=== PATIENT | male | born 1960 | race Caucasian/White ===

== ENCOUNTER 2022-09-19 13:50 | Outpatient (RCR) | payer OTHER, SELFPAY | END 2022-10-26 10:22 | disposition home or self-care (01) | LOC: PT 13:50 | PROVIDERS: PCP Family Medicine; Visit Provider Family Medicine | DX: M25.561 Pain in right knee (principal) | CPT/HCPCS: 97110; 97161 ==

== ENCOUNTER 2023-08-22 07:49 | Observation (INO) | payer OTHER, SELFPAY ==
[2023-08-22] VITALS (29 sets, daily range): BP systolic 84–158; BP diastolic 56–92; PULSE 68–95; TEMP 36.8–37.4; O2SAT 92–100; BMI 34.0; BMI 33.5
--- NOTE | 2023-08-22 08:23 | ED_ITS ---
HPI HPI - General Adult General Chief complaint: Nausea/Vomiting/Diarrhea Stated complaint: SHAKING, NAUSEA Time Seen by Provider: 08/22/23 08:14 Source: patient Mode of arrival: walk-in Limitations: no limitations History of Present Illness HPI narrative: This patient is here complaining of multitude of symptoms. He said he woke up this morning and did not feel very good. He took a shower and then he had shaking chills aches and pains mild headache nausea without vomiting. Does not have a sore throat cough congestion shortness of breath or chest discomfort. She says he aches all over cannot get warm. His partner at home is not ill. He did not take anything for fever desk monitor. He said he took his normal morning medications including thyroid medication. Has not had any urinary problems such as frequency urgency hematuria dysuria or recent infections. He has not been on any antibiotics. Does not have any abdominal discomfort just extreme nausea. He had a normal bowel movement this morning. He had some dental issues but he says his sore upper left tooth is no longer bothering him today. Incidentally, in of interest, he is a spanish medical interpreter. He has not had any bites or scratches or known exposure to pathogens. Incidentally he brings up the topic of leptospirosis as possibility in the differential diagnosis. Related Data Home Medications ?Medication ?Instructions ?Recorded ?Confirmed aspirin 81 mg tablet,delayed 81 mg PO DAILY 08/22/23 08/22/23 release (Adult Aspirin Regimen) levothyroxine 100 mcg tablet 100 mcg PO DAILY 08/22/23 08/22/23 loratadine 10 mg tablet 10 mg PO DAILY 08/22/23 08/22/23 Allergies Allergy/AdvReac Type Severity Reaction Status Date / Time methylprednisolone Allergy Severe Verified 08/22/23 07:55 [From Medrol] Opioid HPI Opioid Management Most Recent Opioid Data: No Data to Display Exam Narrative Exam Narrative: Awake alert pleasant afebrile vital signs stable no respiratory distress pulse oximetry normal. GCS 15 no confusion or altered mental status. HEENT shows neck to be soft and supple no meningeal irritation. His teeth are nontender to percussion. There is no pharyngitis. There is no nuchal rigidity or meningeal irritation. Lungs are clear with no wheeze rales rhonchi or coughing. Heart sounds normal with no clicks rubs gallops or murmur. Abdomen is benign with no tenderness guarding masses rebound or tenderness to palpation. Extremities are warm and dry there is no coolness to the extremities there is no diaphoresis or clamminess. Skin there is no evidence cellulitis phlebitis or abscess formation. There is no scratches bites or anything from his that area exposure that I can determine. Constitutional Vital Signs, click to edit/add: Last Vital Signs Temp 98.4 F 08/22/23 07:55 Pulse 90 08/22/23 07:55 Resp 18 08/22/23 07:55 BP 158/92 H 08/22/23 07:55 Pulse Ox 99 08/22/23 07:55 O2 Del Method Room Air 08/22/23 07:55 Course Vital Signs Vital signs: Vital Signs Temperature 98.4 F 08/22/23 07:55 Pulse Rate 90 08/22/23 07:55 Respiratory Rate 18 08/22/23 07:55 Blood Pressure 158/92 H 08/22/23 07:55 Pulse Oximetry 99 08/22/23 07:55 Oxygen Delivery Method Room Air 08/22/23 07:55 Temperature 98.4 F 08/22/23 07:55 Pulse Rate 90 08/22/23 07:55 Respiratory Rate 18 08/22/23 07:55 Blood Pressure 158/92 H 08/22/23 07:55 Pulse Oximetry 99 08/22/23 07:55 Oxygen Delivery Method Room Air 08/22/23 07:55 Medical Decision Making [facility] Narrative Medical decision making narrative: This patient presents with shaking chills aches nausea very very mild headache with no meningeal irritation or nuchal rigidity or altercation or mental status. No focus of infection. Chest x-ray urinalysis CBC all normal. No elevation of his liver function test but a suspicious history possibly consistent with zoonotic disease. The case was discussed with our on-call hospitalist and we w ill admit him for further ongoing investigation. He is getting a second liter of fluids here in the ER. I have not initiated antibiotics pending a discussion with the hospitalist Discharge Plan Discharge Chief Complaint: Nausea/Vomiting/Diarrhea Clinical Impression: Rigors Patient Disposition: Admitted as Observation Time of Disposition Decision: 10:36 Prescriptions / Home Meds: No Action levothyroxine 100 mcg tablet 100 mcg PO DAILY loratadine 10 mg tablet 10 mg PO DAILY aspirin [Adult Aspirin Regimen] 81 mg tablet,delayed release (DR/EC) 81 mg PO DAILY Print Language: Mongolian Referrals: RENEE SHINE [Primary Care Provider] - 1 week
--- NOTE | 2023-08-22 08:26 | ECG_ITS ---
[facility] Test Date: 2023-08-22 Pat Name: SOLO JIMENEZ Department: Room: - Gender: Male [place] Clerk: : 1960 Requested By: RENEE SHINE Order Number: [id number] Reading MD: STUART MELENDEZ Measurements Intervals [place] Rate: 86 P: 9 MA: 160 QRS: 45 QRSD: 80 T: 58 QT: 330 QTc: 374 Interpretive Statements 1100 Sinus rhythm 0102 ARTIFACT PRESENT 9110 normal ECG Compared to ECG 12/01/2018 21:42:26 No significant changes Electronically Signed On 08-22-2023 22:34:46 EDT by STUART MELENDEZ
[2023-08-22] MEDS: 0.9 % SODIUM CHLORIDE 1,000 ML 999 ML IV (08:36)
[2023-08-22] MEDS: ONDANSETRON PF 4 MG/2 ML VIAL IV ×2 (08:36→13:24)
[2023-08-22 08:46] LABS: Alanine Aminotransferase 30 U/L (16-63); Albumin Globulin Ratio 1.1; Albumin Level 3.7 g/dL (3.4-5.0); Alkaline Phosphatase 81 U/L (46-116); Aspartate Amino Transferase 16 U/L (15-37); BUN Creatinine Ratio 10.6; Bilirubin Total 1.5 mg/dL (0.2-1.0); Calcium 8.9 mg/dL (8.5-10.1); Carbon Dioxide 28.2 mmol/L (21.0-32.0); Chloride 103 mmol/L (98-107); Estimated GFR (African America >60 (>=60); Estimated GFR (Non-African Ame >60 (>=60); Globulin 3.4 g/dL; Glucose 117 mg/dL (74-106); Potassium 4.2 mmol/L (3.5-5.1); Sodium 141 mmol/L (136-145); Total Protein 7.1 g/dL (6.4-8.2)
[2023-08-22 08:51] LABS: Hematocrit 45.9 % (42.0-54.0); Mean Corpuscular HGB Conc 32.7 g/dL (29.9-35.2); Mean Corpuscular Hemoglobin 28.8 pg (25.9-34.0); Mean Corpuscular Volume 88.3 fL (80.0-94.0); Mean Platelet Volume 10.1 fL (9.5-13.5); Platelet Count 203 10^3/uL (150-450); Red Cell Distribution Width 12.1 % (11.0-15.0); White Blood Count 8.1 10^3/uL (4.0-11.0)
[2023-08-22 08:55] LABS: Thyroid Stimulating Hormone 0.639 uIU/mL (0.358-3.740); Troponin I High Sensitivity 13.2 pg/mL (4.0-76.1)
[2023-08-22 08:57] LABS: Lactate/Lactic Acid 4.5 mmol/L (0.4-2.0)
--- NOTE | 2023-08-22 08:58 | XR_ITS ---
[address] [address] Patient Name: SOLO JIMENEZ MRN: [id number] date: 1960 Sex: M Assigned Patient Location: ER Current Patient Location: ER Accession/Order Number: [id number] Exam Date: 08/22/2023 09:03 Report Date: 08/22/2023 09:32 At the request of: ROBIN MATTHEWS Procedure: XR chest 1V EXAM: CHEST 1 VIEW HISTORY: Sepsis TECHNIQUE: Chest, one view. COMPARISON: None. FINDINGS: Low lung volumes with vascular crowding. No focal consolidation, pleural effusion, or pneumothorax. Pulmonary vasculature is within normal limits. Cardiomediastinal silhouette is normal. XR/XR chest 1V IMPRESSION: 1. Expiratory chest without acute cardiopulmonary disease. Electronically authenticated by: WANDA SOTO Date: 08/22/2023 09:32
[2023-08-22 09:06] LABS: Internal Control Within Normal Limits; SARS-CoV-2 Ag NEGATIVE (NEGATIVE)
[2023-08-22 09:06] LABS: Influenza Virus A Antigen Negative; Influenza Virus B Antigen Negative; Internal Control Within Normal Limits
[2023-08-22 09:53] LABS: Bilirubin Urine NEGATIVE (NEGATIVE); Blood Urine NEGATIVE (NEGATIVE); Clarity Urine CLEAR (CLEAR); Color Urine LT. YELLOW (YELLOW); Glucose Urine UA NEGATIVE (NEGATIVE); Ketones Urine NEGATIVE (NEGATIVE); Leukocyte Esterase Urine NEGATIVE (NEGATIVE); Nitrite Urine NEGATIVE (NEGATIVE); Protein Urine NEGATIVE (NEG/TRACE); Urobilinogen Urine 0.2 EU/dL (0.2-1.0); pH Urine 6.5 (5.0-9.0)
[2023-08-22 09:54] LABS: Urine Microscopic Indicated NO
[2023-08-22] MEDS: 0.9 % SODIUM CHLORIDE 1,000 ML 1000 ML IV (10:18)
[2023-08-22 10:23] LABS: Band Neutrophils Absolute 0.4 10^3/uL (0.0-0.3); Lymphocytes Absolute Manual 0.56 10^3/uL (1.20-3.80); Monocytes Absolute Manual 0.24 10^3/uL (0.30-0.80); Segmented Neut Absolute Manual 6.48 10^3/uL (1.4-6.5)
[2023-08-22 10:35] LABS: C Reactive Protein 0.87 mg/dL (<=0.50)
[2023-08-22 10:38] LABS: Erythrocyte Sedimentation Rate 18 mm/hr (<=20)
--- NOTE | 2023-08-22 10:51 | P.HP_ITS ---
HPI H&P: HPI History of Present Illness Chief complaint: SHAKING, NAUSEA Narrative: Patient is a 63 y.o white male with hypothyroidism (goiter) who presented to the ER today after not feeling well. He [place] and showered and started to shake, having chills, body aches, headache, nausea without vomiting. He had a normal Bowel movement this morning. No cough, sore throat, fever, shortness of breath or chest pain, or urinary symptoms. 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 No abdominal discomfort or pain just nausea. ER findings of normal CHest X-ray, CBC, cmp, urine. Patient received IVF. Will be admitted to observation for elevated lactate 4.8 and further work up of Viral illness vs Zoonotic infection. Covid and influenza negative. Opioid HPI Opioid Management Most Recent Opioid Data: Ur Phencyclidine Scrn Negative (NEGATIVE) 08/22/23 11:10 Review of Systems ROS Narrative ROS: a complete review of systems were reviewed with patient and are positive as below or listed in History of Chief Complaint. General: no fever, but chills, no night sweats Head: no headache, trauma, visual changes, nausea or vomiting Skin: no reported rashes, itching or sores Eyes: no blurriness of vision Ears: no reported hearing loss, vertigo, earache, or tinnitus Throat: no sore throat, hoarseness, swelling of neck, or tongue pain Heart: no chest pain Lungs: no shortness of breath or cough GI: no diarrhea or vomiting, but nausea Urinary: no urinary urgency, frequency or pain Neuro: no numbness or tingling HEM: no bleeding issues or bruising ENDO: thyroid problems Psych: no anxiety or depression [facility] Medical History (Updated 08/22/23 @ 12:27 by Marina Greenberg DO) Hypothyroidism (acquired) ?E03.9 - Hypothyroidism, unspecified (ICD-10) Meds Home Medications and Allergies Home Medications ?Medication ?Instructions ?Recorded ?Confirmed ?Type aspirin 81 mg tablet,delayed 81 mg PO DAILY 08/22/23 08/22/23 History release (Adult Aspirin Regimen) levothyroxine 100 mcg tablet 100 mcg PO DAILY 08/22/23 08/22/23 History loratadine 10 mg tablet 10 mg PO DAILY 08/22/23 08/22/23 History Allergies Allergy/AdvReac Type Severity Reaction Status Date / Time methylprednisolone Allergy Severe Verified 08/22/23 07:55 [From Medrol] Exam Narrative Exam Narrative: General: Patient is alert, and oriented to person, place and time with normal affect, proper hygiene Skin: no visible rashes, or ulcers Head: atraumatic, acephalic Eyes: PERRLA, no nystagmus present, conjunctiva clear, no scleral icterus Ears: normal gross auditory acuity Heart: Normal rate and rhythm, no murmurs/rubs/gallops Lungs: no audible wheezes, crackles and normal breath sounds all lung rdz Abdomen: Normal audible bowel sounds, no distension, No palpable masses, no organomegaly, no rebound/guarding/ or rigidity Musculoskeletal: no swelling bilateral lower extremities Neuro: CN II-X grossly intact, normal sensation upper and lower extremities Constitutional Vital Signs, click to edit/add: Last Vital Signs Temp 98.2 F 08/22/23 09:16 Pulse 85 08/22/23 10:30 Resp 16 08/22/23 10:30 BP 130/62 08/22/23 10:30 Pulse Ox 96 08/22/23 10:30 O2 Del Method Room Air 08/22/23 09:29 Results Labs Labs: Short CBC 08/22/23 Range/Units 08:00 WBC 8.1 (4.0-11.0) 10^3/uL Hgb 15.0 (14.0-18.0) g/dL Hct 45.9 (42.0-54.0) % Plt Count 203 (150-450) 10^3/uL BMP 08/22/23 08:00 Sodium 141 Potassium 4.2 Chloride 103 Carbon Dioxide 28.2 BUN 12.0 Creatinine 1.13 Glucose 117 H Calcium 8.9 Liver Function 08/22/23 Range/Units 08:00 Total Bilirubin 1.5 H (0.2-1.0) mg/dL AST 16 (15-37) U/L ALT 30 (16-63) U/L Alkaline Phosphatase 81 (46-116) U/L Albumin 3.7 (3.4-5.0) g/dL Urine 08/22/23 Range/Units 09:05 Urine Color Lt. yellow (YELLOW) Urine Clarity Clear (CLEAR) Urine pH 6.5 (5.0-9.0) Ur Specific [place] 1.010 (1.005-1.025) Urine Protein Negative (NEG/TRACE) mg/dL Urine Glucose (UA) Negative (NEGATIVE) mg/dL Assessment and Plan Assessment and Plan (1) Nausea: Assessment and Plan: Broad differential, resp panel pending, lipase, CK level, mag, Thyroid studies all pending. Vitals stable. Continue with IVF and antiemetics. on Telemetry. (2) Chills (without fever): (3) Hypothyroidism (acquired): Assessment and Plan: continue levothyroxine, recheck TFT's Plan patient is full code SCD's and compression hose for DVT prophlaxis further work up, IVF, symptomatic treatment for now, hopeful discharge home tomorrow pending work up results.
[2023-08-22 11:07] LABS: Adenovirus NOT DETECTED (NOT DETECTE); Bordetella parapertussis NOT DETECTED (NOT DETECTE); Coronavirus 229E NOT DETECTED (NOT DETECTE); Coronavirus HKU1 NOT DETECTED (NOT DETECTE); Coronavirus NL63 NOT DETECTED (NOT DETECTE); Coronavirus OC43 NOT DETECTED (NOT DETECTE); Human Metapneumovirus NOT DETECTED (NOT DETECTE); Human Rhinovirus/Enterovirus NOT DETECTED (NOT DETECTE); Influenza A NOT DETECTED (NOT DETECTE); Influenza B NOT DETECTED (NOT DETECTE); Mycoplasma pneumoniae NOT DETECTED (NOT DETECTE); Parainfluenza Virus 1 NOT DETECTED (NOT DETECTE); Parainfluenza Virus 2 NOT DETECTED (NOT DETECTE); Parainfluenza Virus 3 NOT DETECTED (NOT DETECTE); Parainfluenza Virus 4 NOT DETECTED (NOT DETECTE); Respiratory Syncytial Virus NOT DETECTED (NOT DETECTE); SARS-CoV-2 NOT DETECTED (NOT DETECTE)
[2023-08-22 11:25] LABS: Creatine Kinase 48 U/L (39-308)
[2023-08-22 11:35] LABS: Magnesium 1.5 mg/dL (1.8-2.4); TSH W/ REFLEX FT4 0.451 uIU/mL (0.358-3.740)
[2023-08-22 11:40] LABS: Lactate/Lactic Acid 3.7 mmol/L (0.4-2.0)
[2023-08-22 11:44] LABS: Amphetamine Screen Urine NEGATIVE (NEGATIVE); Barbiturates Screen Urine NEGATIVE (NEGATIVE); Benzodiazepines Screen Urine NEGATIVE (NEGATIVE); Buprenorphine Screen Urine NEGATIVE (NEGATIVE); Cannabinoid Screen Urine NEGATIVE (NEGATIVE); Cocaine Screen Urine NEGATIVE (NEGATIVE); Methadone Screen Urine NEGATIVE (NEGATIVE); Methamphetamines Screen Urine NEGATIVE (NEGATIVE); Opiate Screen Urine NEGATIVE (NEGATIVE); Oxycodone Screen Urine NEGATIVE (NEGATIVE); Phencyclidine Screen Urine NEGATIVE (NEGATIVE); Tricyclic Antidepressant Urine NEGATIVE (NEGATIVE)
[2023-08-22] MEDS: LACTATED RINGER'S SOLUTION 1,000 ML 125 ML IV ×2 (13:24→21:09)
[2023-08-22] MEDS: IBUPROFEN 400 MG TABLET PO (13:33)
[2023-08-22] MEDS: MAGNESIUM SULFATE/WATER 2 GM/50 ML PREMIX IV (13:34)
--- NOTE | 2023-08-22 14:07 | SWNOTE1 ---
SW met with pt to discuss any dc needs. Pt is independent with all ADL's and is still working. Pt has no anticipated discharge needs. SW to follow as needed.
[2023-08-22] MEDS: ACETAMINOPHEN 325 MG TABLET 650 MG PO (22:20)
[2023-08-23] VITALS (12 sets, daily range): BP systolic 114–152; BP diastolic 71–77; PULSE 59–97; TEMP 36.6–37.1; O2SAT 95–97
[2023-08-23] MEDS: LACTATED RINGER'S SOLUTION 1,000 ML 125 ML IV (04:34)
[2023-08-23] MEDS: LEVOTHYROXINE SODIUM 100 MCG TABLET PO (05:36)
[2023-08-23] MEDS: IBUPROFEN 400 MG TABLET PO (05:36)
[2023-08-23 05:43] LABS: Basophils Absolute Auto 0.1 10^3/uL (0.0-0.1); Basophils Percent Auto 0.4 % (0.2-2.0); Eosinophils Percent Auto 0.3 % (0.9-7.0); Hematocrit 39.3 % (42.0-54.0); Hemoglobin 12.8 g/dL (14.0-18.0); Immature Granulocytes Abs Auto 0.03 10^3/uL (0.00-0.03); Immature Granulocytes Pct Auto 0.3 % (0.0-0.5); Lymphocytes Absolute Auto 0.7 10^3/uL (1.2-3.8); Lymphocytes Percent Auto 6.4 % (20.5-60.0); Mean Corpuscular HGB Conc 32.6 g/dL (29.9-35.2); Mean Corpuscular Hemoglobin 29.4 pg (25.9-34.0); Mean Corpuscular Volume 90.3 fL (80.0-94.0); Monocytes Absolute Auto 0.5 10^3/uL (0.3-0.8); Monocytes Percent Auto 4.1 % (1.7-12.0); Neutrophils Absolute Auto 10.1 10^3/uL (1.4-6.5); Neutrophils Percent Auto 88.5 % (43.0-75.0); Platelet Count 145 10^3/uL (150-450); Red Blood Count 4.35 10^6/uL (4.70-6.10); Red Cell Distribution Width 12.8 % (11.0-15.0); White Blood Count 11.4 10^3/uL (4.0-11.0)
[2023-08-23 05:53] LABS: Magnesium 2.3 mg/dL (1.8-2.4)
[2023-08-23 05:57] LABS: Alanine Aminotransferase 29 U/L (16-63); Albumin Level 2.9 g/dL (3.4-5.0); Alkaline Phosphatase 57 U/L (46-116); Anion Gap 7.9; Aspartate Amino Transferase 22 U/L (15-37); BUN Creatinine Ratio 14.2; Bilirubin Total 1.2 mg/dL (0.2-1.0); Calcium 8.2 mg/dL (8.5-10.1); Carbon Dioxide 27.9 mmol/L (21.0-32.0); Chloride 106 mmol/L (98-107); Estimated GFR (African America >60 (>=60); Estimated GFR (Non-African Ame >60 (>=60); Globulin 2.9 g/dL; Glucose 116 mg/dL (74-106); Potassium 3.8 mmol/L (3.5-5.1); Sodium 138 mmol/L (136-145); Total Protein 5.8 g/dL (6.4-8.2)
[2023-08-23] MEDS: ASPIRIN 81 MG TABLET.DR PO (08:34)
[2023-08-23] MEDS: CETIRIZINE HCL 10 MG TABLET PO (08:34)
[2023-08-23 09:58] LABS: A. calcoaceticus-baumannii Cpx NOT DETECTED (NOT DETECTE); Bacteroides fragilis NOT DETECTED (NOT DETECTE); Candida albicans NOT DETECTED (NOT DETECTE); Candida auris NOT DETECTED (NOT DETECTE); Candida glabrata NOT DETECTED (NOT DETECTE); Candida krusei NOT DETECTED (NOT DETECTE); Candida parapsilosis NOT DETECTED (NOT DETECTE); Candida tropicalis NOT DETECTED (NOT DETECTE); Cryptococcus neoformans/gattii NOT DETECTED (NOT DETECTE); Enterobacter cloacae complex NOT DETECTED (NOT DETECTE); Enterobacterales NOT DETECTED (NOT DETECTE); Enterococcus faecalis NOT DETECTED (NOT DETECTE); Enterococcus faecium NOT DETECTED (NOT DETECTE); Haemophilus influenzae NOT DETECTED (NOT DETECTE); Klebsiella aerogenes NOT DETECTED (NOT DETECTE); Klebsiella pneumoniae group NOT DETECTED (NOT DETECTE); Listeria monocytogenes NOT DETECTED (NOT DETECTE); Neisseria meningitidis NOT DETECTED (NOT DETECTE); Proteus spp. NOT DETECTED (NOT DETECTE); Pseudomonas aeruginosa NOT DETECTED (NOT DETECTE); Salmonella spp. NOT DETECTED (NOT DETECTE); Serratia marcescens NOT DETECTED (NOT DETECTE); Staphylococcus epidermidis NOT DETECTED (NOT DETECTE); Staphylococcus lugdunensis NOT DETECTED (NOT DETECTE); Stenotrophomonas maltophilia NOT DETECTED (NOT DETECTE); Streptococcus agalactiae NOT DETECTED (NOT DETECTE); Streptococcus pneumoniae NOT DETECTED (NOT DETECTE); Streptococcus pyogenes NOT DETECTED (NOT DETECTE); Streptococcus spp. NOT DETECTED (NOT DETECTE)
--- NOTE | 2023-08-23 11:17 | US_ITS ---
[place] [id number] Patient Name: SOLO JIMENEZ MRN: [id number] date: 1960 Sex: M Assigned Patient Location: MS Current Patient Location: MS Accession/Order Number: [id number] Exam Date: 08/23/2023 13:00 Report Date: 08/23/2023 14:27 At the request of: SHAIKH AURORA Procedure: US right upper quadrant EXAMINATION: US right upper quadrant HISTORY: Nausea COMPARISON: No relevant comparison available. TECHNIQUE: Transabdominal evaluation of the right upper quadrant. FINDINGS: LIVER: Increased echogenicity suggestive of fatty infiltration. Focal areas favoring fatty sparing. No focal mass. Color Doppler demonstrates blood flow within the hepatic veins. PORTAL VEIN: Duplex Doppler demonstrates normal hepatopetal flow pattern with flow velocity averaging 26 cm/s. GALLBLADDER: Abnormal gallbladder wall thickening, 4 mm. No stones or free fluid. Negative sonographic Talamantes's sign. BILIARY: No abnormal dilation or stones. Common bile duct diameter is within normal limits. PANCREASE: No visible mass, abnormal atrophy, or duct dilation. KIDNEY: No hydronephrosis. No visible mass or stones. Size: 10.6 x 6.0 x 6.0 cm US/US right upper quadrant IMPRESSION: 1. Mild gallbladder wall thickening without appreciable stones, free fluid, or abnormal duct dilation. Possibly sequela of chronic cholecystitis. Acute cholecystitis is felt less likely. Electronically authenticated by: ISAIAH CARO Date: 08/23/2023 14:27
[2023-08-23 11:25] LABS: Source Blood
[2023-08-23 11:27] LABS: Staphylococcus spp. DETECTED (NOT DETECTE)
[2023-08-23 11:57] LABS: Lactate/Lactic Acid 1.1 mmol/L (0.4-2.0)
--- NOTE | 2023-08-23 12:21 | CM.NOTE ---
Rounds made with Dr. Pisano, possible discharge to home this afternoon. Pt is afebrile and feels he is back to baseline. Dr. Pisano discussed with pt labs and diagnosis, awaiting blood cultures.
--- NOTE | 2023-08-23 12:36 | PM.DS1 ---
DS: Providers Provider Date of admission: 08/22/23 11:27 Primary care physician: RENEE WREN Admitting clinician: Marina Greenberg Attending physician on admission: Marina Greenberg Attending physician on discharge: Shaikh Aliya Discharging clinician: Shaikh Aliya Anticipated date of discharge: 08/23/23 DS: Diagnosis Discharge Diagnosis (1) SIRS (systemic inflammatory response syndrome): Assessment and plan: Presented with SIRS -(HR/RR) -no source of infection identified. Normal CXR, Normal UA. Had nausea on presentation but no diarrhea, and GI symptoms now resolved. Blood cultures positive for staph species - likely contaminant - final ID is pending. (2) Nausea: Assessment and plan: Resolved. (3) Chills (without fever): Assessment and plan: Resolved. (4) Lactic acidosis: Assessment and plan: 4-5 --> now normal. Unclear explanation (5) Hypothyroidism (acquired): Assessment and plan: On levothyroxine. (6) Chronic cholecystitis without calculus: Assessment and plan: US - possible chronic cholecystitis. No gallstones. No RUQ pain. Follow up with surgery as outpatient. (7) Blood bacterial culture positive: Assessment and plan: Staph detected on blood PCR. Likely skin contaminant. DS: Summary Hospital Course Hospital Course: 63-year-old male presented with sudden onset rigors/chills and nausea after he took a shower yesterday. He had no other symptoms or associated complaints and denies cough, shortness of breath, abdominal pain, constipation, diarrhea, urinary complaints. 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 Come in ED reviewed positive SIRS along with lactic acidosis. Chest x-ray is normal. No evidence of UTI. He did have minimal elevation in bilirubin for which an abdominal ultrasound was ordered. US liver shows possible chronic cholecystitis, no gallstones. Lactic acidosis resolved with IV fluids. Blood cultures are positive for staph species likely skin contaminant. Full identification is pending. Even though [facility] is low incidence of leptospirosis, in the absence of alternative diagnosis, it is not unreasonable to treat him for possible anicteric acute phase of leptospirosis with oral doxycycline given his occupational history. Patient stable for discharge medically. Will need follow up with PCP and General Surgery. Status at Discharge Functional status at discharge: independent ambulation Overall status at discharge: patient is back to baseline Time Spent with Patient Time attestation: Total time spent providing and/or coordinating discharge services: Time spent: greater than 30 minutes Exam Constitutional Vital Signs, click to edit/add: Last Vital Signs Temp 98.4 F 08/23/23 08:29 Pulse 62 08/23/23 12:00 Resp 18 08/23/23 08:29 BP 114/71 08/23/23 08:29 Pulse Ox 95 08/23/23 11:24 O2 Del Method Room Air 08/23/23 11:24 Documenting provider has reviewed patient's vital signs: yes Common normals: no apparent distress and oriented x3 General appearance: cooperative HENMT Common normals: normocephalic and head/scalp atraumatic Head and scalp: normocephalic and atraumatic Eye Common normals: conjunctivae normal and no scleral icterus Conjunctiva: conjunctiva(e) normal Respiratory Common normals: normal respiratory effort and clear to auscultation bilaterally Effort & inspection: able to speak in complete sentences Auscultation: clear to auscultation bilaterally Cardio Common normals: regular rate, S1 normal heart sound and S2 normal heart sound Rate: regular rate Heart sounds: S1 normal and S2 normal GI Common normals: Normal to inspection, nondistended, normoactive bowel sounds present, soft to palpation, non-tender and no hepatosplenomegaly Palpation: soft and no hepatosplenomegaly Extremity Common normals: no clubbing, cyanosis or edema Neuro Common normals: oriented x3, moves all extremities and no focal motor deficits Psych Common normals: mental status grossly normal, denies hallucinations, denies homicidal ideation and denies suicidal ideation DS: Data Data Completed and Pending Labs on day of discharge: Labs from last 24 hours 08/23/23 08/23/23 08/22/23 11:32 05:13 09:23 WBC 11.4 H RBC 4.35 L Hgb 12.8 L Hct 39.3 L MCV 90.3 MCH 29.4 MCHC 32.6 RDW 12.8 Plt Count 145 L MPV 10.0 Neut % (Auto) 88.5 H Lymph % (Auto) 6.4 L [place] % (Auto) 4.1 Eos % (Auto) 0.3 L Baso % (Auto) 0.4 Neut # (Auto) 10.1 H Lymph # (Auto) 0.7 L [place] # (Auto) 0.5 Eos # (Auto) 0.0 Baso # (Auto) 0.1 Abs Immat Gran (auto) 0.03 Imm/Tot Granulo (auto) 0.3 Sodium 138 Potassium 3.8 Chloride 106 Carbon Dioxide 27.9 Anion Gap 7.9 BUN 15.0 Creatinine 1.06 Est GFR ( Amer) >60 Est GFR (Non-Af Amer) >60 BUN/Creatinine Ratio 14.2 Glucose 116 H Lactate 1.1 Calcium 8.2 L Magnesium 2.3 Total Bilirubin 1.2 H AST 22 ALT 29 Alkaline Phosphatase 57 Total Protein 5.8 L Albumin 2.9 L Globulin 2.9 Albumin/Globulin Ratio 1.0 Specimen Source Blood A.calcoaceticus-baumannii cmplx PCR Not detected Adenovirus (PCR) Bacteroides fragilis Not detected B. pertussis DNA (PCR) B.parapertussis DNA PCR Jen albicans (PCR) Not detected Jen auris (PCR) Not detected C. glabrata (PCR) Not detected C. krusei (PCR) Not detected C. parapsilosis (PCR) Not detected C. tropicalis (PCR) Not detected C. pneumoniae DNA (PCR) Coronavirus Type OC43 Coronavirus Type HKU1 Coronavirus Type 229E Coronavirus Type NL63 C. neoform/gattii (PCR) Not detected Enterobacterales (PCR) Not detected E. cloacae complex PCR Not detected Enterococc faecalis PCR Not detected Enterococc faecium PCR Not detected E. coli (PCR) Not detected H. influenzae (PCR) Not detected Human Metapneumovir PCR Influenza Type A (PCR) Influenza Type B (PCR) Klebsiella aerogenes (PCR) Not detected Klebsiella oxytoca PCR Not detected K. pneumoniae group (PCR) Not detected List. monocytogenes PCR Not detected M. pneumoniae (PCR) N. meningitidis (PCR) Not detected Parainfluenza PCR Parainfluenza 2 (PCR) Parainfluenza 3 (PCR) Parainfluenza 4 (PCR) Proteus spp. (copies/mL) Not detected RSV (RT-PCR) Entero/Rhino (PCR) Salmonella spp. (PCR) Not detected SARS-CoV-2 (PCR) Serratia marcescens PCR Not detected Staphylococcus sp PCR Detected A* Staph aureus (PCR) Not detected mecA/C & MREJ Resist Gene Not applicable mecA/C-Methicil Resis Gene Not applicable mcr-1 Colistin Res Gene PCR Not applicable Staph epidermidis (PCR) Not detected Staph lugdunensis (TEM-PCR) Not detected S. maltophilia (PCR) Not detected Streptococcus sp PCR Not detected Strep agalactiae (PCR) Not detected Strep pneumoniae (PCR) Not detected S. pyogenes (PCR) Not detected P. aeruginosa (PCR) Not detected Liza/B-Vanco Res Genes Not applicable blaIMP Car res Gene PCR Not applicable KPC (blaKPC) Detect PCR Not applicable NDM (blaNDM) Detect PCR Not applicable OXA-48 Carbapenem Resis Gene (PCR) Not applicable blaVIM Car Res Gene PCR Not applicable CTX-M ESBL (PCR) Not applicable 08/22/23 08:45 WBC RBC Hgb Hct MCV MCH MCHC RDW Plt Count MPV Neut % (Auto) Lymph % (Auto) [place] % (Auto) Eos % (Auto) Baso % (Auto) Neut # (Auto) Lymph # (Auto) [place] # (Auto) Eos # (Auto) Baso # (Auto) Abs Immat Gran (auto) Imm/Tot Granulo (auto) Sodium Potassium Chloride Carbon Dioxide Anion Gap BUN Creatinine Est GFR ( Amer) Est GFR (Non-Af Amer) BUN/Creatinine Ratio Glucose Lactate Calcium Magnesium Total Bilirubin AST ALT Alkaline Phosphatase Total Protein Albumin Globulin Albumin/Globulin Ratio Specimen Source A.calcoaceticus-baumannii cmplx PCR Adenovirus (PCR) Not detected Bacteroides fragilis B. pertussis DNA (PCR) Not detected B.parapertussis DNA PCR Not detected Jen albicans (PCR) Jen auris (PCR) C. glabrata (PCR) C. krusei (PCR) C. parapsilosis (PCR) C. tropicalis (PCR) C. pneumoniae DNA (PCR) Not detected Coronavirus Type OC43 Not detected Coronavirus Type HKU1 Not detected Coronavirus Type 229E Not detected Coronavirus Type NL63 Not detected C. neoform/gattii (PCR) Enterobacterales (PCR) E. cloacae complex PCR Enterococc faecalis PCR Enterococc faecium PCR E. coli (PCR) H. influenzae (PCR) Human Metapneumovir PCR Not detected Influenza Type A (PCR) Not detected Influenza Type B (PCR) Not detected Klebsiella aerogenes (PCR) Klebsiella oxytoca PCR K. pneumoniae group (PCR) List. monocytogenes PCR M. pneumoniae (PCR) Not detected N. meningitidis (PCR) Parainfluenza PCR Not detected Parainfluenza 2 (PCR) Not detected Parainfluenza 3 (PCR) Not detected Parainfluenza 4 (PCR) Not detected Proteus spp. (copies/mL) RSV (RT-PCR) Not detected Entero/Rhino (PCR) Not detected Salmonella spp. (PCR) SARS-CoV-2 (PCR) Not detected Serratia marcescens PCR Staphylococcus sp PCR Staph aureus (PCR) mecA/C & MREJ Resist Gene mecA/C-Methicil Resis Gene mcr-1 Colistin Res Gene PCR Staph epidermidis (PCR) Staph lugdunensis (TEM-PCR) S. maltophilia (PCR) Streptococcus sp PCR Strep agalactiae (PCR) Strep pneumoniae (PCR) S. pyogenes (PCR) P. aeruginosa (PCR) Liza/B-Vanco Res Genes blaIMP Car res Gene PCR KPC (blaKPC) Detect PCR NDM (blaNDM) Detect PCR OXA-48 Carbapenem Resis Gene (PCR) blaVIM Car Res Gene PCR CTX-M ESBL (PCR) Discharge Plan Discharge Disposition: Home, Self-Care Discharge Medications: New doxycycline hyclate 100 mg capsule 100 mg PO BID 7 Days Qty: 14 0RF Continued levothyroxine 100 mcg tablet 100 mcg PO DAILY loratadine 10 mg tablet 10 mg PO DAILY aspirin [Adult Aspirin Regimen] 81 mg tablet,delayed release (DR/EC) 81 mg PO DAILY Activity: increase activity as tolerated Diet: advance to your usual diet Print Language: Estonian Patient Instructions: Doxycycline (By mouth), Acute Nausea and Vomiting (DC) Forms: Portal Instructions Follow Up Appointments: August 28 @ 7:45am with Dr. Wren [phone] Follow up with General Surgery in 2-3 weeks
[2023-08-23] MEDS: ACETAMINOPHEN 325 MG TABLET 650 MG PO (14:36)
--- NOTE | 2023-08-26 15:39 | CM.DCFOLLOWU ---
Person spoke with: patient How are you feeling? not 100%, but getting better How is your pain? none Did you understand your discharge instructions? yes Do you have any questions about your discharge instructions? no Were you given any prescriptions at discharge? yes Were you able to get your prescriptions filled? yes Do you understand how to take your medications as ordered? yes Do you have any questions about your follow up appointment and do you plan to keep your follow up appointment? no questions, has spoke to his PCP already in regards to follow up Is there anything else that you would like to discuss? no Questions/Comments/Concerns/Other: no
== END 2023-08-23 15:40 | disposition home or self-care (01) ==
LOC: ER 10:37 → MS 11:30
PROVIDERS: Internal Medicine; Admitting Provider Family Medicine; Emergency Provider Emergency Medicine Emergency Medical Services; PCP Family Medicine; Visit Provider Family Medicine
DX: R11.0 Nausea (principal); R65.10 Systemic inflammatory response syndrome (SIRS) of non-infectious origin without acute organ dysfunction; R68.83 Chills (without fever); E03.9 Hypothyroidism, unspecified; Z79.890 Hormone replacement therapy; E83.42 Hypomagnesemia; E87.20 Acidosis, unspecified; K81.1 Chronic cholecystitis; Z20.822 Contact with and (suspected) exposure to COVID-19
CPT/HCPCS: 0202U; 36415; 71045; 76705; 80053; 80307; 81003; 82550; 83605; 83690; 83735; 84443; 84484; 85007; 85025; 85027; 85652; 86140; 87040; 87150; 87186; 87804; 87811; 93005; 94761; 96374; 96375; 96376; 99285; G0378

== ENCOUNTER 2023-09-05 07:22 | Outpatient (OUT) | payer OTHER, SELFPAY ==
--- NOTE | 2023-09-05 07:24 | US_ITS ---
[address] [address] Patient Name: SOLO JIMENEZ MRN: [id number] date: 1960 Sex: M Assigned Patient Location: US Current Patient Location: US Accession/Order Number: [id number] Exam Date: 09/05/2023 07:33 Report Date: 09/05/2023 08:07 At the request of: LOULOU CRUZ Procedure: US thyroid EXAMINATION: US thyroid HISTORY: Acquired Hypothyroidism E03.9, Multinodular Goiter E04.2 COMPARISON: 07/31/2022 TECHNIQUE: Sonographic images of the thyroid gland were obtained. FINDINGS: The right thyroid lobe measures 4.7 x 2.0 x 1.8 cm. Heterogeneous echotexture. Multiple nodules. The thyroid isthmus measures 0.9 cm, heterogeneous. The left thyroid lobe measures 4.8 x 1.7 x 1.1 cm. Heterogeneous echotexture. Multiple nodules The 2 most suspicious nodules: Nodule 1: Right thyroid lobe. 1.7 x 1.3 x 1.2 cm. Solid, isoechoic, tall, smooth margins, [place] calcifications. TR 5 Nodule 2: Left thyroid lobe. 1.2 x 1.3 x 1.0 cm. Solid, hypoechoic, wide, smooth, no calcifications. TR 4. US/US thyroid IMPRESSION: Stable multinodular thyroid gland TI-RADS: The [employer] TI-RADS committee's white paper recommendations for thyroid lesions classified as TR5 (highly suspicious) are listed below: > 0.5 cm. Annual ultrasound follow-up for up to 5 years. > 1.0 cm. FNA. J. Am Melva Radiol 2017;14:587-595. Electronically authenticated by: CHRIS HOLLEY Date: 09/05/2023 08:07
--- OUTSIDE RECORDS SUMMARY | 2023-09-05 07:24 | XMS_ITS ---
Patient Summarization (C-CDA 2.1 CCD) Created on: September 05, 2023 SOLO JIMENEZ : 1960 Sex: Male Author Organization Sample organization Care Team Providers Care Oncology Nurse Navigator Name Role Phone MD Annel Eaton Primary Care Provider MD Jairo Estevez Attending Provider Annel Eaton Primary Care Unavailable Jairo Estevez Admitting UnavailJairo Collins Attending UnavailJairo Collins Attending Unavailabl chandler Eaton, Annel Lemus Primary Care Unavailable Jairo Estevez Admitting Unavailabl e EATON ., DR ANNEL Lemus Primary Care Unavailable SCOTT ., OLGA Admitting Unavailable SCOTT ., OLGA Attending Unavailable SCOTT ., OLGA Consulting Unavailable TIMMIS, DR JAMIL Admitting Unavailable TIMMIS, DR JAMIL Attending Unavailable EATON ., DR ANNEL Lemus Primary Care Unavailable TIMMIS, DR JAMIL Consulting Unavailable ZIEBTOBY, DR ISAIAH Harden Consulting Unavailable EATON ., DR ANNEL Lemus Admitting Unavailable EATON ., DR ANNEL Lemus Attending Unavailable EATON ., DR ANNEL Lemus Primary Care Unavailable EATON ., DR ANNEL Lemus Consulting Unavailable TIMMIS, DR JAMIL Admitting Unavailable TIMMIS, DR JAMIL Attending Unavailable EATON ., DR ANNEL Lemus Primary Care Unavailable TIMMIS, DR JAMIL Consulting Unavailable LOGAN, DR CHRIS Samuel Consulting Unavailable TIMMIS, DR JAMIL Admitting Unavailable TIMMIS, DR JAMIL Attending Unavailable EATON ., DR ANNEL Lemus Primary Care Unavailable TIMMIS, DR JAMIL Consulting Unavailable GORDO, DR ISAIAH Harden Consulting Unavailable [place] Wren Primary Care Physician [phone] [place] Wren Attending Unavailable [place] Wren Admitting Unavailable [place] Wren Admitting Unavailable [place] Wren Attending Unavailable [place] Wren Admitting Unavailable [place] Wren Attending Unavailable [place] Wren Attending Unavailable [place] Wren Attending Unavailable [place] Wren Attending Unavailable [place] Wren Attending Unavailable [place] Wren Attending Unavailable ROBERT GOODMAN Admitting Unavailable ROBERT GOODMAN Attending Unavailable ROBERT GOODMAN Referring Unavailable [place] Wren Admitting Unavailable [place] Wren Attending Unavailable [place] Wren Attending Unavailable [place] Wren Admitting Unavailable Allergies Allergy Classification Reported Allergen(s) Allergy Type Date of Onset Reaction(s) Facility (3 sources) Bee pollen; Translations: [bee pollen] Allergy to substance 12-22-19 17 Hives [facility] (8 sources) methylPREDNISolone; Translations: [methylprednisolone] Drug Allergy 12-22-19 17 Unknown (qualifier value) [facility] (1 source) bee venom Drug allergy (disorder) 02-25-20 13 [facility] (1 source) methylPREDNISolone Drug Allergy 02-25-20 13 [facility] (1 source) Shellfish Drug allergy (disorder) 02-18-20 13 [facility] (5 sources) Bee/Wasp/Ant venom; Translations: [Bee Stings] Food allergy Unknown (qualifier value) [facility] (5 sources) predniSONE; Translations: [prednisone] Drug Allergy Unknown (qualifier value) [facility] Encounters Encounter Date Encounter Type Care Provider Facility Start: 09-08-2024 ambulatory [place] Wren Facility :[facility] Start: 08-30-2023 ambulatory [place] Wren Facility:[facility]3] Start: 08-29-2023 End: 08-29-2023 Lab Drop off [place] Wren [facility] Start: 08-29-2023 End: 08-29-2023 ambulatory [place] Wren Facility:[facility] Start: 08-26-2023 ambulatory [place] Wren Facility :CD:[id number] Start: 01-02-2023 End: 01-02-2023 ambulatory ROBERT GOODMAN Facility:[facility] Start: 12-10-2022 End: 12-10-2022 ambulatory Chico Wren Facility:[facility] Start: 11-06-2022 End: 11-06-2022 Lab Drop off [place] Wren [facility] Start: 11-06-2022 End: 11-06-2022 ambulatory [place]ico Pereyra Holger Facility:[facility] Start: 10-31-2022 End: 10-31-2022 ambulatory [place]ico Pereyra Holger Facility:[facility] Start: 10-31-2022 End: 10-31-2022 Patient encounter procedure Ch[place] ChandlerGita Holger [facility] Start: 09-10-2022 End: 09-10-2022 ambulatory [facility] Wren [facility] Start: 09-06-2022 ambulatory [place] Wren Facility [facility] Start: 07-31-2022 End: 08-01-[address] LOULOU CRUZ Facility: Start: 04-05-2022 End: 04-05-[address] LOULOU CRUZ Facility:[facility] Start: 02-20-2022 End: 02-21-[address] LOULOU CRUZ Facility:[facility] Start: 12-29-2021 End: 12-29-2021 ambulatory Annel Eaton Facility:[facility] Start: 12-29-2021 End: 12-29-2021 Admission to same day surgery center MD Annel Eaton Work Phone: [facility] Start: 12-29-2021 End: 12-29-2021 ambulatory MD Annel Eaton Work Phone: [facility] Work Phone: Start: 12-27-2021 End: 12-27-2021 ambulatory Jairo Estevez Facility:[facility] Start: 12-27-2021 End: 12-27-2021 ambulatory MD Annel Eaton Work Phone: [facility] Work Phone: Start: 12-27-2021 End: 12-27-2021 Patient encounter procedure MD Annel Eaton Work Phone: [facility] Start: 10-25-2021 End: 10-26-[address] ANNEL EATON . Facility:[facility] Start: 10-19-2021 End: 10-19-[address] ANNEL EATON . Facility: Goals Date Patient Goal Desired Activity /State Immunizations Immunization Date Immunization Notes Care Provider Fa pauline 09-26-2021 SARS-CoV-2 mRNA (lwlgvsmnuuu-pkuc-algkf se) vaccine [place] Wren [facility] 01-26-2021 influenza virus vaccine, unspecified formulation [place] Wren [facility] 01-26-2021 SARS-CoV-2 (COVID-19 ) mRNA BNT-162b2 vax [place] Wren [facility] Comment on above: Result Comment: 2022: [id number] 09-16-2020 tetanus toxoid, redu naveed diphtheria toxoid, and acellular pertussis vaccine, adsorbed [place] Wren [facility] 06-28-2020 SARS-CoV-2 (COVID-19 ) mRNA BNT-162b2 vax [place] W[place] [facility] 06-06-2020 SARS-CoV-2 (COVID-19 ) mRNA BNT-162b2 [employer] [place] Wren [facility] 01-28-2020 influenza virus vaccine, unspecified formulation [place] Wren [facility] 01-05-2019 influenza virus vaccine, unspecified formulation [place] Wren [facility] Medications Current Medications Medication Drug Class(es) Dates Sig (Normalized) Sig (Original) aspirin 81 mg delayed release oral tablet (3 sources) Platelet Aggregation Inhibitor, Nonsteroidal Anti-inflammatory Drug Start: 09-10-2022 take 1 tablet by mouth once daily aspirin 81 mg Oral EC Tab 81 mg = 1 tab(s), Oral, Daily, Refills(s) 0 Start Date: 09/10/22 Status: Ordered buPROPion hydrochloride 75 mg oral tablet (1 source) Aminoketone Start: 12-29-2021 Bupropion Hcl Active 75 MG PO Daily December 29, 2021 12:00am administer 6 hours apart calcium carbonate 1250 mg / cholecalciferol 200 unt oral tablet (2 sources) Vitamin D Start: 12-21-2016 Calcium Carbonate-Vitamin D3 (Calcium 500 + D) 500 mg(1,250mg) -200 unit Tablet Active 1000 MG PO Daily December 21, 2016 12:00am docusate sodium 100 mg oral tablet (1 source) Start: 08-26-2023 take 100 mg by mouth twice daily as needed for constipation Dulcolax Stool Softener 100 mg, Oral, BID, PRN as needed for constipation, Refills(s) 0 Start Date: 08/26/23 Status: Ordered doxycycline hyclate 100 mg oral tablet (1 source) Tetracycline-class Drug Start: 08-26-2023 End: 09-02-2023 take 100 mg by mouth twice daily doxycycline 100 mg, Oral, BID, X 7 day(s), Refills(s) 0 Start Date: 08/26/23 Stop Date: 09/02/23 Status: Ordered ibuprofen 200 mg oral tablet (3 sources) Nonsteroidal Anti-inflammatory Drug Start: 08-26-2023 ibuprofen 200 mg, Oral, PRN Headache, Refills(s) 0 Start Date: 08/26/23 Status: Ordered Start: 12-21-2016 take 2 tablets by mo [facility] once daily Ibuprofen (Advil) 200 mg Tablet Active 2 TAB PO Daily December 21, 2016 12:00am Lactobacillus acidophilus (5 sources) Start: 09-10-2022 Acidophilus Se e Instructions, Refill(s) 0, 100 million every 24 hours orally Start Date: 09/10/22 Status: Ordered Start: 12-21-2016 take 1 tablet by [facility] once daily Lactobacillus Acidophilus (Acidophilus) Capsule Active 1 TAB PO Daily December 21, 2016 12:00am levothyroxine sodium 0.1 mg oral tablet (4 sources) l-Thyroxine Start: 09-10-2022 take 1 tablet by mouth once daily levothyroxine 100 mcg (0.1 mg) Tab 100 mcg = 1 tab(s), Oral, Daily, Refills(s) 0 Start Date: 09/10/22 Status: Ordered Start: 12-29-2021 take 75 ug by mouth once daily Levothyroxine Active 75 MCG PO Daily December 29, 2021 12:00am loratadine 10 mg oral tablet (3 sources) Start: 07-15-2023 take 1 tablet by mouth once daily loratadine 10 mg Tab See Instructions, TAKE 1 TABLET BY MOUTH EVERY DAY, # 90 tab(s), Refills(s) 1, Pharmacy: [id number], 176.3, cm, 09/10/22 7:16:00 EDT, Height/Length Dosing, 109.8, kg, 09/10/22 7:16:00 EDT, Weight Dosing Start Date: 07/15/23 Status: Ordered Start: 10-22-2022 take 1 tablet by cayden th once daily loratadine 10 mg Tab 10 mg = 1 tab(s), Oral, Daily, # 30 tab(s), Refills(s) 0, Pharmacy: [facility]/pharmacy #[id number], 176.3, cm, 09/10/22 7:16:00 EDT, Height/Length Dosing, 109.8, kg, 09/10/22 7:16:00 EDT, Weight Dosing Start Date: 10/22/22 Status: Ordered Multivitamin,Tx-Minerals (Multi-Vitamin Hp/Minerals) Capsule (2 sources) Start: 12-21-2016 take 1 tablet by mouth once daily Multivitamin,Tx-Minerals (Multi-Vitamin Hp/Minerals) Capsule Active 1 TAB PO Daily December 21, 2016 12:00am Psyllium (2 sources) Start: 09-10-2022 Metamucil See Instructions, 2 tablespoons orally every 24 hours, Refills(s) 0 Start Date: 09/10/22 Status: Ordered Payers Date Payer Category Payer Self-pay [id number] 1960 Unknown [id number] 2.16.84 [id number] 1960 Unknown [id number] 2.16.84 0.1.910896.3.579.2.593 1960 Unknown [id number] 2.16.84 0.1.534962.3.579.2.593 1960 Unknown [id number] 2.16.84 0.1.655547.3.579.2.593 1960 Unknown [id number] 2.16.84 0.1.860888.3.579.2.593 1960 Unknown [id number] 2.16.8 40.1.835491.3.579.2.727 1960 Unknown [id number] 2.16.8 40.1.237093.3.579.2.727 1960 Unknown [id number] 2.16.8 40.1.878017.3.579.2.727 1960 Unknown [id number] 2.16.8 40.1.440139.3.579.2.727 1960 Unknown [id number] 2.16.8 40.1.263056.3.579.2.727 1960 Unknown [id number] 2.16.8 40.1.861023.3.579.2.727 1960 Unknown [id number] 2.16.8 40.1.669186.3.579.2.727 1960 Unknown [id number] 2.16.8 40.1.193703.3.579.2.727 1960 Unknown [id number] 2.16.8 40.1.347494.3.579.2.727 1960 Unknown [id number] 2.16.8 40.1.548821.3.579.2.727 1960 Unknown [id number] 2.16.8 40.1.186813.3.579.2.531 Unknown [id number] 2.16.8 40.1.108819.3.579.2.531 Plan of Treatment Date Care Activity Detail Author Start: 12-29-2021 [facility] Patient Education Hemorrhoids Co nasra Polyps Diverticulitis [facility] Work Phone: Problems Active Problems Problem Classification Problem Date Documented Date Episodic/Chronic Biliary tract disease (1 source) Chronic cholecystitis 08-29-2023 Episodic Disorders of lipid metabolism (4 sources) Pure hypercholesterolemia, unspecified; Translations: [Dyslipidemia] Onset: 10-29-2021 09-05-2022 Chronic Noninfectious gastroenteritis (1 source) Gastroenteritis 08-29-2023 Episodic Other aftercare (1 source) Post-discharge follow-up 08-29-2023 Episodic Other and unspecified benign neoplasm (1 source) History of polyp of colon; Translations: [Personal history of colonic polyps] 12-29-2021 Episodic Other and unspecified benign neoplasm (1 source) Personal history of colonic polyps; Translations: [Personal history of colonic polyps] 12-29-2021 Episodic Other and unspecified benign neoplasm (1 source) Personal history of colonic polyps; Translations: [Personal history of colonic polyps] Onset: 12-29-2021 Episodic Other male genital disorders (3 sources) Disorder of prostate 09-05-2022 Episodic Other non-epithelial cancer of skin (3 sources) Malignant neoplasm of skin 09-05-2022 Episodic Comment on above: squamous cell face Other screening for suspected conditions (not mental disorders or infectious disease) (2 sources) Patient encounter status; Translations: [Encounter for screening for malignant neoplasm of colon] 12-21-2016 Episodic Syncope (1 source) Vasovagal syncope 08-29-2023 Episodic Thyroid disorders (11 sources) Nontoxic multinodular goiter; Translations: [Nontoxic single thyroid nodule] Onset: 04-05-2022 Chronic Unclassified (1 source) Encounter for preprocedural laboratory examination; Translations: [Encounter for preprocedural laboratory examination] Onset: 12-27-2021 Unclassified (3 sources) Pain of knee region 10-24-2022 Unclassified (4 sources) Patient encounter status 09-10-2022 Viral infection (3 sources) Herpes zoster 09-05-2022 Episodic Comment on above: 2016 Past or Other Problems Problem Classification Problem Date Documented Date Episodic/Chronic Allergic reactions (3 sources) Allergy, unspecified, initial encounter; Translations: [ALLERGY UNSPECIFIED INITIAL ENCNTR] Onset: 10-19-2021 Episodic E Codes: Adverse effects of medical drugs (1 source) Adverse effect of glucocorticoids and synthetic analogues, initial encounter; Translations: [ADVRS EFF GLUCOCORT SYN ANALOG INIT] Onset: 10-20-2021 Episodic Other aftercare (1 source) detention (current) use of aspirin; Translations: [JUNIOR DATABASE ADMINISTRATOR CURRENT USE OF ASPIRIN] Onset: 10-20-2021 Episodic Other aftercare (1 source) Other exterminator (current) drug therapy; Translations: [OTH JAIL CURRENT DRUG THERAPY] Onset: 10-20-2021 Episodic Other male genital disorders (1 source) Disorder of prostate, unspecified; Translations: [DISORDER OF PROSTATE UNSPECIFIED] Onset: 10-29-2021 Episodic Residual codes; unclassified (1 source) Edema, unspecified; Translations: [EDEMA UNSPECIFIED] Onset: 10-29-2021 Episodic Residual codes; unclassified (1 source) Flushing; Translations: [FLUSHING] Onset: 10-20-2021 Episodic Procedures Date Procedure Procedure Detail Performing Clinician Start: 12-29-2021 Colonoscopy MD Annel Null ghnolvia Work Phone: Start: 10-25-[address] ANNEL HAWKINS . Comment on above: Performed By: #### F T4, PSAD #### [facility] [address] [place] [address] Dr. Kareem Roldan Arthroscopy of knee [place] Harden oss Comment on above: left, removed torn t issue, left rethaular release patella Hordeolum externum (disorder) [place] Wren Comment on above: couple surgeries lef t eye 2 years apart Other (qualifier value) Bhavin Wren Comment on above: cadavor cruciate lig ament left knee 2020 SARS Antigen (LFIA) MD Annel Syed night Work Phone: Results Test Name Value Interpretation Reference Range Facility Ambulatory Visit Summaryon 0 08-29-2023 Ambulatory Visit Summary SOLO JIMENEZ :1960 Visit Date:08/29/2023 Ambulatory Visit Instructions Your Diagnosis Hospital discharge follow-up Gastroenteritis Chronic cholecystitis Prostate cancer screening Vasovagal episode Class 1 obesity due to excess calories in adult Nonsmoker BMI 33.0-33.9,adult Your Care Team Attending Physician - [place] Wren MD Primary Care Physician - [place] Wren MD This Is Your Medications List aspirin (aspirin 81 mg Oral EC Tab) docusate (Dulcolax Stool Softener) doxycycline ibuprofen lactobacillus acidophilus (Acidophilus) levothyroxine (levothyroxine 100 mcg (0.1 mg) Tab) loratadine (loratadine 10 mg Tab) Procedures Performed Arthroscopy of knee, Other, Stye. Discharge Vitals Temperature (Temporal Artery) 36.6 ?C Heart Rate (Peripheral) 66 Respiratory Rate 16 Blood Pressure 132/80 Height 176.3 cm Height 69 in Weight 104.0 kg Weight 228.8 lb BMI 33.46 What to do next Scheduled Follow-Up Appointments Saturday 8:15 AM EDT With: [place] Wren MD Where: [facility] [place] Normal [facility] CBC w/ Auto Diffon 4 Basophils/100 WBC (Bld) 1.4 % Normal 0.0-2.0 [facility] Comment on above: Performed By: #### 2 [id number] #### [facility] [address] [place] [address] Basophils/Leukocytes Auto (Bld) [Pure # fraction] 0.1 E9/L Normal 0.0-0.2 [facility] Comment on above: Performed By: #### 2 [id number] #### [facility] [address] [place] [address] Eosinophils (Bld) [#/Vol] 0.3 E9/L Normal 0.0-0.5 [facility] Comment on above: Performed By: #### 2 [id number] #### [facility] [address] [place] [address] Eosinophils/100 WBC (Bld) 4.7 % Normal 0.0-8.0 [facility] Comment on above: Performed By: #### 2 [id number] #### [facility] [address] [place] [address] Erythrocyte distribution width (RBC) [Ratio] 13.2 % Normal 10.9-14.2 [facility] Comment on above: Performed By: #### 2 [id number] #### [facility] [address] [place] [address] Hematocrit (Bld) [Volume fraction] 42.2 % Normal 37.7-49.0 [facility] Comment on above: Performed By: #### 2 [id number] #### [facility] [address] [place] [address] Hemoglobin (Bld) [Mass/Vol] 14.3 g/dL Normal 13.5-17.5 [facility] Comment on above: Performed By: #### 2 [id number] #### [facility] [address] [place] [address] Lymphocytes (Bld) [#/Vol] 1.9 E9/L Normal 1.0-4.0 [facility] Comment on above: Performed By: #### 2 [id number] #### [facility] [address] [place] [address] Lymphocytes/100 WBC (Bld) 31.2 % Normal 14.0-50.0 [facility] Comment on above: Performed By: #### 2 [id number] #### [facility] [address] [place] [address] MCH (RBC) [Entitic mass] 29.5 pg Normal 27.0-34.0 [facility] Comment on above: Performed By: #### 2 [id number] #### [facility] [address] [place] [address] MCHC (RBC) [Mass/Vol] 33.8 g/dL Normal 31.4-36.0 [facility] Comment on above: Performed By: #### 2 [id number] #### [facility] [address] [place] [address] MCV (RBC) [Entitic vol] 87.4 fL Normal 80.0-100.0 [facility] Comment on above: Performed By: #### 2 [id number] #### [facility] [address] [place] [address] Monocytes (Bld) [#/Vol] 0.3 E9/L Normal 0.2-1.0 [facility] Comment on above: Performed By: #### 2 [id number] #### [facility] [address] [place] [address] Neutrophils (Bld) [#/Vol] 3.6 E9/L Normal 2.0-7.5 [facility] Comment on above: Performed By: #### 2 [id number] #### [facility] [address] [place] [address] Neutrophils/100 WBC (Bld) 58.0 % Normal 36.0-75.0 [facility] Comment on above: Performed By: #### 2 [id number] #### [facility] [address] [place] [address] Platelet mean volume (Bld) [Entitic vol] 8.4 fL Normal 6.4-10.8 [facility] Comment on above: Performed By: #### 2 [id number] #### [facility] [address] [place] [address] Platelets (Bld) [#/Vol] 264.0 E9/L Normal 150.0-500.0 [facility] Comment on above: Performed By: #### 2 [id number] #### [facility] [address] [place] [address] RBC (Bld) [#/Vol] 4.8 E12/L Normal 4.3-5.9 [facility] Comment on above: Performed By: #### 2 [id number] #### [facility] [address] [place] [address] WBC corrected for nucl RBC Auto (Bld) [#/Vol] 6.1 E9/L Normal 4.0-11.0 [facility] Comment on above: Performed By: #### 2 [id number] #### [facility] [address] [id number] CHEMISTRYOrdered By: SYSTEM SYSTEM on 08-29-2023 Albumin [Mass/Vol] 3.9 g/dL Normal 3.3 - 5.0 gm/dL [facility] Albumin/Globulin [Mass ratio] 1.6 {ratio} Normal 1.1 - 2.2 [facility] ALP [Catalytic activity/Vol] 64 [iU]/d Normal 21 - 98 Int._Unit/L [facility] ALT No additional P-5'-P [Catalytic activity/Vol] 31 [iU]/d Normal 6 - 46 Int._Unit/L [facility] Anion gap [Moles/Vol] 11 mmol/L Normal 6 - 16 mEq/L R emisol Chem AST [Catalytic activity/Vol] 18 [iU]/d Normal 5 - 43 Int._Unit/L [facility] Bilirubin [Mass/Vol] 0.8 mg/dL Normal 0.0 - 1 .1 mg/dL [facility] Calcium [Mass/Vol] 8.7 mg/dL Low 8.9 - 11. 1 mg/dL [facility] Chloride [Moles/Vol] 106 mmol/L Normal 101 - 1 11 mmol/L [facility] CO2 [Moles/Vol] 25 mmol/L Normal 21 - 31 mmol/L [facility] Creatinine [Mass/Vol] 0.9 mg/dL Normal 0.5 - 1.3 mg/dL [facility] eGFR 95 mL/min/1.73 m2 Normal >=59mL/min /1 .73 m2 [facility] Globulin (S) [Mass/Vol] 2.5 g/dL Normal 1.4 - 4.0 gm/dL [facility] Glucose [Mass/Vol] 140 mg/dL Normal 55 - 199 mg/dL [facility] Potassium [Moles/Vol] 4.4 mmol/L Normal 3.5 - 5.3 mmol/L [facility] Prostate specific Ag [Mass/Vol] 0.8 ng/mL Normal 0.1 - 3.5 ng/mL [facility] Comment on above: Interpretive Data: T he concentration of PSA determined by different manufacturers can vary due to differences in assay methods and reagent specificity. Values obtained from different assay methods cannot be used interchangeably. The methodology used for this result was chemiluminescence using [employer]'s Access [employer]brite[employer] PSA reagent. Protein [Mass/Vol] 6.4 g/dL Normal 6.0 - 7.8 gm/dL [facility] Sodium [Moles/Vol] 138 mmol/L Normal 135 - 145 mmol/L [facility] TSH Qn 1.06 m[IU]/L Normal 0.34 - 5.60 mcIU/mL [facility] Urea nitrogen [Mass/Vol] 18 mg/dL Normal 5 - 21 mg/dL [facility] Urea nitrogen/Creatinine [Mass ratio] 20 mg/mg Normal 10 - 20 [facility] CMPon 08-29-2023 Albumin [Mass/Vol] 3.9 g/dL Normal 3.3-5.0 [facility] Comment on above: Performed By: #### 2 [id number] #### [facility] [address] [place] [address] Albumin/Globulin (S) [Mass conc ratio] 1.6 Normal 1.1-2.2 [facility] Comment on above: Performed By: #### 2 [id number] #### [facility] [address] [place] [address] ALP [Catalytic activity/Vol] 64 Int._Unit/L Normal 21-98 [facility] Comment on above: Performed By: #### 2 [id number] #### [facility] [address] [place] [address] ALT No additional P-5'-P [Catalytic activity/Vol] 31 Int._Unit/L Normal 6-46 [facility] Comment on above: Performed By: #### 2 [id number] #### [facility] [address] [place] [address] Anion gap [Moles/Vol] 11 mmol/L Normal 6-16 [facility] Comment on above: Performed By: #### 2 [id number] #### [facility] [address] [place] [address] AST [Catalytic activity/Vol] 18 Int._Unit/L Normal 5-43 [facility] Comment on above: Performed By: #### 2 [id number] #### [facility] [address] [place] [address] Bilirubin [Mass/Vol] 0.8 mg/dL Normal 0.0-1.1 [facility] Comment on above: Performed By: #### 2 [id number] #### [facility] [address] [place] [address] Calcium [Mass/Vol] 8.7 mg/dL Low 8.9-11.1 [facility] Comment on above: Performed By: #### 2 [id number] #### [facility] [address] [place] [address] Chloride [Moles/Vol] 106 mmol/L Normal 101-111 [facility] Comment on above: Performed By: #### 2 [id number] #### [facility] [address] [place] [address] CO2 [Moles/Vol] 25 mmol/L Normal 21-31 [facility] Comment on above: Performed By: #### 2 [id number] #### [facility] [address] [place] [address] Creatinine [Mass/Vol] 0.9 mg/dL Normal 0.5-1.3 [facility] Comment on above: Performed By: #### 2 [id number] #### [facility] [address] [place] [address] Globulin (S) [Mass/Vol] 2.5 g/dL Normal 1.4-4.0 [facility] Comment on above: Performed By: #### 2 [id number] #### [facility] [address] [place] [address] Glucose [Mass/Vol] 140 mg/dL Normal 55-199 [facility] Comment on above: Performed By: #### 2 [id number] #### [facility] [address] [place] [address] Potassium [Moles/Vol] 4.4 mmol/L Normal 3.5-5.3 [facility] Comment on above: Performed By: #### 2 [id number] #### [facility] [address] [place] [address] Protein [Mass/Vol] 6.4 g/dL Normal 6.0-7.8 [facility] Comment on above: Performed By: #### 2 [id number] #### [facility] [address] [place] [address] Sodium [Moles/Vol] 138 mmol/L Normal 135-145 [facility] Comment on above: Performed By: #### 2 [id number] #### [facility] [address] [place] [address] Urea nitrogen [Mass/Vol] 18 mg/dL Normal 5-21 [facility] Comment on above: Performed By: #### 2 [id number] #### [facility] [address] [place] [address] Urea nitrogen/Creatinine [Mass ratio] 20 No Units Normal 10-20 [facility] Comment on above: Performed By: #### 2 [id number] #### [facility] [address] [place] [address] Family Medicine Office/Clini c Noteon 08-29-2023 Family Medicine Office/Clinic Note HPI Staff Solo is a 63 year old male presenting for hospital follow up Hospital: [facility] Admission date: Discharge date: 08/23/23 Symptoms the patient presented with: chills, nausea To follow up with surgeon re possible chronic cholecystitis which they did not discuss with him at discharge Current concerns: 1. would like a PSA done at some point 2.Discuss his liver and kidney test results from his hospital stay 3. his dad had vasovagal symptoms at this age he's now at and he ? maybe he experienced that saturday 4. wants to ask about shingles and pneumonia vaccines last dose of doxycycline saturday morning, he stopped it due to symptoms, right now just fatigued History of Present Illness - See staff HPI. - Improving. - Feeling better. Review of Systems PHQ Score Initial Depression Screen Score: 0 SCORE Physical Exam Vitals & Measurements T: 36.6 ?C(Temporal Artery) HR: 66(Peripheral) RR: 16 BP: 132/80 SpO2: 98% HT: 69 in HT: 176.3 cm WT: 104.0 kg WT: 228.8 lb BMI: 33.46 General: alert, no acute distress ENMT: oral mucosa moist, Cardiovascular: regular rate and rhythm, normal peripheral perfusion Respiratory: Lungs CTA, respirations non labored Extremities: no deformity, no trauma Neurological: oriented x 4, LOC appropriate for age, CN II-XII intact, motor strength equal & normal bilaterally, speech normal Abdomen: Soft, Nontender, Non-distended, + BS Assessment/Plan 1. Hospital discharge follow-up (Z09: Encounter for follow-up examination after completed treatment for conditions other than malignant neoplasm) - Reviewed D/C summary - Med Reconciliation - Follow up with Surgery recommended Ordered: CBC w/ Auto Diff Comprehensive Metabolic Panel [facility] [place] PSA Screen, Total TSH With T4fr Reflex 2. Gastroenteritis (K52.9: Noninfective gastroenteritis and colitis, unspecified) - Resolved Ordered: CBC w/ Auto Diff Comprehensive Metabolic Panel [facility] [place] Referral PSA Screen, Total TSH With T4fr Reflex 3. Chronic cholecystitis (K81.1: Chronic cholecystitis) - Will request US - No issues at this time. - Will refer to Ordered: CBC w/ Auto Diff Comprehensive Metabolic Panel [facility] [place] Referral PSA Screen, Total TSH With T4fr Reflex 4. Prostate cancer screening (Z12.5: Encounter for screening for malignant neoplasm of prostate) - Will screen today Ordered: CBC w/ Auto Diff Comprehensive Metabolic Panel [facility] [place] Referral PSA Screen, Total TSH With T4fr Reflex 5. Vasovagal episode (R55: Syncope and collapse) - Continue to hydrate - Monitor for arrythmias Ordered: CBC w/ Auto Diff Comprehensive Metabolic Panel [facility] [place] Referral PSA Screen, Total TSH With T4fr Reflex 6. Class 1 obesity due to excess calories in adult (E66.09: Other obesity due to excess calories) - Diet and exercise advised Ordered: CBC w/ Auto Diff Comprehensive Metabolic Panel PSA Screen, Total TSH With T4fr Reflex 7. Nonsmoker (Z78.9: Other specified health status) - Please continue to not smoke Ordered: CBC w/ Auto Diff Comprehensive Metabolic Panel PSA Screen, Total TSH With T4fr Reflex 8. BMI 33.0-33.9,adult (Z68.33: Body mass index [BMI] 33.0-33.9, adult) - BMI education given Ordered: CBC w/ Auto Diff Comprehensive Metabolic Panel PSA Screen, Total TSH With T4fr Reflex Follow-up No qualifying data available Problem List/Past Medical History Ongoing Chronic cholecystitis Chronic pain of right knee Disorder of prostate Dyslipidemia Gastroenteritis Hospital discharge follow-up Multinodular goiter Physical exam Prostate cancer screening Shingles Skin cancer Vasovagal episode Historical No qualifying data Procedure/Surgical History Arthroscopy of knee, Other, Stye. Medications Acidophilus, See Instructions aspirin 81 mg Oral EC Tab, 81 mg= 1 tab(s), Oral, Daily doxycycline, 100 mg, Oral, BID, Not taking Dulcolax Stool Softener, 100 mg, Oral, BID, PRN, Not taking ibuprofen, 200 mg, Oral, PRN levothyroxine 100 mcg (0.1 mg) Tab, 100 mcg= 1 tab(s), Oral, Daily loratadine 10 mg Tab, See Instructions Allergies methylPREDNISolone (Unknown) predniSONE (Unknown) Bee Stings (Unknown) Social History Tobacco Never (less than 100 in lifetime) Tobacco Use:. Never Smokeless Tobacco Use:., 08/29/2023 Family History Cardiac arrhythmia: Mother. Diabetes mellitus type 2: Father. Hypertension: Mother. Immunizations Vaccine Date Status Comments SARSCoV2 mRNA(kwame faith) vac 09/26/2021 Recorded influenza virus vaccine, inactivated 01/26/2021 Recorded SARS-CoV-2 (COVID-19) mRNA BNT-162b2 vax 01/26/2021 Recorded 2022-09-10: TPV60 diphtheria/pertussis, acel/tetanus adult 09/16/2020 Recorded SARS-CoV-2 (COVID-19) mRNA BNT-162b2 vax 06/28/2020 Recorded SARS-CoV-2 (COVID-19) mR (more content not included)... Normal [facility] Comment on above: Result Comment: Elec tronically Signed By: Holger PATRICIA, Chico Pereyra\.br\Date and Time Signed: 08/29/23 08:08 EDT HEMATOLOGYOrdered By: SYSTEM SYSTEM on 08-29-2023 Basophils/100 WBC (Bld) 1.4 % Normal 0.0 - 2.0 % [facility]e Basophils/Leukocytes Auto (Bld) [Pure # fraction] 0.1 E9/L Normal 0.0 - 0.2 E9/L [facility] Eosinophils (Bld) [#/Vol] 0.3 E9/L Normal 0.0 - 0.5 E9/L [facility] Eosinophils/100 WBC (Bld) 4.7 % Normal 0.0 - 8.0 % [facility] Erythrocyte distribution width (RBC) [Ratio] 13.2 % Normal 10.9 - 14.2 % [facility] Hematocrit (Bld) [Volume fraction] 42.2 % Normal 37.7 - 49.0 % [facility] Hemoglobin (Bld) [Mass/Vol] 14.3 g/dL Normal 13.5 - 17.5 gm/dL [facility] Lymphocytes (Bld) [#/Vol] 1.9 E9/L Normal 1.0 - 4.0 E9/L [facility] Lymphocytes/100 WBC (Bld) 31.2 % Normal 14.0 - 50.0 % [facility] MCH (RBC) [Entitic mass] 29.5 pg Normal 27.0 - 34.0 pg [facility]e MCHC (RBC) [Mass/Vol] 33.8 g/dL Normal 31.4 - 36.0 gm/dL [facility] MCV (RBC) [Entitic vol] 87.4 fL Normal 80.0 - 100.0 fL [facility] Monocytes (Bld) [#/Vol] 0.3 E9/L Normal 0.2 - 1.0 E9/L [facility] Monocytes/100 WBC (Bld) 4.7 % Normal 4.0 - 14.0 % [facility] Neutrophils (Bld) [#/Vol] 3.6 E9/L Normal 2.0 - 7.5 E9/L [facility] Neutrophils/100 WBC (Bld) 58.0 % Normal 36.0 - 75.0 % [facility] Platelet mean volume (Bld) [Entitic vol] 8.4 fL Normal 6.4 - 10.8 fL [facility] Platelets (Bld) [#/Vol] 264.0 E9/L Normal 150.0 - 500.0 E9/L [facility] RBC (Bld) [#/Vol] 4.8 E12/L Normal 4.3 - 5.9 E12/L [facility] WBC corrected for nucl RBC Auto (Bld) [#/Vol] 6.1 E9/L Normal 4.0 - 11.0 E9/L [facility] PSA Screen, Totalon 08-29-19 Prostate specific Ag [Mass/Vol] 0.8 ng/mL Normal 0.1-3.5 [facility] Comment on above: Result Comment: The concentration of PSA determined by different manufacturers can vary due to differences in assay methods and reagent specificity. Values obtained from different assay methods cannot be used interchangeably. The methodology used for this result was chemiluminescence using [employer] PSA reagent. Performed By: #### 1 [id number] #### [facility] [address] [place] [address] TSH With T4fr Reflexon 08-28 TSH Qn 1.06 m[IU]/L Normal 0.34-5.60 [facility] Comment on above: Performed By: #### 1 [id number] #### [facility] [address] [place] [address] eGFRon 08-29-2023 eGFR 95 mL/min/1.73 m2 Normal >=59 [facility] Comment on above: Order Comment: Order added by Discern Expert. Performed By: #### 1 [id number] #### [facility] [address] [place] [address] ECG 12-Leadon 08-26-2023 ECG 12-Lead [id number]#1. 00TIFF Normal [facility] Population Healthon 08-26-19 24 Population Health Case Information Case Priority: None Programs: -- Referral Source: Full Stack Software Engineer Referral Reason: Care coordination Case Type: Transition Care Management Risk Score: -- Case Status: Enrolled (August 26, 2023) Date Assigned: August 26, 2023 Assigned By: Justo Herndon Date Enrolled: August 26, 2023 Assigned Primary Personnel: Justo Herndon Assigned Secondary Personnel: -- Case Physician: Chico Wren MD Ongoing Chronic pain of right knee Disorder of prostate Dyslipidemia Multinodular goiter Physical exam Shingles Skin cancer Historical No qualifying data Procedure/Surgical History Arthroscopy of knee, Other, Stye. Home Medications Acidophilus, See Instructions aspirin 81 mg Oral EC Tab, 81 mg= 1 tab(s), Oral, Daily levothyroxine 100 mcg (0.1 mg) Tab, 100 mcg= 1 tab(s), Oral, Daily loratadine 10 mg Tab, See Instructions Metamucil, See Instructions Allergies methylPREDNISolone (Unknown) predniSONE (Unknown) Bee Stings (Unknown) Social History Tobacco Never (less than 100 in lifetime) Tobacco Use:. Never Smokeless Tobacco Use:., 09/10/2022 Family History Cardiac arrhythmia: Mother. Diabetes mellitus type 2: Father. Hypertension: Mother. Screenings and Assessments 08/26/23 11:29:00 Result Name Value Comment Phone Call Monitoring Consent Agreed to continue call Phone Verification Patient Information Full name, street address and date of verified CM Program Enrollment Provides verbal consent for enrollment Goals and Interventions Care Plan Progress Note Admit Date: 08/22/23 [facility] Date of Discharge: 08/23/23 Follow-up appointment scheduled? yes, TCM follow up with PCP 08/29/23 at 0745 Did you understand your discharge instructions? General surgery follow up needed? US results? Are you able to follow them? yes Did you receive new medications? yes; doxycycline 100 mg BID x 7 days Have you filled the Rx's? yes Are you taking them as prescribed? yes Are you having difficulty eating or swallowing your pills? no Are you having any stomach upset, diarrhea or constipation? constipation How are you sleeping? 'pretty well' Are you having any pain? BECKER's 'respond well to ibuprofen' Do you have everything you need at home to care for yourself? yes Do you have Home Health? no Spoke with patient for initial Transitional Care Management Program call. Readmission risk unavailable. Reviewed discharge instructions and dx of: SIRS, nausea, chills, lactic acid, hypothyroidism, chronic cholecystitis without calculus, blood bacterial culture positive (staph). Blood culture result pending per patient. Medications reconciled with patient, EHR, and d/c summary. Reviewed purpose and side effects of new medications with patient. Patient states he is 'feeling better.' Reports he does still have some severe headaches that respond well to ibuprofen. Notes he is a little tired and took today off to get a little more rest. Patient adds it has never taken him this long to 'come back' from something. Patient is eating well and drinking, good hydration encouraged. Patient reports he has a bit of constipation, relieved with stool softener. CN discussed fiber food choices and again good hydration. Reviewed the following appointments with patient: TCM follow up with PCP 08/29/23 at 0745. Per d/c patient to follow up with GS. Patient does not recall this, will discuss with PCP to see if necessary. Patient denies any further questions or concerns. CN explained TCM program and gave CN contact number. Communication Events Date: August 26, 2023 Method: Phone call Type: Inbound Duration (min): 8 Outcome: Case discussion Contact Type: Patient Contact Name: SOLO JIMENEZ Notes: TCM#1-see tcm note. Created By: Justo Herndon Date: August 26, 2023 Method: Phone call Type: Outbound Duration (min): 1 Outcome: Left message-voicemail Contact Type: online program coordinator Contact Name: Justo Herndon Notes: TCM#1- left vm for return call. Created By: Justo Herndon [facility] RAD - Ultrasound Reporton RAD - Ultrasound Report [id number]#1. 00TIFF [facility] ED Note-Physicianon 08-22-19 24 ED Note-Physician [id number]#1. 00TIFF [facility] RAD - MISCon 08-22-2023 RAD - MISC [id number]#1 .00TI[address] [facility] Consultation Noteon 01-25-20 23 Consultation Note [id number]#1. 00TIFF [facility] MRI Knee w/o Contrast Righto n 01-03-2023 MRI Knee w/o Contrast Right Exam Date/Time: 01/02/2023 14:36 EDT Reason for Exam: INTERNAL DERANGEMENT OF RIGHT KNEE Report IMPRESSION: Medial and lateral meniscal findings as discussed which may represent nondisplaced tears versus degenerative signal. Mucoid degeneration versus high-grade sprain and/or partial tear involving ACL. High-grade sprain of PCL, without distinct tear. Osteoarthritis as discussed. EXAMINATION: MRI Knee w/o Contrast Right HISTORY: INTERNAL DERANGEMENT OF RIGHT KNEE right knee pain for 3 months. Injury while running stepping in a hole. TECHNIQUE: Routine non-contrast MRI of the knee RIGHT COMPARISON: Radiographs 10/31/2022. RESULT: MENISCI: Medial Meniscus: Areas of increased signal involving the posterior horn and body, possible nondisplaced tear versus degenerative signal. Lateral Meniscus: Areas of increased intrameniscal signal especially in the posterior horn and body, which may be degenerative versus subtle nondisplaced tear. LIGAMENTS: Diffusely increased signal and thickening involving the ACL which could relate to mucoid degeneration or high-grade sprain and/or partial tear. Thickening and increased signal involving PCL suggestive of high-grade sprain, without distinct tear. MCL and LCL complex appear intact. CARTILAGE: Moderate areas of full-thickness chondral loss within the lateral compartment. Small areas of mostly low-grade partial-thickness chondral loss/fissuring in the medial and lateral compartments. Small osteophytes. TENDONS: Distal quadriceps intact. Patellar tendon intact. Popliteus intact. BONES AND MARROW: No evidence for fracture or suspicious marrow replacing process. Subchondral cystic change at the ACL insertion. 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 MUSCLES: Muscle bulk and signal intensity are normal. JOINT FLUID AND SYNOVIUM: Small joint effusion. No synovitis. Small Cartagena's cyst. OTHER: No other significant abnormality. Report Ordering Provider: , FINAL REPORT Dictated: 01/03/2023 2:14 pm Warren Herndon MD Signed (Electronic Signature): 01/03/2023 2:14 pm Signed by: Warren Herndon MD Transcribed by: DAYANNA Technologist: HYUN Technical Comments None Normal [facility] Consent for Treatmenton 12-23 Consent for Treatment [id number]#1 .00TIFF Normal [facility] RAD - MRI Screening Formon 1 RAD - MRI Screening Form [id number]# 1.00TIFF Normal [facility] Physician Orderon 12-21-2022 Physician Order [id number]#1 .00CD:127 Normal [facility] Consultation Noteon 12-06-19 Consultation Note [id number]#1. 00CD:127 Normal [facility] Discharge Note - PTon 2022 Discharge Note - PT [id number]#1. 00CD:127 Normal [facility] Physician Referralon 023 Physician Referral [id number]# 1.00CD:127 Normal [facility] Insurance Correspondenceon 0 11-13-2022 Insurance Correspondence [id number]# 1.00CD:127 Normal [facility] Auto Diffon 11-06-2022 Basophils/100 WBC (Bld) 0.9 % Normal 0.0-2.0 [facility] Comment on above: Order Comment: Order Added by Discern Expert. Performed By: #### 2 317320, 66741399, 0632724, 3091894, 12885027, 3853746, 54069176 ####[facility] [address] [place] [address] Basophils/Leukocytes Auto (Bld) [Pure # fraction] 0.0 E9/L Normal 0.0-0.2 [facility] Comment on above: Order Comment: Order Added by Discern Expert. Performed By: #### 2 441390, 56652171, 6885573, 5846500, 45550274, 3788065, 41908208 ####[facility] [address] [place] [address] Eosinophils/100 WBC (Bld) 6.4 % Normal 0.0-8.0 [facility] Comment on above: Order Comment: Order Added by Discern Expert. Performed By: #### 2 268300, 72372186, 6308728, 0861800, 52370683, 2747928, 42601920 ####[address] [place] [address] Eosinophils/Leukocytes Auto (Bld) [Pure # fraction] 0.3 E9/L Normal 0.0-0.5 [facility] Comment on above: Order Comment: Order Added by Discern Expert. Performed By: #### 2 396916, 23768128, 2014205, 5053010, 97146454, 0196828, 45721763 ####[address] [place] [address] Lymphocytes/100 WBC (Bld) 29.6 % Normal 14.0-50.0 [facility] Comment on above: Order Comment: Order Added by Discern Expert. Performed By: #### 2 981760, 30067649, 2673733, 7070657, 76336484, 7282430, 88175226 ####[address] [address] Lymphocytes/Leukocytes Auto (Bld) [Pure # fraction] 1.6 E9/L Normal 1.0-4.0 [facility] Comment on above: Order Comment: Order Added by Discern Expert. Performed By: #### 2 896897, 75298658, 0627416, 0826560, 94553022, 3801653, 86140722 ####[address] [place] [address] Monocytes/100 WBC (Bld) 8.2 % Normal 4.0-14.0 [facility] Comment on above: Order Comment: Order Added by Discern Expert. Performed By: #### 2 050741, 71163009, 6646808, 9233670, 87051302, 6682332, 59332298 ####[address] [place] [address] Monocytes/Leukocytes Auto (Bld) [Pure # fraction] 0.4 E9/L Normal 0.2-1.0 [facility] Comment on above: Order Comment: Order Added by Discern Expert. Performed By: #### 2 153974, 71328535, 9638251, 6341715, 52627132, 7519806, 42395939 ####[facility] [address] [place] [address] Neutrophils/100 WBC (Bld) 54.9 % Normal 36.0-75.0 [facility] Comment on above: Order Comment: Order Added by Discern Expert. Performed By: #### 2 553383, 91186211, 3488802, 4333493, 89864121, 9022800, 97587115 ####[facility] [address] [place] [address] Neutrophils/Leukocytes Auto (Bld) [Pure # fraction] 3.0 E9/L Normal 2.0-7.5 [facility] Comment on above: Order Comment: Order Added by Discern Expert. Performed By: #### 2 835942, 39307010, 8295922, 3872819, 47552624, 8354265, 99647050 ####[address] [place] [address] CBC w/ Auto Diffon 3 Erythrocyte distribution width (RBC) [Ratio] 13.4 % Normal 10.9-14.2 [facility] Comment on above: Performed By: #### 2 040620, 99364500, 1345170, 2639716, 93517932, 1452562, 72684257 ####[address] [place] [address] Hematocrit (Bld) [Volume fraction] 44.0 % Normal 37.7-49.0 [facility] Comment on above: Performed By: #### 2 071403, 84381089, 1112003, 5602338, 40399816, 8442576, 30274398 ####[facility] [address] [place] [address] Hemoglobin (Bld) [Mass/Vol] 14.8 g/dL Normal 13.5-17.5 [facility] Comment on above: Performed By: #### 2 646298, 81508332, 2036428, 3045826, 40980213, 6844855, 06732739 ####[address] [place] [address] MCH (RBC) [Entitic mass] 29.5 pg Normal 27.0-34.0 [facility] Comment on above: Performed By: #### 2 098679, 75031002, 2207713, 6887382, 07957553, 4262074, 48407226 ####[address] [address] MCHC (RBC) [Mass/Vol] 33.7 g/dL Normal 31.4-36.0 [facility] Comment on above: Performed By: #### 2 508434, 91576474, 6824573, 2376349, 84255448, 4322662, 19036354 ####[address] [address] MCV (RBC) [Entitic vol] 87.7 fL Normal 80.0-100.0 [facility] Comment on above: Performed By: #### 2 093183, 66177597, 8244679, 5525566, 58045478, 4587385, 72877954 ####[address] [address] Platelet mean volume (Bld) [Entitic vol] 9.1 fL Normal 6.4-10.8 [facility] Comment on above: Performed By: #### 2 772454, 31910532, 9169576, 7013890, 03282726, 0810671, 01675620 ####[address] [address] Platelets (Bld) [#/Vol] 232.0 E9/L Normal 150.0-500.0 [facility] Comment on above: Performed By: #### 2 144688, 36006252, 0074854, 5813292, 90005233, 8910999, 98758788 ####[address] [place] [address] RBC (Bld) [#/Vol] 5.0 E12/L Normal 4.3-5.9 [facility] Comment on above: Performed By: #### 2 548427, 83701423, 9436481, 1182881, 90963550, 6138049, 51492083 ####[facility] [address] [place] [address] WBC corrected for nucl RBC Auto (Bld) [#/Vol] 5.5 E9/L Normal 4.0-11.0 [facility] Comment on above: Performed By: #### 2 334676, 96798479, 9428117, 6989599, 39271589, 2997005, 20126017 ####[facility] [address] [place] [address] CHEMISTRYOrdered By: SYSTEM SYSTEM on 11-06-2022 Albumin [Mass/Vol] 4.1 g/dL Normal 3.3 - 5.0 gm/dL [facility] Albumin/Globulin [Mass ratio] 1.5 {ratio} Normal 1.1 - 2.2 [facility] ALP [Catalytic activity/Vol] 58 [iU]/d Normal 21 - 98 Int._Unit/L [facility] ALT No additional P-5'-P [Catalytic activity/Vol] 36 [iU]/d Normal 6 - 46 Int._Unit/L [facility] Anion gap [Moles/Vol] 12 mmol/L Normal 6 - 16 mEq/L F [facility] AST [Catalytic activity/Vol] 24 [iU]/d Normal 5 - 43 Int._Unit/L [facility] Bilirubin [Mass/Vol] 1.1 mg/dL Normal 0.0 - 1 .1 mg/dL [facility] Calcium [Mass/Vol] 9.3 mg/dL Normal 8.9 - 11. 1 mg/dL [facility] Chloride [Moles/Vol] 109 mmol/L Normal 101 - 1 11 mmol/L [facility] Cholesterol [Mass/Vol] 207 mg/dL High 120 - 200 mg/dL [facility] Cholesterol in HDL [Mass/Vol] 45 mg/dL Invalid Interpretation Code [facility] Cholesterol in LDL [Mass/Vol] 135 mg/dL High <=129mg/dL [facility] Cholesterol in VLDL [Mass/Vol] 22 mg/dL Normal 7 - 40 mg/dL [facility] CO2 [Moles/Vol] 23 mmol/L Normal 21 - 31 mmol/L [facility] Creatinine [Mass/Vol] 1.0 mg/dL Normal 0.5 - 1.3 mg/dL [facility] GFR/1.73 sq M.predicted among non-blacks MDRD (S/P/Bld) [Vol rate/Area] 85 mL/min/1.73 m2 Normal >=59mL/min/1 .73 m2 FT Chem S Globulin (S) [Mass/Vol] 2.8 g/dL Normal 1.4 - 4.0 gm/dL [facility] Glucose [Mass/Vol] 100 mg/dL Normal 55 - 199 mg/dL [facility] Potassium [Moles/Vol] 4.4 mmol/L Normal 3.5 - 5.3 mmol/L [facility] Prostate specific Ag [Mass/Vol] 0.6 ng/mL Normal 0.1 - 3.5 ng/mL [facility] Protein [Mass/Vol] 6.9 g/dL Normal 6.0 - 7.8 gm/dL [facility] Sodium [Moles/Vol] 140 mmol/L Normal 135 - 145 mmol/L [facility] Triglyceride [Mass/Vol] 108 mg/dL Normal <=149mg/dL [facility] TSH Qn 0.66 m[IU]/L Normal 0.34 - 5.60 mcIU/mL [facility] Urea nitrogen [Mass/Vol] 17 mg/dL Normal 5 - 21 mg/dL [facility] Urea nitrogen/Creatinine [Mass ratio] 17 mg/mg Normal 10 - 20 [facility] CMPon 11-06-2022 Albumin [Mass/Vol] 4.1 g/dL Normal 3.3-5.0 [facility] Comment on above: Performed By: #### 2 992146, 88420097, 1595169, 4880313, 52024782, 4022214, 51090346 ####[facility] [address] [place] [address] Albumin/Globulin (S) [Mass conc ratio] 1.5 Normal 1.1-2.2 [facility] Comment on above: Performed By: #### 2 854695, 93148981, 3712878, 1650295, 78792045, 3733873, 55710864 ####[facility] [address] [place] [address] ALP [Catalytic activity/Vol] 58 Int._Unit/L Normal 21-98 [facility] Comment on above: Performed By: #### 2 402519, 98591457, 4932846, 0355988, 01104871, 5972040, 19832818 ####[facility] [address] [place] [address] ALT No additional P-5'-P [Catalytic activity/Vol] 36 Int._Unit/L Normal 6-46 [facility] System Comment on above: Performed By: #### 2 495540, [id number], 6760664, 3801921, 18706200, 1060231, 05641532 ####[facility] [address] [place] [address] Anion gap [Moles/Vol] 12 mmol/L Normal 6-16 [facility] Comment on above: Performed By: #### 2 689881, 04629579, 5108846, 5087640, 72907259, 0658594, 23591205 ####[facility] [address] [place] [address] AST [Catalytic activity/Vol] 24 Int._Unit/L Normal 5-43 [facility] Comment on above: Performed By: #### 2 006085, 27687059, 0166832, 6923708, 99490213, 3997879, 54289648 ####[facility] [address] [place] [address] Bilirubin [Mass/Vol] 1.1 mg/dL Normal 0.0-1.1 [facility] Comment on above: Performed By: #### 2 113010, 32656618, 0994314, 6246087, 10829000, 2481520, 82538235 ####[facility] [address] [place] [address] Calcium [Mass/Vol] 9.3 mg/dL Normal 8.9-11.1 [facility] Comment on above: Performed By: #### 2 606395, 03940581, 8294090, 1343904, 83140467, 8280423, 83097927 ####[facility] [address] [place] [address] Chloride [Moles/Vol] 109 mmol/L Normal 101-111 [facility] Comment on above: Performed By: #### 2 996798, 16884774, 2544156, 8455827, 56456013, 8415151, 02320116 ####[address] [place] [address] CO2 [Moles/Vol] 23 mmol/L Normal 21-31 [facility] Comment on above: Performed By: #### 2 358844, 96720698, 7874477, 0604136, 64368239, 6755072, 07806596 ####[facility] [address] [place] [address] Creatinine [Mass/Vol] 1.0 mg/dL Normal 0.5-1.3 [facility] Comment on above: Performed By: #### 2 477038, 11973380, 7403824, 0343492, 85339222, 4197837, 64879205 ####[facility] [address] [place] [address] Globulin (S) [Mass/Vol] 2.8 g/dL Normal 1.4-4.0 [facility] Comment on above: Performed By: #### 2 076008, 24575565, 9152823, 5576072, 91824531, 5896953, 12344886 ####[address] [place] [address] Glucose [Mass/Vol] 100 mg/dL Normal 55-199 [facility] Comment on above: Result Comment: If t his glucose result represents a fasting glucose, interpretation should refer to the following reference range: 55-99 mg/dL Performed By: #### 2 532206, 88136348, 3198828, 1438150, 80356481, 2281733, 03570254 ####[facility] [address] [place] [address] Potassium [Moles/Vol] 4.4 mmol/L Normal 3.5-5.3 [facility] Comment on above: Performed By: #### 2 658648, 24867074, 5394653, 3559066, 06853159, 0909185, 94978031 ####[facility] [address] [place] [address] Protein [Mass/Vol] 6.9 g/dL Normal 6.0-7.8 [facility] Comment on above: Performed By: #### 2 134918, 07625510, 6666503, 4850225, 01256348, 0918061, 52405290 ####[facility] [address] [place] [address] Sodium [Moles/Vol] 140 mmol/L Normal 135-145 [facility] Comment on above: Performed By: #### 2 058023, 66122296, 6301574, 6211436, 33925151, 0758428, 71093726 ####[facility] [address] [place] [address] Urea nitrogen [Mass/Vol] 17 mg/dL Normal 5-21 [facility] Comment on above: Performed By: #### 2 712081, 42552455, 0600091, 3372643, 12148593, 1483428, 18076731 ####[facility] [address] [place] [address] Urea nitrogen/Creatinine [Mass ratio] 17 No Units Normal 10-20 [facility] Comment on above: Performed By: #### 2 224344, 61492840, 8908361, 1623300, 22815527, 0853407, 87851147 ####[facility] [address] [place] [address] HEMATOLOGYOrdered By: SYSTEM SYSTEM on 11-06-2022 Basophils/100 WBC (Bld) 0.9 % Normal 0.0 - 2.0 % [facility] Basophils/Leukocytes Auto (Bld) [Pure # fraction] 0.0 E9/L Normal 0.0 - 0.2 E9/L [facility] Eosinophils/100 WBC (Bld) 6.4 % Normal 0.0 - 8.0 % [facility] Eosinophils/Leukocytes Auto (Bld) [Pure # fraction] 0.3 E9/L Normal 0.0 - 0.5 E9/L [facility] Lymphocytes/100 WBC (Bld) 29.6 % Normal 14.0 - 50.0 % [facility] Lymphocytes/Leukocytes Auto (Bld) [Pure # fraction] 1.6 E9/L Normal 1.0 - 4.0 E9/L [facility] Monocytes/100 WBC (Bld) 8.2 % Normal 4.0 - 14.0 % [facility] Monocytes/Leukocytes Auto (Bld) [Pure # fraction] 0.4 E9/L Normal 0.2 - 1.0 E9/L [facility] Neutrophils/100 WBC (Bld) 54.9 % Normal 36.0 - 75.0 % [facility] Neutrophils/Leukocytes Auto (Bld) [Pure # fraction] 3.0 E9/L Normal 2.0 - 7.5 E9/L [facility] HEMATOLOGYOrdered By: Gordy Witt on 11-06-2022 Erythrocyte distribution width (RBC) [Ratio] 13.4 % Normal 10.9 - 14.2 % [facility] Hematocrit (Bld) [Volume fraction] 44.0 % Normal 37.7 - 49.0 % [facility] Hemoglobin (Bld) [Mass/Vol] 14.8 g/dL Normal 13.5 - 17.5 gm/dL [facility] MCH (RBC) [Entitic mass] 29.5 pg Normal 27.0 - 34.0 pg [facility] MCHC (RBC) [Mass/Vol] 33.7 g/dL Normal 31.4 - 36.0 gm/dL [facility] MCV (RBC) [Entitic vol] 87.7 fL Normal 80.0 - 100.0 fL [facility] Platelet mean volume (Bld) [Entitic vol] 9.1 fL Normal 6.4 - 10.8 fL [facility] Platelets (Bld) [#/Vol] 232.0 E9/L Normal 150.0 - 500.0 E9/L [facility] RBC (Bld) [#/Vol] 5.0 E12/L Normal 4.3 - 5.9 E12/L [facility] WBC corrected for nucl RBC Auto (Bld) [#/Vol] 5.5 E9/L Normal 4.0 - 11.0 E9/L [facility] Lipid Panelon 11-06-2022 Cholesterol [Mass/Vol] 207 mg/dL High 120-200 [facility] Comment on above: Performed By: #### 2 391233, 67633296, 5621873, 5782965, 54428820, 4962239, 45602280 ####[facility] [address] [place] [address] Cholesterol in HDL [Mass/Vol] 45 mg/dL Invalid Interpretation Code [facility] Comment on above: Result Comment: HDL > or equal to 60 mg/dL: Low cardiovascular risk HDL < 40 mg/dL : High cardiovascular risk Performed By: #### 2 538656, 57347952, 8584165, 3056890, 52111787, 1322511, 90848173 ####[facility] [address] [place] [address] Cholesterol in LDL [Mass/Vol] 135 mg/dL High <=129 [facility] Comment on above: Performed By: #### 2 799567, 92491225, 1745514, 9580320, 64628255, 3165733, 24078124 ####[facility] [address] [place] [address] Cholesterol in VLDL [Mass/Vol] 22 mg/dL Normal 7-40 [facility] Comment on above: Performed By: #### 2 062086, 04601900, 6424426, 4728726, 47770003, 7842338, 28178589 ####[facility] [address] [place] [address] Triglyceride [Mass/Vol] 108 mg/dL Normal <=149 [facility] Comment on above: Performed By: #### 2 856568, 30181327, 3432181, 8327827, 58509016, 8629280, 27095544 ####[facility] [address] [place] [address] Nurse Consultation Noteon Nurse Consultation Note Reason for Visit Here for lab draw Assessment/Plan Disorder of prostate (N42.9: Disorder of prostate, unspecified) Dyslipidemia (E78.5: Hyperlipidemia, unspecified) Wellness examination (Z00.00: Encounter for general adult medical examination without abnormal findings) Medications Acidophilus, See Instructions aspirin 81 mg Oral EC Tab, 81 mg= 1 tab(s), Oral, Daily levothyroxine 100 mcg (0.1 mg) Tab, 100 mcg= 1 tab(s), Oral, Daily loratadine 10 mg Tab, 10 mg= 1 tab(s), Oral, Daily Metamucil, See Instructions Allergies methylPREDNISolone (Unknown) predniSONE (Unknown) Bee Stings (Unknown) Immunizations Vaccine Date Status Comments SARSCoV2 mRNA(kwame faith) vac 09/26/2021 Recorded influenza virus vaccine, inactivated 01/26/2021 Recorded SARS-CoV-2 (COVID-19) mRNA BNT-162b2 vax 01/26/2021 Recorded 2022-09-10: TPV60 diphtheria/pertussis, acel/tetanus adult 09/16/2020 Recorded SARS-CoV-2 (COVID-19) mRNA BNT-162b2 vax 06/28/2020 Recorded SARS-CoV-2 (COVID-19) mRNA BNT-162b2 vax 06/06/2020 Recorded influenza virus vaccine, inactivated 01/28/2020 Recorded influenza virus vaccine, inactivated 01/05/2019 Recorded Normal [facility] PSA Screen, Totalon 11-07-19 23 Prostate specific Ag [Mass/Vol] 0.6 ng/mL Normal 0.1-3.5 [facility] Comment on above: Result Comment: The concentration of PSA determined by different manufacturers can vary due to differences in assay methods and reagent specificity. Values obtained from different assay methods cannot be used interchangeably. The methodology used for this result was chemiluminescence using [employer]ite[employer] PSA reagent. Performed By: #### 2 392264, 04232607, 6444886, 3392697, 14111680, 4623342, 57620124 ####[facility] [address] [place] [address] TSH With T4fr Reflexon 11-06 TSH Qn 0.66 m[IU]/L Normal 0.34-5.60 [facility] Comment on above: Performed By: #### 2 010764, 46005911, 7023929, 8794029, 33071344, 5617345, 66673577 ####[facility] [address] [place] [address] eGFRon 11-06-2022 GFR/1.73 sq M.predicted among non-blacks MDRD (S/P/Bld) [Vol rate/Area] 85 mL/min/1.73 m2 Normal >=59 [facility] Comment on above: Order Comment: Order added by Discern Expert. Result Comment: Sound Ranging Crewmember raul kidney disease could be indicated at eGFR's of less than 60 mL/min/1.73m2. Kidney failure is indicated at less than 15 mL/min/1.73m2. Performed By: #### 2 020956, 46425149, 3514665, 5553444, 51460356, 8920321, 97965824 ####[facility] [address] [place] [address] XR Knee Complete 4+ Views Naima wilson 11-02-2022 XR Knee Complete 4+ Views Right Exam Date/Time: 10/31/2022 17:56 EDT Reason for Exam: Pain, Non Traumatic Report IMPRESSION: MILD TO MODERATE OSTEOARTHROSIS. EXAM: XR Knee Complete 4+ Views Right DATE: 10/31/2022 CLINICAL HISTORY: Pain, Non Traumatic. COMPARISON: None available. TECHNIQUE: AP, lateral, internal and external oblique radiographs of the right knee were obtained. FINDINGS: Mild to moderate tricompartmental osteoarthritic changes are present. There is no fracture, significant joint effusion, dislocation, worrisome bone destruction, radiodense foreign bodies, or other posttraumatic complication identified. Ordering Provider: Chico Wren FINAL REPORT Dictated: 11/02/2022 2:55 pm Robin Avila MD Signed (Electronic Signature): 11/02/2022 2:55 pm Signed by: Robin Avila MD Transcribed by: DAYANNA Technologist: ROMIE Technical Comments Radiation Dose: Ka,r in mGy = na DAP = na [facility] Consent for Treatmenton Consent for Treatment [id number]#1 .00CD:[address] [facility] Insurance Correspondenceon 0 10-30-2022 Insurance Correspondence [id number]# 1.00CD:[address] [facility] PT - Progress Noteson 2022 PT - Progress Notes [id number]#1 .00CD:[address] [facility] Retail - Clinical Noteon Retail - Clinical Note [id number]#1 .00CD:[address] [facility] PT - Progress Noteson 2022 PT - Progress Notes [id number]#1 .00CD:[address] [facility] Plan of Care - PT/OT/Speecho n 09-20-2022 Plan of Care - PT/OT/Speech [id number] .00CD:[address] [facility] Formson 09-11-2022 Forms [id number] .00CD:[address] [facility] Physician Referralon 023 Physician Referral [id number]#1 .00CD:127 Normal [facility] Ambulatory Visit Summaryon 0 09-10-2022 Ambulatory Visit Summary SOLO JIMENEZ :1960 Visit Date:09/10/2022 Ambulatory Visit Instructions Your Diagnosis Physical exam Multinodular goiter Dyslipidemia Disorder of prostate BMI 35.0-35.9,adult Class 1 obesity due to excess calories in adult Your Care Team Attending Physician - Chico Wren MD Primary Care Physician - Chico Wren MD This Is Your Medications List aspirin (aspirin 81 mg Oral EC Tab) lactobacillus acidophilus (Acidophilus) levothyroxine (levothyroxine 100 mcg (0.1 mg) Tab) psyllium (Metamucil) Procedures Performed Arthroscopy of knee, Other, Stye. Discharge Vitals Heart Rate (Peripheral) 62 Respiratory Rate 14 Blood Pressure 132/84 Height 176.3 cm Height 69 in Weight 109.76 kg Weight 241.472 lb BMI 35.31 What to do next Scheduled Follow-Up Appointments Saturday 8:20 AM EDT With: Where: [facility] Invalid Interpretation Code [address] [place] [address]- \.br \ You Need to Complete the Following\.b r\ CBC w/ Auto Diff, Blood, Routine collect, 09/10/22, Order for future visit, Lab Collect, Physical exam [facility] Family Medicine Office/Clini c Noteon 09-10-2022 Family Medicine Office/Clinic Note Chief Complaint establish care having right knee issues HPI Staff Establish care former pt of Dr Eaton's Establish Care: History: dyslipidemia, multinodular goiter Last provider: Uma Any recent labs: wellness 10/25/21 Health Maintenance UTD: Colonoscopy: 01/13 repeat 5 yrs ( Dr. Marks) PSA: 0.91 10/25/21 covid: UTD Acute: Current issues/complaints: injured right knee couple weekends ago, Dr Vasquez already had scoped it and cleaned it many years ago, thinks he ruptured his cruceate ligament Saw Dr Cruz Saturday for his thyroid nodules, they grew and had a biopsy came back benign did US saturday when seen and they shrunk History of Present Illness Solo Jimenez is a 62-year-old male who presents today for a physical exam. He states he recently stepped in a hole and his right knee has been loose and he feels it moving. He has been resting it. He notes he initially experienced swelling that resolved. The patient asked about concerns with atrial fibrillation as his mom was diagnosed at 83 years old. He is already taking a baby aspirin. No signs of atrial fibrillation today. Blood pressure is within normal limits. The patient is due for labs in 10/2022. No other concerns from the patient. Review of Systems PHQ Score Initial Depression Screen Score: 0 Physical Exam Vitals & Measurements HR: 62(Peripheral) RR: 14 BP: 132/84 SpO2: 97% HT: 69 in HT: 176.3 cm WT: 109.76 kg WT: 241.472 lb BMI: 35.31 General: alert, no acute distress Cardiovascular: regular rate and rhythm, normal peripheral perfusion Respiratory: Lungs CTA, respirations non labored Extremities: no deformity, no trauma. Right knee with no clicking or tender to palpation on the joint line. No swelling noted. No laxity in the ligaments on physical exam. Neurological: oriented x 4, LOC appropriate for age, CN II-XII intact, motor strength equal & normal bilaterally, speech normal Abdomen: Soft, nontender, nondistended. Assessment/Plan We will see the patient back in 3 months if not sooner. 1. Physical exam (Z00.00: Encounter for general adult medical examination without abnormal findings) Anticipatory guidance given. Discussed diet and exercise. We will do basic lab work and he will get it done in 10/2022. 2. Multinodular goiter (E04.2: Nontoxic multinodular goiter) Patient follows with Dr. Cruz. 3. Knee pain, right (M25.561: Pain in right knee) We will do physical therapy in [place]. If no improvement, we will move to an MRI. 4. Dyslipidemia (E78.5: Hyperlipidemia, unspecified) We will recheck cholesterol again. We will start medication as needed. 5. Disorder of prostate (N42.9: Disorder of prostate, unspecified) We will recheck his PSA again and if elevated, we will send to urology. 6. BMI 35.0-35.9,adult (Z68.35: Body mass index [BMI] 35.0-35.9, adult) BMI education given. 7. Class 1 obesity due to excess calories in adult (E66.09: Other obesity due to excess calories) As above. Discussed diet and exercise with the patient. Patient has lost 15 pounds. Portions of this record may have been created with voice recognition artificial intelligence software, specifically [employer], [employer] and or [employer]. Substitutions may have occurred due to the inherent limitations of voice recognition and artificial intelligence software. ATTESTATION: Documentation services were performed after patient or guardian consented to allow [employer] to record this visit. XIAO branch specialist and provider reviewed before signing. XIAO: Francine Dennis Follow-up No qualifying data available Patient Education BMI for Adults Problem List/Past Medical History Ongoing Disorder of prostate Dyslipidemia Knee pain, right Multinodular goiter Physical exam Shingles Skin cancer Historical No qualifying data Procedure/Surgical History Arthroscopy of knee, Other, Stye. Medications Acidophilus, See Instructions aspirin 81 mg Oral EC Tab, 81 mg= 1 tab(s), Oral, Daily levothyroxine 100 mcg (0.1 mg) Tab, 100 mcg= 1 tab(s), Oral, Daily Metamucil, See Instructions Allergies methylPREDNISolone (Unknown) predniSONE (Unknown) Bee Stings (Unknown) Social History Tobacco Never (less than 100 in lifetime) Tobacco Use:. Never Smokeless Tobacco Use:., 09/10/2022 Family History Cardiac arrhythmia: Mother. Diabetes mellitus type 2: Father. Hypertension: Mother. Immunizations Vaccine Date Status Comments SARSCoV2 mRNA(kwame faith) vac 09/26/2021 Recorded influenza virus vaccine, inactivated 01/26/2021 Recorded SARS-CoV-2 (COVID-19) mRNA BNT-162b2 vax 01/26/2021 Recorded 2022-09-10: TPV60 diphtheria/pertussis, acel/tetanus adult 09/16/2020 Recorded SARS-CoV-2 (COVID-19) mRNA BNT-162b2 vax 06/28/2020 Recorded SARS-CoV-2 (COVID-19) mRNA BNT-162b2 vax 06/06/2020 Recorded influenza virus vaccine, inactivated 01/28/2020 Recorded influenza virus vacci (more content not included)... Normal [facility] Comment on above: Result Comment: Elec tronically Signed By: Chico Wren MD\.br\Date and Time Signed: 09/10/22 15:02 EDT\.br\Electronically Co-Signed By: Francine Dennis\.br\Date and Time Co-Signed: 09/10/22 11:15 EDT Patient Educationon 09-11-19 Patient Education Nutrition BMI for Adults What is BMI? Body mass index (BMI) is a number that is calculated from a person's weight and height. BMI can help estimate how much of a person's weight is composed of fat. BMI does not measure body fat directly. Rather, it is an alternative to procedures that directly measure body fat, which can be difficult and expensive. BMI can help identify people who may be at higher risk for certain medical problems. What are BMI measurements used for? BMI is used as a screening tool to identify possible weight problems. It helps determine whether a person is obese, overweight, a healthy weight, or underweight. BMI is useful for: ? Identifying a weight problem that may be related to a medical condition or may increase the risk for medical problems. ? Promoting changes, such as changes in diet and exercise, to help reach a healthy weight. BMI screening can be repeated to see if these changes are working. How is BMI calculated? BMI involves measuring your weight in relation to your height. Both height and weight are measured, and the BMI is calculated from those numbers. This can be done either in [place] or metric measurements. Note that charts and online BMI calculators are available to help you find your BMI quickly and easily without having to do these calculations yourself. To calculate your BMI in [place] measurements: 1. Measure your weight in pounds (lb). 2. Multiply the number of pounds by 703. ? For example, for a person who weighs 180 lb, multiply that number by 703, which equals 126,540. 3. Measure your height in inches. Then multiply that number by itself to get a measurement called inches squared. ? For example, for a person who is 70 inches tall, the inches squared measurement is 70 inches x 70 inches, which equals 4,900 inches squared. 4. Divide the total from step 2 (number of lb x 703) by the total from step 3 (inches squared): 126,540 ? 4,900 = 25.8. This is your BMI. To calculate your BMI in metric measurements: 1. Measure your weight in kilograms (kg). 2. Measure your height in meters (m). Then multiply that number by itself to get a measurement called meters squared. ? For example, for a person who is 1.75 m tall, the meters squared measurement is 1.75 m x 1.75 m, which is equal to 3.1 meters squared. 3. Divide the number of kilograms (your weight) by the meters squared number. In this example: 70 ? 3.1 = 22.6. This is your BMI. What do the results mean? BMI charts are used to identify whether you are underweight, normal weight, overweight, or obese. The following guidelines will be used: ? Underweight: BMI less than 18.5. ? Normal weight: BMI between 18.5 and 24.9. ? Overweight: BMI between 25 and 29.9. ? Obese: BMI of 30 or above. Keep these notes in mind: ? Weight includes both fat and muscle, so someone with a muscular build, such as an athlete, may have a BMI that is higher than 24.9. In cases like these, BMI is not an accurate measure of body fat. ? To determine if excess body fat is the cause of a BMI of 25 or higher, further assessments may need to be done by a health care provider. ? BMI is usually interpreted in the same way for men and women. Where to find more information For more information about BMI, including tools to quickly calculate your BMI, go to these websites: ? Centers for Disease Control and Prevention: www.cdc.gov ? [place] Heart Association: www.heart.org ? National Heart, Lung, and Blood [place]: www.nhlbi.nih.gov Summary ? Body mass index (BMI) is a number that is calculated from a person's weight and height. ? BMI may help estimate how much of a person's weight is composed of fat. BMI can help identify those who may be at higher risk for certain medical problems. ? BMI can be measured using Scottish measurements or metric measurements. ? BMI charts are used to identify whether you are underweight, normal weight, overweight, or obese. This information is not intended to replace advice given to you by your health care provider. Make sure you discuss any questions you have with your health care provider. Document Revised: 12/02/2019 Document Reviewed: 10/09/2019 [employer] Patient Education ? [address] [facility] US THYROIDon 07-31-2022 US THYROID EXAMINATION: US THYROID HISTORY: Non-toxic multinodular goiter ; follow-up thyroid nodules; history of right lobe benign biopsy COMPARISON: Ultrasound thyroid 02/20/2022, 04/05/2022, 03/03/2021, 11/13/2019 FINDINGS: RIGHT LOBE: Contains a stable 16 x 11 x 14 mm TR 5 nodule; previously biopsied and shown to be benign. Lobe size: 4.1 x 2.1 x 1.7 cm LEFT LOBE: Contains a 6 mm TR 4 nodule within superior pole; a 15 x 12 x 10 mm TR 4 nodule within mid body; and an 8 x 7 x 7 mm TR 3 nodule within the inferior pole; all remain stable. Lobe size: 5.0 x 1.4 x 1.5 cm ISTHMUS: Normal size and echotexture. Thickness: 2 mm IMPRESSION: 1. Stable 16 mm TR 5 nodule within the right lobe. This was biopsied on 04/05/2022 with benign results the pathology. 2. Stable left lobe nodules favoring benign etiology. Electronically authenticated by: ISAIAH CARO Date: 2022-07-31 09:29 Normal [facility] US THYROID FN ASP BXon 04-12 US THYROID FN ASP BX Begin Addendum #1 COLLECTED DATE/TIME: 04/05/2022, 12:57 EST Final Diagnosis Report for [facility], [place], [place] (A/B) RIGHT THYROID NODULE, ULTRASOUND-GUIDED FINE NEEDLE ASPIRATION: - BENIGN COMMENT: The specimen consists of rare colloid fragments and occasional groups of bland follicular cells, consistent with benign follicular nodule. 04/10/[address] Cruz. Verified with Jody that report was present in the office. Original Report EXAMINATION: US THYROID FN ASP BX HISTORY: Thyroid nodule COMPARISON: Ultrasound thyroid 02/20/2022 TECHNIQUE: After obtaining informed consent, ultrasound-guided fine needle aspiration was performed in the usual sterile manner. FINDINGS: IMAGING: Ultrasound. BIOPSY NEEDLE: 25-gauge; 3 separate passes LOCATION: Right lobe 1.7 x 1.6 x 1.5 cm rounded mass with central calcification. SPECIMEN TYPE: Cellular tissue. LOCAL ANESTHETIC: Buffered Xylocaine. COMPLICATIONS: None. LABORATORY: Prepared slide smears and washings for cell block evaluation. OTHER: Negative. PATHOLOGY: Pending. An addendum will be added when results are available. IMPRESSION: 1. Uneventful ultrasound guided fine needle aspiration (FNA). 2. Pathology results are pending. Normal [facility] US THYROIDon 02-20-2022 US THYROID EXAMINATION: US THYROID HISTORY: Non-toxic multinodular goiter COMPARISON: Multiple studies 2020 TECHNIQUE: Sonographic images of the thyroid gland were obtained. FINDINGS: The right thyroid lobe measures 5.0 x 2.0 x 1.5 cm. Homogeneous echotexture with a single nodule. Nodule 1: Mid lobe. 1.9 x 1.9 x 1.3 cm. Solid, isoechoic, tall, smooth margins, macrocalcifications. TR 5 The thyroid isthmus measures 2 mm, homogeneous, no focal nodule The left thyroid lobe measures 5.0 x 1.5 x 1.9 cm. Homogeneous echotexture with 3 nodules the most suspicious: Nodule 1: Inferior lobe. 1.6 x 1.1 x 1.5 cm. Solid, hypoechoic, wide, smooth margins, macrocalcifications. TR 4 IMPRESSION: Interval increase in size of a now 1.9 cm right thyroid TR 5 nodule. While this nodule has been previously biopsied, light of the interval change, consider fine-needle aspiration TI-RADS: The [employer] TI-RADS committee's white paper recommendations for thyroid lesions classified as TR5 (highly suspicious) are listed below: > 0.5 cm. Annual ultrasound follow-up for up to 5 years. > 1.0 cm. FNA. J. Am Shelli Radiol 2017;14:587-595. Electronically authenticated by: CHRIS HOLLEY Date: 2022-02-20 13:51 Normal [facility] 12-29-2021 L - -------- Specimen: [id number] Received: 12/29/21 Status: JORDI Moratayagallo Num: [id number] Spec Type: Surgical Subm Dr: Jairo Estevez MD Tissues: A Colon Biopsy (SIGMOID) Procedures: HE Stain/2, Gross/Micro L4 -------- Age/ Patient Sex Location Account Attending Physician -------- Solo Jimenez/M [id number] Jairo Estevez MD -------- SPEC NUM: [id number] RECD: 12/29/21 STATUS: JORDI BOYD NUM: [id number] SHELLI: 12/29/[address]: Jairo Estevez MD ENTERED: 12/29/[address]: SPEC TYPE: Surgical DEPT: S ORDERED: HE Stain/2, Gross/Micro L4 ORDERED: HE Stain/2, Gross/Micro L4 Pathological Diagnosis Sigmoid colon, biopsy: - Benign colonic mucosa with lymphoid aggregates. - No evidence of chronic, active or microscopic colitis identified. Clinical Information History of colon polyps Gross Description Received in formalin labeled with the patient's name, number and biopsy sigmoid colon are two fragments of soft ybarra tissue each measuring 0.3 cm. Entirely submitted in one cassette labeled A1. Microscopic Description Two glass slides with H E stained material have been examined. The microscopic findings support the above pathologic diagnosis. This case is interpreted at [facility], [place] [address]. -------- Specimen: [id number] Received: 12/29/21 Status: JORDI Boyd Num: [id number] Spec Type: Surgical Subm Dr: Jairo Estevez MD Tissues: A Colon Biopsy (SIGMOID) Procedures: HE Stain/2, Gross/Micro L4 -------- Patient: Solo Jimenez [id number] (Continued) -------- Specimen: [id number] Received: 12/29/21 (Continued) Signed (signature on file) Fredrick Lee MD 01/02/22 0857 -------- Specimen: [id number] Received: 12/29/21 Status: JORDI Boyd Num: [id number] Spec Type: Surgical Subm Dr: Jairo Estevez MD Tissues: A Colon Biopsy (SIGMOID) Procedures: HE Stain/2, Gross/Micro L4 -------- Patient: Solo Jimenez [id number] (Continued) -------- Specimen: [id number] Received: 12/29/21 (Continued) CPT Codes 18076 -------- -------- Specimen: [id number] Received: 12/29/21 Status: JORDI Boyd Num: [id number] Spec Type: Surgical Subm Dr: Jairo Estevez MD Tissues: A Colon Biopsy (SIGMOID) Procedures: HE Stain/2, Gross/Micro L4 -------- Patient: Solo Jimenez [id number] (Continued) -------- Signed (signature on file) Fredrick Lee MD 01/02/22 0857 [facility] COVID-19 Antigenon 2 COVID-19 Antigen Healthcare Worker?: N Reference Range: Negative Negative results, from patients with symptom onset beyond five days, should be treated as presumptive and confirmation with a molecular assay, if necessary, for patient management, may be performed. Negative results do not rule out COVID-19 and should not be used as the sole basis for treatment or patient management decisions, including infection control decisions. Negative results should be considered in the context of a patient's recent exposures, history and the presence of clinical signs and symptoms consistent with COVID-19. The Koko SARS Antigen TAHIR does not differentiate between SARS-CoV and SARS-CoV-2. This test was developed and its performance characteristic determined by [email or web address] and validated at [facility]. This test has not been FDA cleared or approved. This test has been authorized by FDA under an Emergency Use Authorization (EUA). This test has been validated in accordance with the FDA's Guidance Document (Policy for Diagnostics Testing in Laboratories Certified to Perform High Complexity Testing under CLIA prior to Emergency Use Authorization for Coronavirus Disease-2019 during the Public Health Emergency) issued on June 25, 2019. This test is only authorized for the duration of time the declaration that circumstances exist justifying the authorization of the emergency use of in vitro diagnostic tests for detection of SARS-CoV-2 virus and/or diagnosis of COVID-19 infection under section 564(b)(1) of the Act, 21 U.S.C. 360bbb-3(b)(1), unless the authorization is terminated or revoked sooner. SARS-CoV+SARS-CoV-2 (COVID-19) Ag [Presence] in Respiratory specimen by Rapid immunoassay Negative for SARS Antigen by TAHIR PERFORMED BY: [place] [address] PATHOLOGIST BACKHOE OPERATOR LOS FRANCIS M.D. Normal [facility] Comment on above: Performed By: #### S DONTAE, COVID-19 KOKO #### [address] COVID-19 SOFIAOrdered By: Ronit Estevez on 12-27-2021 SARS-CoV+SARS-CoV-2 (COVID-19) Ag IA.rapid Ql (Resp) Negative Negative [facility] Comment on above: This is a duplicate Koko SARS Antigen (TAHIR) result to be used for statistical tracking purpose only. No Panel InformationOrdered By: Jairo Estevez on 12-27-2021 SARS Antigen (LFIA) [facility] Koko Ag Negativeon 12-28-19 22 Koko Ag Negative Negative Normal Negative [facility] Comment on above: Result Comment: This is a duplicate Koko SARS Antigen (TAHIR) result to be used for statistical tracking purpose only. PERFORMED BY: [place] [address] PATHOLOGIST BACKHOE OPERATOR LOS FRANCIS M.D. Performed By: #### S OFIANEG, COVID-19 KOKO #### [address] CBC AUTO DIFFon 10-25-2021 BASO # 0.1 103/ul Normal 0.0-0.1 [facility] Comment on above: Performed By: #### C BC #### [facility] [address] [place] [address] Dr. Kareem Roldan Basophils/100 WBC (Bld) 1.2 % Normal 0.2-2.0 [facility] Comment on above: Performed By: #### C BC #### [facility] [address] [place] [address] Dr. Kareem Roldan EO # 0.3 103/ul Normal 0.0-0.7 [facility] Comment on above: Performed By: #### C BC #### [facility] [address] [place] [address] Dr. Kareem Roldan Eosinophils/100 WBC (Bld) 5.0 % Normal 0.9-7.0 [facility] Comment on above: Performed By: #### C BC #### [facility] [address] [place] [address] Dr. Kareem Roldan Erythrocyte distribution width (RBC) [Ratio] 12.2 % Normal 11.0-15.0 [facility] Comment on above: Performed By: #### C BC #### [facility] [address] [place] [address] Dr. Kareem Roldan Hematocrit (Bld) [Volume fraction] 43.3 % Normal 42.0-54.0 [facility] Comment on above: Performed By: #### C BC #### [facility] [address] [place] [address] Dr. Kareem Roldan Hemoglobin (Bld) [Mass/Vol] 14.7 g/dL Normal 14.0-18.0 [facility] Comment on above: Performed By: #### C BC #### [facility] [address] [place] [address] Dr. Kareem Roldan IG # 0.04 10e3/ul Critically high 0.00-0.03 [facility] Comment on above: Performed By: #### C BC #### [facility] [address] [address] [address] Kareem Roldan IG % 0.6 % Critically high 0.0-0.5 [facility] Comment on above: Performed By: #### C BC #### [facility] [address] [place] [address] Dr. Kareem Roldan LYMPH # 1.7 103/ul Normal 1.2-3.8 [facility] Comment on above: Performed By: #### C BC #### [facility] [address] [place] [address] Dr. Kareem Roldan Lymphocytes/100 WBC (Bld) 25.3 % Normal 20.5-60.0 [facility] Comment on above: Performed By: #### C BC #### [facility] [address] [place] [address] Dr. Kareem Roldan MANUAL DIFF REQ NO Normal [facility] Comment on above: Performed By: #### C BC #### [facility] [address] [place] [address] Dr. Kareem Roldan MCH (RBC) [Entitic mass] 29.3 pg Normal 25.9-34.0 [facility] Comment on above: Performed By: #### C BC #### [facility] [address] [place] [address] Dr. Kareem Roldan MCHC (RBC) [Mass/Vol] 33.9 g/dL Normal 29.9-35.2 [facility] Comment on above: Performed By: #### C BC #### [facility] [address] [place] [address] Dr. Kareem Roldan MCV (RBC) [Entitic vol] 86.4 fL Normal 80.0-94.0 [facility] Comment on above: Performed By: #### C BC #### [facility] [address] [place] [address] Dr. Kareem Roldan MONO # 0.6 103/ul Normal 0.3-0.8 [facility] Comment on above: Performed By: #### C BC #### [facility] [address] [place] [address] Dr. Kareem Roldan Monocytes/100 WBC (Bld) 8.4 % Normal 1.7-12.0 [facility] Comment on above: Performed By: #### C BC #### [facility] [address] [place] [address] Dr. Kareem Roldan NEUT # 4.0 103/ul Normal 1.4-6.5 [facility] Comment on above: Performed By: #### C BC #### [facility] [address] [place] [address] Dr. Kareem Roldan Neutrophils/100 WBC (Bld) 59.5 % Normal 43.0-75.0 [facility] Comment on above: Performed By: #### C BC #### [facility] [address] [place] [address] Dr. Kareem Roldan Platelet mean volume (Bld) [Entitic vol] 9.8 fL Normal 9.5-13.5 [facility] Comment on above: Performed By: #### C BC #### [facility] [address] [place] [address] Dr. Kareem Roldan PLT 226 103/ul Normal 150-450 [facility] Comment on above: Performed By: #### C BC #### [facility] [address] [place] [address] Dr. Kareem Roldan RBC 5.01 106/ul Normal 4.70-6.10 [facility] Comment on above: Performed By: #### C BC #### [facility] [address] [place] [address] Dr. Kareem Roldan WBC 6.7 103/ul Normal 4.0-11.0 [facility] Comment on above: Performed By: #### C BC #### [facility] [address] [address] [address] Kareem Roldan FREE T3on 10-25-2021 FREE T3 3.31 pg/mlL Normal 2.18-3.98 [facility] Comment on above: Performed By: #### L IPID, FT3, CMP, TSH #### [facility] [address] [address] [address] Kareem Roldan FREE T4on 10-25-2021 Free T4 [Mass/Vol] 1.27 ng/dL Normal 0.76-1.46 [facility] Comment on above: Performed By: #### F T4, PSAD #### [facility] [address] [place] [address] Dr. Kareem Roldan LIPID PROFILEon 10-25-2021 CHOL-HDL RATIO NORM SEE BELOW Normal [facility] Comment on above: Result Comment: 3.3 - 4.4 LOW RISK 4.4 - 7.1 AVERAGE RISK 7.1 - 11.0 MODERATE RISK >11.0 HIGH RISK Performed By: #### L IPID, FT3, CMP, TSH #### [facility] [address] [address] [address] Kareem Roldan Cholesterol [Mass/Vol] 200 mg/dL Normal <=200 [facility] Comment on above: Performed By: #### L IPID, FT3, CMP, TSH #### [facility] [address] [address] [address] Kareem Roldan Cholesterol in HDL [Mass/Vol] 44 mg/dL Normal 40-60 [facility] Comment on above: Performed By: #### L IPID, FT3, CMP, TSH #### [facility] [address] [address] [address] Kareem Roldan Cholesterol in LDL [Mass/Vol] 119.6 mg/dL Normal [facility] Comment on above: Performed By: #### L IPID, FT3, CMP, TSH #### [facility] [address] [address] [address] Kareem Roldan Cholesterol.total/Chol esterol in HDL [Mass ratio] 4.5 {ratio} Normal [facility] Comment on above: Performed By: #### L IPID, FT3, CMP, TSH #### [facility] [address] [place] [address] Dr. Kareem Roldan HDL NORMAL > or = 60 mg/dl - LO W CARDIOVASCULAR RISK <40 mg/dl - HIGH CARDIOVASCULAR RISK Normal [facility] Comment on above: Performed By: #### L IPID, FT3, CMP, TSH #### [facility] [address] [address] [address] Kareem Roldan LDL CALC NORMAL SEE BELOW Normal [facility] Comment on above: Result Comment: <100 mg/dl OPTIMAL 100 - 129 mg/dl NEAR OR ABOVE OPTIMAL 130 - 159 mg/dl BORDERLINE HIGH 160 - 189 mg/dl HIGH >190 mg/dl VERY HIGH Performed By: #### L IPID, FT3, CMP, TSH #### [facility] [address] [place] [address] Dr. Kareem Roldan Triglyceride [Mass/Vol] 182 mg/dL Critically high <=150 [facility] Comment on above: Performed By: #### L IPID, FT3, CMP, TSH #### [facility] [address] [place] [address] Dr. Kareem Roldan VLDL CALC 36.4 mg/dL Normal [facility] Comment on above: Performed By: #### L IPID, FT3, CMP, TSH #### [facility] [address] [place] [address] Dr. Kareem Roldan PROF 14(COMP METB)on 022 Albumin [Mass/Vol] 3.6 g/dL Normal 3.4-5.0 [facility] Comment on above: Performed By: #### L IPID, FT3, CMP, TSH #### [facility] [address] [place] [address] Dr. Kareem Roldan Albumin/Globulin [Mass ratio] 1.2 {ratio} Normal [facility] Comment on above: Performed By: #### L IPID, FT3, CMP, TSH #### [facility] [address] [place] [address] Dr. Kraeem Roldan ALP [Catalytic activity/Vol] 70 U/L Normal 46-116 [facility] Comment on above: Performed By: #### L IPID, FT3, CMP, TSH #### [facility] [address] [address] [address] Kareem Roldan ALT [Catalytic activity/Vol] 35 U/L Normal 16-63 [facility] Comment on above: Performed By: #### L IPID, FT3, CMP, TSH #### [facility] [address] [address] [address] Kareem Roldan Anion gap [Moles/Vol] 10.4 mmol/L Normal [facility] Comment on above: Performed By: #### L IPID, FT3, CMP, TSH #### [facility] [address] [address] [address] Kareem Roldan AST [Catalytic activity/Vol] 15 U/L Normal 15-37 [facility] Comment on above: Performed By: #### L IPID, FT3, CMP, TSH #### [facility] [address] [address] [address] Kareem Roldan Bilirubin [Mass/Vol] 0.9 mg/dL Normal 0.2-1.0 [facility] Comment on above: Performed By: #### L IPID, FT3, CMP, TSH #### [facility] [address] [address] [address] Kareem Roldan Calcium [Mass/Vol] 8.8 mg/dL Normal 8.5-10.1 [facility] Comment on above: Performed By: #### L IPID, FT3, CMP, TSH #### [facility] [address] [address] [address] Kareem Roldan Chloride [Moles/Vol] 104 mmol/L Normal 98-107 [facility] Comment on above: Performed By: #### L IPID, FT3, CMP, TSH #### [facility] [address] [address] [address] Kareem Roldan CO2 [Moles/Vol] 30.7 mmol/L Normal 21.0-32.[address] [facility] Comment on above: Performed By: #### L IPID, FT3, CMP, TSH #### [facility] [address] [place] [address] Dr. Kareem Roldan Creatinine [Mass/Vol] 0.95 mg/dL Normal 0.70-1.30 [facility] Comment on above: Performed By: #### L IPID, FT3, CMP, TSH #### [facility] [address] [place] [address] Dr. Kareem Roldan EGFR-AF [place]THER[place] >60 Normal >=[address] [facility] Comment on above: Performed By: #### L IPID, FT3, CMP, TSH #### [facility] [address] [place] [address] Dr. Kareem Roldan EGFR-NON AF [place] >60 Normal >=60 [facility] Comment on above: Performed By: #### L IPID, FT3, CMP, TSH #### [facility] [address] [place] [address] Dr. Kareem Roldan Globulin (S) [Mass/Vol] 3.1 g/dL Normal [facility] Comment on above: Performed By: #### L IPID, FT3, CMP, TSH #### [facility] [address] [place] [address] Dr. Kareem Roldan Glucose [Mass/Vol] 117 mg/dL Critically high 74-106 [facility] Comment on above: Performed By: #### L IPID, FT3, CMP, TSH #### [facility] [address] [place] [address] Dr. Kareem Roldan Potassium [Moles/Vol] 4.1 mmol/L Normal 3.5-5.1 [facility] Comment on above: Performed By: #### L IPID, FT3, CMP, TSH #### [facility] [address] [place] [address] Dr. Kareem Roldan Protein [Mass/Vol] 6.7 g/dL Normal 6.4-8.2 [facility] Comment on above: Performed By: #### L IPID, FT3, CMP, TSH #### [facility] [address] [address] [address] Kareem Roldan Sodium [Moles/Vol] 141 mmol/L Normal 136-145 [facility] Comment on above: Performed By: #### L IPID, FT3, CMP, TSH #### [facility] [address] [address] [address] Kareem Roldan Urea nitrogen [Mass/Vol] 14.0 mg/dL Normal 7.0-18.0 [facility] Comment on above: Performed By: #### L IPID, FT3, CMP, TSH #### [facility] [address] [address] [address] Kareem Roldan Urea nitrogen/Creatinine [Mass ratio] 14.7 mg/mg Normal [facility] Comment on above: Performed By: #### L IPID, FT3, CMP, TSH #### [facility] [address] [address] [address] Kareem Roldan TSHon 10-25-2021 TSH 0.989 uIU/mL Normal 0.358-3.740 [facility] Comment on above: Performed By: #### L IPID, FT3, CMP, TSH #### [facility] [address] [address] [address] Kareem Roldan Social History Date Type Detail Facility Start: 12-29-2021 End: 08-29-2023 Tobacco smoking status NHIS Never smoked tobacco (finding) [facility] Start: 1960 Sex Assigned At Male [facility] Tobacco smoking stat us CAIS Unknown if ever smoked [facility] Work Phone: Tobacco smoking status Never [facility] Sex Assigned At Male [facility] Vital Signs Date Time Vital Sign Value Performing Clinician Faci lity 12-29-2021 11:00-0400 Diastolic blood pressure 80 mm[Hg] MD Annel Eaton Work Phone: [facility] 12-29-2021 11:00-0400 Heart rate 85 /min MD Annel Eaton Work Phone: [facility] 12-29-2021 11:00-0400 Respiratory rate 16 /min MD Annel Eaton Work Phone: [facility] 12-29-2021 11:00-0400 SaO2% (BldA) [Mass fraction] 99 % MD Annel Eaton Work Phone: [facility] 12-29-2021 11:00-0400 Systolic blood pressure 133 mm[Hg] MD Annel Eaton Work Phone: [facility] 12-29-2021 08:37-0400 Body height 177.8 cm MD Annel Eaton Work Phone: [facility] 12-29-2021 08:37-0400 Body temperature 99.3 [degF] MD Annel Eaton Work Phone: [facility] 12-29-2021 08:37-0400 Body weight 108.86 kg MD Annel Eaton Work Phone: [facility] Clinical Notes 12-29-2021 to 08-26-2023 LaboratoryRadiologyLaboratoryRadiologyLaboratoryRadiology Note Date & Type Note Facility 08-26-2023 Note [id number]-22-2023 Note [id number]#1.00[facility] 12-29-2021 Procedure note [facility] Evaluation + Plan note Future Appointments Appointment Date:11/06/2022 08:20:00 AM Scheduled Provider: Location:[facility] Appointment Type:FM Lab Draw Appointment Date:12/10/2022 07:00:00 AM Scheduled Provider:Chico Wren MD [facility] Type: Open Future Scheduled TestsPSA Screen, Total 09/10/22PSA Screen, Total 10/30/22TSH With T4fr Reflex 09/10/22TSH With T4fr Reflex 10/30/22CBC w/ Auto Diff 09/10/22CBC w/ Auto Diff 10/30/22Comprehensive Metabolic Panel 09/10/22Comprehensive Metabolic Panel 10/30/22Lipid Panel 09/10/22Lipid Panel 10/30/22MRI Knee w/o Contrast Right 10/24/22 [facility] Evaluation + Plan note Future Appointments Appointment Date:12/10/2022 07:00:00 AM Scheduled Provider:Chico Wren MD Location:[facility] Appointment Type: Open Future Scheduled TestsPSA Screen, Total 09/10/22TSH With T4fr Reflex 09/10/22CBC w/ Auto Diff 09/10/22Comprehensive Metabolic Panel 09/10/22Lipid Panel 09/10/22MRI Knee w/o Contrast Right 10/24/22 [facility] Evaluation + Plan note Future Appointments Appointment Date:09/08/2024 08:15:00 AM Scheduled Provider:Chico Wren MD Location:[facility] Appointment Type: Open Future Scheduled TestsPSA Screen, Total 09/10/22TSH With T4fr Reflex 09/10/22CBC w/ Auto Diff 09/10/22Comprehensive Metabolic Panel 09/10/22Lipid Panel 09/10/22MRI Knee w/o Contrast Right 11/07/22MRI Knee w/o Contrast Right 10/24/22 [facility] Evaluation note No assessment inform ation available [facility] Work Phone: Evaluation note Diagnosis Onset Date History of colon polyps acut e [facility] Work Phone: Hospital course Narrative No data available for this section [facility] Additional Instructions DISCHARGE INSTRUCTIONS FOR ENDOSCOPY FOR COLONOSCOPY: -Expect a gassy or full feeling after a colonoscopy. Report any NEW abdominal pain or vomiting. -Watch for rectal bleeding if you have a polyp removed. You may have oozing, but notify the doctor if you pass clots. -Avoid aspirin for 2 days IF a polyp is removed. -It is important to keep your appointments for follow up examinations because polyps can grow back. FOR SEDATION FOR 24 HOURS: -NO driving -Do NOT operate machinery such as power tools, lawn mowers, snow blowers, sewing machines, etc. -Avoid alcoholic beverages and drugs for allergies, nerves, or sleep. -Do NOT stay alone. Do NOT leave your child unattended. -Do NOT make important personal or business decisions or sign any legal documents. -Eat solid foods and drink liquids in smaller amounts than usual until normal appetite returns. If you should experience an upset stomach, liquids high in sugar content (soda, Erick-aid, non-acid juices) are recommended. -You can resume normal activities tomorrow. FOLLOW UP -Please call the office and make a follow up appointment to see me as needed. - Repeat colonoscopy in 5 years -Notify the doctor if you have any problems. -[facility] number [phone] Hospital Discharge instructions No data available for this section [facility] No data available for this section [facility] Chief Complaint and Reason for Visit Chief Complaint Hx of Colon Polyps Chief Complaint Hx of Colon Polyps Hx of Colon Polyps Reason for Visit History of colon jarred yps Advance Directives No Advanced Directives Records Found Advance Directive Response Recorded Date/ Time Advance Directives No November 5:41pm Summary Purpose Family History No Family History Records Found Additional Source Comments Care Teams (unrecognized sec tion and content) Team Status: Inactive Member Role Status Dates Annel Eaton MD Primary Care Provider Active Jairo Estevez MD Attending Provider Active Team Status: Active Member Role Status Dates Annel Eaton MD Primary Care Provider Active Goals (unrecognized section and content) Goals may be documented in a n alternate section No data available for this section No data available for this section No data available for this section (unrecognized sect ion and content) No Status Records FoundNo Status Records FoundNo Status Records FoundNo Status Records FoundNo Status Records FoundNo Status Records FoundNo Status Records FoundNo Status Records Found INFORMATION SOURCE (unrecogn ized section and content) DATE CREATED AUTHOR 01/02/2022 [facility] DATE CREATED AUTHOR AUTHOR'S ORGANIZ ATION 08/05/2022 [facility] DATE CREATED AUTHOR AUTHOR'S ORGANIZ ATION 08/30/2023 [facility] DATE CREATED AUTHOR AUTHOR'S SHEREE KNIGHT 08/31/2023 [facility] FOR RECORDS PERTAINING TO PATIENTS WHO ARE OR HAVE BEEN ENROLLED IN A CHEMICAL DEPENDENCY/SUBSTANCEABUSE PROGRAM, SOME INFORMATION MAY BE OMITTED. This clinical summary was aggregated from multiple sources. Caution should be exercised in using it in the provision of clinical care. This summary normalizes information from multiple sources, and as a consequence, information in this document may materially change the coding, format and clinical context of patient data. In addition, data may be omitted in some cases. CLINICAL DECISIONS SHOULD BE BASED ON THE PRIMARY CLINICAL RECORDS. [facility] provides no warranty or guarantee of the accuracy or completeness of information in this document.
== END 2023-09-05 07:23 | disposition home or self-care (01) ==
LOC: US 07:22
PROVIDERS: PCP Family Medicine; Visit Provider Otolaryngology
DX: E03.9 Hypothyroidism, unspecified (principal); E04.2 Nontoxic multinodular goiter
CPT/HCPCS: 76536

== ENCOUNTER 2023-10-11 10:13 | Day surgery (SDC) | payer OTHER, SELFPAY ==
--- NOTE | 2023-10-11 10:22 | US_ITS ---
[address] [address] Patient Name: SOLO JIMENEZ MRN: [id number] date: 1960 Sex: M Assigned Patient Location: US Current Patient Location: US Accession/Order Number: [id number] Exam Date: 10/11/2023 10:45 Report Date: 10/11/2023 12:08 At the request of: LOULOU CRUZ Procedure: US biopsy FNA add lesion EXAMINATION: US biopsy thyroid, US biopsy FNA add lesion HISTORY: Thyroid Nodules COMPARISON: Ultrasound thyroid 09/05/2023 TECHNIQUE: After obtaining informed consent, ultrasound-guided fine needle aspiration was performed in the usual sterile manner. FINDINGS: IMAGING: Ultrasound. BIOPSY NEEDLE: 25-gauge needles; 3 separate passes within both lesions. LOCATION: Right lobe 1.6 cm mass. Left lobe 1.5 cm mass. SPECIMEN TYPE: Cellular tissue. LOCAL ANESTHETIC: Buffered Xylocaine. COMPLICATIONS: None. LABORATORY: Prepared slide smears and washings for cell block evaluation. OTHER: Negative. PATHOLOGY: Pending. An addendum will be added when results are available. US/US biopsy FNA add lesion IMPRESSION: 1. Uneventful ultrasound guided fine needle aspiration (FNA). 2. Pathology results are pending. Electronically authenticated by: ISAIAH CARO Date: 10/11/2023 12:08
--- NOTE | 2023-10-11 10:22 | US_ITS ---
[address] [address] Patient Name: SOLO JIMENEZ MRN: [id number] date: 1960 Sex: M Assigned Patient Location: US Current Patient Location: US Accession/Order Number: [id number] Exam Date: 10/11/2023 10:45 Report Date: 10/11/2023 12:08 At the request of: LOULOU CRUZ Procedure: US biopsy thyroid EXAMINATION: US biopsy thyroid, US biopsy FNA add lesion HISTORY: Thyroid Nodules COMPARISON: Ultrasound thyroid 09/05/2023 TECHNIQUE: After obtaining informed consent, ultrasound-guided fine needle aspiration was performed in the usual sterile manner. FINDINGS: IMAGING: Ultrasound. BIOPSY NEEDLE: 25-gauge needles; 3 separate passes within both lesions. LOCATION: Right lobe 1.6 cm mass. Left lobe 1.5 cm mass. SPECIMEN TYPE: Cellular tissue. LOCAL ANESTHETIC: Buffered Xylocaine. COMPLICATIONS: None. LABORATORY: Prepared slide smears and washings for cell block evaluation. OTHER: Negative. PATHOLOGY: Pending. An addendum will be added when results are available. US/US biopsy thyroid IMPRESSION: 1. Uneventful ultrasound guided fine needle aspiration (FNA). 2. Pathology results are pending. Electronically authenticated by: ISAIAH CARO Date: 10/11/2023 12:08
[2023-10-11 10:30] VITALS: BP 139/74; PULSE 71; O2SAT 97
--- OUTSIDE RECORDS SUMMARY | 2023-10-11 10:35 | XMS_ITS | CCD ---
Author Organization [facility] Care Team Providers Care Prune Washer Name Role Phone MD Annel Eaton Primary Care Provider MD Jairo Nick Attending Provider Annel Eaton Primary Care Unavailable Jairo Nick Admitting UnavailJairo Collins Attending UnavailJairo Collins Attending UnavailAnnel Garcia Primary Care Unavailable Jairo Nick Admitting Unavailabl chandler EATON ., DR ANNEL Lemus Primary Care Unavailable SCOTT ., OLGA Admitting Unavailable SCOTT ., OLGA Attending Unavailable SCOTT ., OLGA Consulting Unavailable TIMMIEwelina, DR JAMIL Admitting Unavailable TIMMIS, DR JAMIL [...] Care Unavailable TIMMIS, DR JAMIL Consulting Unavailable WEST, DR CHRIS Samuel Consulting Unavailable TIMMIS, DR JAMIL Admitting Unavailable TIMMIS, DR JAMIL Attending Unavailable EATON ., DR ANNEL Lemus Primary Care Unavailable ANTHONY, DR JAMIL Consulting Unavailable GORDO, DR ISAIAH Harden Consulting Unavailable Renee Shine Primary Care Physician Renee Shine Admitting Unavailable Renee Shine Attending Unavailable Sidney POWELL Attending Unavailable LOULOU CRUZ Attending Unavailable RENEE SHINE Referring Unavailable MD Renee Shine Attending Unavailable MD Renee Shine Admitting Unavailable MD Renee Shine Attending Unavailable ROBERT GOODMAN Admitting Unavailable ROBERT GOODMAN Attending Unavailable ROBERT GOODMAN Referring Unavailable MD Renee Shine Admitting Unavailable MD Renee Shine Attending Unavailable MD Renee Shine Admitting Unavailable MD Renee Shine Attending Unavailable MD Renee Shine Admitting Unavailable MD Renee Shine Attending Unavailable MD Renee Shine Attending Unavailable MD Renee Shine Attending Unavailable Allergies Allergy Classification Reported Allergen(s) Allergy Type Date of Onset Reaction(s) Facility Bee/Wasp/Ant Venom (1 source) Bee/Wasp/Ant venom; Translations: [Bee Stings] Substance Allergy [facility] Repository Corticosteroids (2 sources) methylPREDNISolone; Translations: [methylPREDNISolone] Drug Allergy [facility] Repository (3 sources) Bee pollen; Translations: [bee pollen] Allergy to substance 12-22-19 17 [facility] (7 sources) methylPREDNISolone; Translations: [methylprednisolone] Drug Allergy 12-22-19 17 Unknown (qualifier value) [facility] (1 source) bee venom Drug allergy (disorder) 02-25-20 13 [facility] Rep[facility] (1 source) methylPREDNISolone Drug Allergy 02-25-20 13 [facility] (1 source) Shellfish Drug allergy (disorder) 02-18-20 13 [facility] (4 sources) Bee/Wasp/Ant venom; Translations: [Bee Stings] Food allergy Unknown (qualifier value) [facility] (4 sources) predniSONE; Translations: [prednisone] Drug Allergy Unknown (qualifier value) [facility] Medications Current Medications Medication Drug Class(es) [...] Ordered Start: 12-21-2016 take 2 tablets by [facility] once daily Ibuprofen (Advil) 200 mg Tablet Active 2 TAB PO Daily December 21, 2016 12:00am Lactobacillus acidophilus (5 sources) Start: 09-10-2022 Acidophilus Se e Instructions, Refill(s) 0, 100 million every 24 hours orally Start Date: 09/10/22 Status: Ordered Start: 12-21-2016 take 1 tablet by [facility] once daily Lactobacillus Acidophilus (Acidophilus) Capsule Active [...] DAY, # 90 tab(s), Refills(s) 1, Pharmacy: [id number], 176.3, cm, 09/10/22 7:16:00 EDT, Height/Length Dosing, 109.8, kg, 09/10/22 7:16:00 EDT, Weight Dosing Start Date: 07/15/23 Status: Ordered Start: 10-22-2022 take 1 tablet by cayden [facility] once daily loratadine 10 mg Tab 10 mg = 1 tab(s), Oral, Daily, # 30 tab(s), Refills(s) 0, Pharmacy: [facility]/pharmacy #[id number], 176.3, cm, 09/10/22 7:16:00 [...] Refills(s) 0 Start Date: 09/10/22 Status: Ordered Problems Active Problems Problem Classification Problem Date [...] Onset: 10-20-2021 Episodic Other aftercare (1 source) nursing home (current) use of aspirin; 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] Onset: 10-20-2021 Episodic Other aftercare (1 source) Other rat exterminator (current) drug therapy; Translations: [OTH [facility] CURRENT DRUG THERAPY] Onset: 10-20-2021 Episodic Other male genital disorders (1 source) Disorder of prostate, unspecified; Translations: [DISORDER OF PROSTATE UNSPECIFIED] Onset: 10-29-2021 Episodic Residual codes; unclassified (1 source) Edema, unspecified; Translations: [EDEMA UNSPECIFIED] Onset: 10-29-2021 Episodic Residual codes; unclassified (1 source) Flushing; Translations: [FLUSHING] Onset: 10-20-2021 Episodic Results Test Name Value Interpretation Reference Range Facility RAD - Ultrasound Reporton RAD - Ultrasound Report [id number]#1. 00TIFF Normal [facility] Ambulatory Visit Summaryon 0 08-29-2023 Ambulatory Visit Summary SOLO JIMENEZ :1960 Visit Date:08/29/2023 Ambulatory Visit Instructions Your Diagnosis Hospital discharge follow-up Gastroenteritis Chronic cholecystitis Prostate cancer screening Vasovagal episode Class 1 obesity due to excess calories in adult Nonsmoker BMI 33.0-33.9,adult Your Care Team Attending Physician - Renee Shine MD Primary Care Physician - Renee Shine MD This Is Your Medications List aspirin [...] Follow-Up Appointments Saturday 8:15 AM EDT With: Renee Shine MD Where: [facility] [place] Normal [facility] CBC w/ Auto Diffon 4 Basophils/100 WBC (Bld) 1.4 % Normal 0.0-2.0 [facility] Comment on above: Performed By: #### 2 [id number] #### [facility] [address] [place] [address] Basophils/Leukocytes Auto (Bld) [Pure # fraction] 0.1 E9/L Normal 0.0-0.2 [facility] Comment on above: Performed By: #### 2 [id number] #### [facility] [address] [place] [address] Eosinophils (Bld) [#/Vol] 0.3 E9/L Normal 0.0-0.5 [facility] Comment on above: Performed By: #### 2 [id number] #### [facility] [address] [place] [address] Eosinophils/100 WBC (Bld) 4.7 % Normal 0.0-8.0 [facility] Comment on above: Performed By: #### 2 367113 #### [facility] [address] [place] [address] Erythrocyte distribution width (RBC) [Ratio] 13.2 % Normal 10.9-14.2 [facility] Comment on above: Performed By: #### 2 922194 #### [facility] [address] [place] [address] Hematocrit (Bld) [Volume fraction] 42.2 % Normal 37.7-49.0 [facility] Comment on above: Performed By: #### 2 [id number] #### [facility] [address] [place] [address] Hemoglobin (Bld) [Mass/Vol] 14.3 g/dL Normal 13.5-17.5 [facility] Comment on above: Performed By: #### 2 672688 #### [facility] [address] [place] [address] Lymphocytes (Bld) [#/Vol] 1.9 E9/L Normal 1.0-4.0 [facility] Comment on above: Performed By: #### 2 341066 #### [facility] [address] [place] [address] Lymphocytes/100 WBC (Bld) 31.2 % Normal 14.0-50.0 [facility] Comment on above: Performed By: #### 2 358688 #### [facility] [address] [place] [address] MCH (RBC) [Entitic mass] 29.5 pg Normal 27.0-34.0 [facility] Comment on above: Performed By: #### 2 374586 #### [facility] [address] [place] [address] MCHC (RBC) [Mass/Vol] 33.8 g/dL Normal 31.4-36.0 [facility] Comment on above: Performed By: #### 2 814454 #### [facility] [address] [place] [address] MCV (RBC) [Entitic vol] 87.4 fL Normal 80.0-100.0 [facility] Comment on above: Performed By: #### 2 403198 #### [facility] [address] [place] [address] Monocytes (Bld) [#/Vol] 0.3 E9/L Normal 0.2-1.0 [facility] Comment on above: Performed By: #### 2 257549 #### [facility] [address] [place] [address] Neutrophils (Bld) [#/Vol] 3.6 E9/L Normal 2.0-7.5 [facility] Comment on above: Performed By: #### 2 943221 #### [facility] [address] [place] [address] Neutrophils/100 WBC (Bld) 58.0 % Normal 36.0-75.0 [facility] Comment on above: Performed By: #### 2 911130 #### [facility] [address] [place] [address] Platelet mean volume (Bld) [Entitic vol] 8.4 fL Normal 6.4-10.8 [facility] Comment on above: Performed By: #### 2 258008 #### [facility] [address] [place] [address] Platelets (Bld) [#/Vol] 264.0 E9/L Normal 150.0-500.0 [facility] Comment on above: Performed By: #### 2 045479 #### [facility] [address] [place] [address] RBC (Bld) [#/Vol] 4.8 E12/L Normal 4.3-5.9 [facility] Comment on above: Performed By: #### 2 575411 #### [facility] [address] [place] [address] WBC corrected for nucl RBC Auto (Bld) [#/Vol] 6.1 E9/L Normal 4.0-11.0 [facility] Comment on above: Performed By: #### 2 141164 #### [facility] [address] [place] [address] CHEMISTRYOrdered By: SYSTEM SYSTEM on 08-29-2023 Albumin [...] used for this result was chemiluminescence using [employer]'s Access Hybritech PSA reagent. Protein [Mass/Vol] 6.4 [...] 08-29-2023 Albumin [Mass/Vol] 3.9 g/dL Normal 3.3-5.0 [facility] Comment on above: Performed By: #### 2 584270 #### [facility] [address] [place] [address] Albumin/Globulin (S) [Mass conc ratio] 1.6 Normal 1.1-2.2 [facility] Comment on above: Performed By: #### 2 996658 #### [facility] [address] [place] [address] ALP [Catalytic activity/Vol] 64 Int._Unit/L Normal 21-98 [facility] Comment on above: Performed By: #### 2 869119 #### [facility] [address] [place] [address] ALT No additional P-5'-P [Catalytic activity/Vol] 31 Int._Unit/L Normal 6-46 [facility] Comment on above: Performed By: #### 2 834022 #### [facility] [address] [place] [address] Anion gap [Moles/Vol] 11 mmol/L Normal 6-16 [facility] Comment on above: Performed By: #### 2 475531 #### [facility] [address] [place] [address] AST [Catalytic activity/Vol] 18 Int._Unit/L Normal 5-43 [facility] Comment on above: Performed By: #### 2 055537 #### [facility] [address] [place] [address] Bilirubin [Mass/Vol] 0.8 mg/dL Normal 0.0-1.1 [facility] Comment on above: Performed By: #### 2 004668 #### [facility] [address] [place] [address] Calcium [Mass/Vol] 8.7 mg/dL Low 8.9-11.1 [facility] Comment on above: Performed By: #### 2 458640 #### [facility] [address] [place] [address] Chloride [Moles/Vol] 106 mmol/L Normal 101-111 [facility] Comment on above: Performed By: #### 2 849133 #### [facility] [address] [place] [address] CO2 [Moles/Vol] 25 mmol/L Normal 21-31 [facility] Comment on above: Performed By: #### 2 925426 #### [facility] [address] [place] [address] Creatinine [Mass/Vol] 0.9 mg/dL Normal 0.5-1.3 [facility] Comment on above: Performed By: #### 2 692185 #### [facility] [address] [place] [address] Globulin (S) [Mass/Vol] 2.5 g/dL Normal 1.4-4.0 [facility] Comment on above: Performed By: #### 2 844602 #### [facility] [address] [place] [address] Glucose [Mass/Vol] 140 mg/dL Normal 55-199 [facility] Comment on above: Performed By: #### 2 466398 #### [facility] [address] [place] [address] Potassium [Moles/Vol] 4.4 mmol/L Normal 3.5-5.3 [facility] Comment on above: Performed By: #### 2 712635 #### [facility] [address] [place] [address] Protein [Mass/Vol] 6.4 g/dL Normal 6.0-7.8 [facility] Comment on above: Performed By: #### 2 783967 #### [facility] [address] [place] [address] Sodium [Moles/Vol] 138 mmol/L Normal 135-145 [facility] Comment on above: Performed By: #### 2 713744 #### [facility] [address] [place] [address] Urea nitrogen [Mass/Vol] 18 mg/dL Normal 5-21 [facility] Comment on above: Performed By: #### 2 162685 #### [facility] [address] [place] [address] Urea nitrogen/Creatinine [Mass ratio] 20 No Units Normal 10-20 [facility] Comment on above: Performed By: #### 2 688310 #### [facility] [address] [place] [address] Family Medicine Office/Clini c Noteon 08-29-2023 Family Medicine Office/Clinic Note HPI Staff Solo is a 63 year old male presenting for hospital follow up Hospital: [facility] Admission date: Discharge date: 08/23/23 Symptoms the [...] CBC w/ Auto Diff Comprehensive Metabolic Panel [facility] Internal Ambulatory Referral PSA Screen, Total TSH With T4fr Reflex 2. Gastroenteritis (K52.9: Noninfective gastroenteritis and colitis, unspecified) - Resolved Ordered: CBC w/ Auto Diff Comprehensive Metabolic Panel [facility] [place] Internal Ambulatory Referral PSA Screen, Total TSH With T4fr Reflex 3. Chronic cholecystitis (K81.1: Chronic cholecystitis) - Will request US - No issues at this time. - Will refer to Ordered: CBC w/ Auto Diff Comprehensive Metabolic Panel [facility] [place] Internal Ambulatory Referral PSA Screen, Total TSH With T4fr Reflex 4. Prostate cancer screening (Z12.5: Encounter for screening for malignant neoplasm of prostate) - Will screen today Ordered: CBC w/ Auto Diff Comprehensive Metabolic Panel [facility] [place] Internal Ambulatory Referral PSA Screen, Total TSH With T4fr Reflex 5. Vasovagal episode (R55: Syncope and collapse) - Continue to hydrate - Monitor for arrythmias Ordered: CBC w/ Auto Diff Comprehensive Metabolic Panel [facility] [place] Internal Ambulatory Referral PSA Screen, Total TSH [...] Mother. Immunizations Vaccine Date Status Comments SARSCoV2 mRNA(nhagnbupc-gtqp-z ucros) vac 09/26/2021 Recorded influenza virus vaccine, inactivated 01/26/2021 Recorded SARS-CoV-2 (COVID-19) mRNA BNT-162b2 vax 01/26/2021 Recorded 2022-09-10: TPV60 diphtheria/pertussis, acel/tetanus adult 09/16/2020 Recorded SARS-CoV-2 (COVID-19) mRNA BNT-162b2 vax 06/28/2020 Recorded SARS-CoV-2 (COVID-19) mR (more content not included)... Normal [facility] Comment on above: Result Comment: Elec tronically Signed By: Holger PATRICIA, Renee Fosterbr\Date and Time Signed: 08/29/23 08:08 EDT HEMATOLOGYOrdered [...] specific Ag [Mass/Vol] 0.8 ng/mL Normal 0.1-3.5 [facility] Comment on above: Result Comment: The concentration of PSA determined by different manufacturers can vary due to differences in assay methods and reagent specificity. Values obtained from different assay methods cannot be used interchangeably. The methodology used for this result was chemiluminescence using [employer]'s Access Hybritech PSA reagent. Performed By: #### 1 [id number] #### [facility] [address] [place] [address] TSH With T4fr Reflexon 08-28 TSH Qn 1.06 m[IU]/L Normal 0.34-5.60 [facility] Comment on above: Performed By: #### 1 [id number] #### [facility] [address] [place] [address] eGFRon 08-29-2023 eGFR 95 mL/min/1.73 m2 Normal >=59 [facility] Comment on above: Order Comment: Order added by Discern Expert. Performed By: #### 1 [id number] #### [facility] [address] [place] [address] ECG 12-Leadon 08-26-2023 ECG 12-Lead [id number]#1. 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 [...] (min): 1 Outcome: Left message-voicemail Contact Type: community sports coordinator Contact Name: Justo Herndon Notes: TCM#1- left vm for return call. Created By: Justo Herndon [facility] RAD - Ultrasound Reporton RAD - Ultrasound Report [id number]#1. 00TIFF [facility] ED Note-Physicianon 08-22-19 ED Note-Physician [id number]#1. 00TIFF [facility] RAD - MISCon 08-22-2023 RAD - MISC [id number]#1 .00TIFF [facility] Consultation Noteon 01-25-20 Consultation Note [id number]#1. 00TIFF Normal [facility] MRI Knee w/o Contrast Righto n [...] by: DAYANNA Technologist: HYUN Technical Comments None [facility] Consent for Treatmenton 12-23 Consent for Treatment [id number]#1 .00TIFF [facility] RAD - MRI Screening Formon 1 RAD - MRI Screening Form [id number]# 1.00TIFF [facility] Physician Orderon 12-21-2022 Physician Order [id number]#1 .00CD:127 Normal [facility] Consultation Noteon 12-06-19 23 Consultation Note [id number]#1. 00CD:127 Normal [facility] Discharge Note - PTon 2022 Discharge Note - PT [id number]#1. 00CD:127 Normal [facility] Physician Referralon 023 Physician Referral [id number]# 1.00CD:127 Normal [facility] Insurance Correspondenceon 0 11-13-2022 Insurance Correspondence [id number]# 1.00CD:127 Normal [facility] Auto Diffon 11-06-2022 Basophils/100 WBC (Bld) 0.9 % Normal 0.0-2.0 [facility] Comment on above: Order Comment: Order Added by Discern Expert. Performed By: #### 2 069872, 12141385, 6426805, 6660765, 15536031, 2215712, 34345076 ####[address] [place] [address] Basophils/Leukocytes Auto (Bld) [Pure # fraction] 0.0 E9/L Normal 0.0-0.2 [facility] Comment on above: Order Comment: Order Added by Discern Expert. Performed By: #### 2 479526, 78485425, 3267873, 1414760, 02936479, 4360283, 57682196 ####[address] [place] [address] Eosinophils/100 WBC (Bld) 6.4 % Normal 0.0-8.0 [facility] Comment on above: Order Comment: Order Added by Discern Expert. Performed By: #### 2 008004, 61669176, 9105107, 5975351, 87975628, 1307521, 87720953 ####[address] [place] [address] Eosinophils/Leukocytes Auto (Bld) [Pure # fraction] 0.3 E9/L Normal 0.0-0.5 [facility] Comment on above: Order Comment: Order Added by Discern Expert. Performed By: #### 2 059813, 45135132, 4495768, 6690367, 96200394, 8750588, 82104621 ####[address] [address] Lymphocytes/100 WBC (Bld) 29.6 % Normal 14.0-50.0 [facility] Comment on above: Order Comment: Order Added by Discern Expert. Performed By: #### 2 429262, 37772960, 8397311, 8507989, 91437213, 8169877, 61407690 ####[address] [address] Lymphocytes/Leukocytes Auto (Bld) [Pure # fraction] 1.6 E9/L Normal 1.0-4.0 [facility] Comment on above: Order Comment: Order Added by Discern Expert. Performed By: #### 2 549604, 84412946, 5990841, 7532127, 02924677, 4133769, 45670862 ####[address] [place] [address] Monocytes/100 WBC (Bld) 8.2 % Normal 4.0-14.0 [facility] Comment on above: Order Comment: Order Added by Discern Expert. Performed By: #### 2 526661, 75705907, 7353962, 9301837, 56481159, 4969772, 01536410 ####[address] [place] [address] Monocytes/Leukocytes Auto (Bld) [Pure # fraction] 0.4 E9/L Normal 0.2-1.0 [facility] Comment on above: Order Comment: Order Added by Discern Expert. Performed By: #### 2 655215, 66342582, 2948601, 9167292, 56889402, 9262500, 51642550 ####[address] [place] [address] Neutrophils/100 WBC (Bld) 54.9 % Normal 36.0-75.0 [facility] Comment on above: Order Comment: Order Added by Discern Expert. Performed By: #### 2 055206, 04517624, 7494895, 0579247, 49535379, 9947899, 25890142 ####[address] [address] Neutrophils/Leukocytes Auto (Bld) [Pure # fraction] 3.0 E9/L Normal 2.0-7.5 [facility] Comment on above: Order Comment: Order Added by Discern Expert. Performed By: #### 2 079049, 69741028, 4978665, 5237084, 58844051, 8561469, 33629703 ####[address] [address] CBC w/ Auto Diffon 3 Erythrocyte distribution width (RBC) [Ratio] 13.4 % Normal 10.9-14.2 [facility] Comment on above: Performed By: #### 2 033772, 56902998, 3654042, 3022109, 56279750, 6751131, 79239394 ####[address] [place] [address] Hematocrit (Bld) [Volume fraction] 44.0 % Normal 37.7-49.0 [facility] Comment on above: Performed By: #### 2 390444, 15990020, 1766953, 5914582, 92611236, 8181952, 56171666 ####[facility] [id number] [place] [address] Hemoglobin (Bld) [Mass/Vol] 14.8 g/dL Normal 13.5-17.5 [facility] Comment on above: Performed By: #### 2 239526, 93858804, 7352008, 8994109, 63200496, 8986190, 61839071 ####[facility] [address] [place] [address] MCH (RBC) [Entitic mass] 29.5 pg Normal 27.0-34.0 [facility] Comment on above: Performed By: #### 2 958634, 71206575, 8730786, 4341228, 82427396, 5562717, 15607136 ####[address] [address] MCHC (RBC) [Mass/Vol] 33.7 g/dL Normal 31.4-36.0 [facility] Comment on above: Performed By: #### 2 868319, 20287017, 9537638, 7120041, 08037115, 0269974, 71278582 ####[address] [address] MCV (RBC) [Entitic vol] 87.7 fL Normal 80.0-100.0 [facility] Comment on above: Performed By: #### 2 836836, 18001913, 9166190, 9449379, 04590062, 7353525, 61662317 ####[address] [place] [address] Platelet mean volume (Bld) [Entitic vol] 9.1 fL Normal 6.4-10.8 [facility] Comment on above: Performed By: #### 2 650095, 83852076, 5036827, 2309136, 62767714, 5646139, 22196776 ####[facility] [address] [place] [address] Platelets (Bld) [#/Vol] 232.0 E9/L Normal 150.0-500.0 [facility] Comment on above: Performed By: #### 2 754756, 91445306, 1477538, 2303577, 47808265, 2096306, 45915908 ####[facility] [address] [place] [address] RBC (Bld) [#/Vol] 5.0 E12/L Normal 4.3-5.9 [facility] Comment on above: Performed By: #### 2 476911, 79737336, 8441503, 9750792, 65504554, 8138171, 89121888 ####[facility] [address] [place] [address] WBC corrected for nucl RBC Auto (Bld) [#/Vol] 5.5 E9/L Normal 4.0-11.0 [facility] Comment on above: Performed By: #### 2 068400, 87775915, 5050217, 8783644, 36669365, 8219311, 86965989 ####[facility] [address] [place] [address] CHEMISTRYOrdered By: SYSTEM SYSTEM on 11-06-2022 Albumin [Mass/Vol] 4.1 g/dL Normal 3.3 - 5.0 gm/dL FT Remisol Albumin/Globulin [Mass ratio] 1.5 {ratio} Normal 1.1 - 2.2 FT Remisol ALP [Catalytic activity/Vol] 58 [iU]/d Normal 21 - 98 Int._Unit/L [facility] Remisol ALT No additional P-5'-P [Catalytic activity/Vol] 36 [iU]/d Normal 6 - 46 Int._Unit/L [facility] Remisol Anion gap [Moles/Vol] 12 mmol/L Normal 6 - 16 mEq/L F [facility] Remisol AST [Catalytic activity/Vol] 24 [iU]/d Normal 5 - 43 Int._Unit/L FT Remisol Bilirubin [Mass/Vol] 1.1 mg/dL Normal 0.0 [...] ratio] 17 mg/mg Normal 10 - 20 [facility] [place] Remisol CMPon 11-06-2022 Albumin [Mass/Vol] 4.1 g/dL Normal 3.3-5.0 [facility] Comment on above: Performed By: #### 2 600605, 07972903, 0165474, 8382873, 73847504, 1545815, 76152288 ####[facility] [address] [place] [address] Albumin/Globulin (S) [Mass conc ratio] 1.5 Normal 1.1-2.2 [facility] Comment on above: Performed By: #### 2 135449, 56864560, 3376229, 6158055, 06146247, 9776971, 70094945 ####[facility] [address] [place] [address] ALP [Catalytic activity/Vol] 58 Int._Unit/L Normal 21-98 [facility] Comment on above: Performed By: #### 2 499154, 86339170, 1568953, 6907892, 95883563, 4719773, 04206388 ####[facility] [address] [place] [address] ALT No additional P-5'-P [Catalytic activity/Vol] 36 Int._Unit/L Normal 6-46 [facility] Comment on above: Performed By: #### 2 784912, 69014775, 2316513, 3754075, 36311961, 3666769, 06075331 ####[facility] [address] [place] [address] Anion gap [Moles/Vol] 12 mmol/L Normal 6-16 [facility] Comment on above: Performed By: #### 2 259138, 73621753, 1480084, 1525723, 41658033, 8766049, 90510320 ####[facility] [address] [place] [address] AST [Catalytic activity/Vol] 24 Int._Unit/L Normal 5-43 [facility] Comment on above: Performed By: #### 2 729498, 40021971, 9817573, 0642855, 16955205, 2850297, 43529602 ####[facility] [address] [place] [address] Bilirubin [Mass/Vol] 1.1 mg/dL Normal 0.0-1.1 [facility] Comment on above: Performed By: #### 2 213675, 21037223, 0854750, 2208091, 85158181, 0564258, 38653837 ####[facility] [address] [place] [address] Calcium [Mass/Vol] 9.3 mg/dL Normal 8.9-11.1 [facility] Comment on above: Performed By: #### 2 398976, 82654061, 5641329, 7237542, 12341227, 3132003, 07232480 ####[facility] [address] [place] [address] Chloride [Moles/Vol] 109 mmol/L Normal 101-111 [facility] Comment on above: Performed By: #### 2 489497, 62639386, 6314873, 3620614, 04657717, 8997576, 03555057 ####[facility] [address] [place] [address] CO2 [Moles/Vol] 23 mmol/L Normal 21-31 [facility] Comment on above: Performed By: #### 2 506042, 74798332, 2058325, 8682551, 59701712, 1929823, 89231760 ####[facility] [address] [place] [address] Creatinine [Mass/Vol] 1.0 mg/dL Normal 0.5-1.3 [facility] Comment on above: Performed By: #### 2 211342, 93430186, 4127463, 6742047, 19765934, 0256150, 78268361 ####[facility] [address] [place] [address] Globulin (S) [Mass/Vol] 2.8 g/dL Normal 1.4-4.0 [facility] Comment on above: Performed By: #### 2 339895, 11506169, 6718227, 3384099, 86320478, 7886560, 81488188 ####[facility] [address] [place] [address] Glucose [Mass/Vol] 100 mg/dL Normal 55-199 [facility] Comment on above: Result Comment: If t his glucose result represents a fasting glucose, interpretation should refer to the following reference range: 55-99 mg/dL Performed By: #### 2 832536, 18360967, 7545303, 1333406, 26119554, 7669866, 10089438 ####[facility] [address] [place] [address] Potassium [Moles/Vol] 4.4 mmol/L Normal 3.5-5.3 [facility] Comment on above: Performed By: #### 2 921881, 35623013, 5743145, 6884378, 43068539, 5686194, 44297223 ####[facility] [address] [place] [address] Protein [Mass/Vol] 6.9 g/dL Normal 6.0-7.8 [facility] Comment on above: Performed By: #### 2 194335, 05622984, 1333832, 9243121, 49691993, 8791217, 30235355 ####[facility] [address] [place] [address] Sodium [Moles/Vol] 140 mmol/L Normal 135-145 [facility] Comment on above: Performed By: #### 2 583275, 05118764, 7889739, 6279296, 29828063, 5541227, 99323305 ####[facility] [address] [place] [address] Urea nitrogen [Mass/Vol] 17 mg/dL Normal 5-21 [facility] Comment on above: Performed By: #### 2 292629, 39300954, 4515899, 6094694, 41176900, 7025435, 91397753 ####[facility] [address] [place] [address] Urea nitrogen/Creatinine [Mass ratio] 17 No Units Normal 10-20 [facility] Comment on above: Performed By: #### 2 507900, 83464056, 8812240, 3885902, 46693752, 5709426, 03247045 ####[facility] [address] [place] [address] HEMATOLOGYOrdered By: SYSTEM SYSTEM on 11-06-2022 Basophils/100 [...] 14.8 g/dL Normal 13.5 - 17.5 gm/dL FT HemeAutoSS MCH (RBC) [Entitic mass] 29.5 pg Normal 27.0 - 34.0 pg FT HemeAutoSS MCHC (RBC) [Mass/Vol] 33.7 g/dL Normal 31.4 - 36.0 gm/dL FT HemeAutoSS MCV (RBC) [Entitic vol] 87.7 fL Normal 80.0 - 100.0 fL [facility] HemeAutoSS Platelet mean volume (Bld) [Entitic vol] 9.1 fL Normal 6.4 - 10.8 fL FT HemeAutoSS Platelets (Bld) [#/Vol] 232.0 E9/L Normal 150.0 - 500.0 E9/L FT HemeAutoSS RBC (Bld) [#/Vol] 5.0 E12/L Normal 4.3 - 5.9 E12/L FT HemeAutoSS WBC corrected for nucl RBC Auto (Bld) [#/Vol] 5.5 E9/L Normal 4.0 - 11.0 E9/L FT HemeAutoSS Lipid Panelon 11-06-2022 Cholesterol [Mass/Vol] 207 mg/dL High 120-200 [facility] Comment on above: Performed By: #### 2 988192, 50301701, 5309646, 2176214, 91173322, 3275607, 14541481 ####[facility] [address] [place] [address] Cholesterol in HDL [Mass/Vol] 45 mg/dL Invalid Interpretation Code [facility] Comment on above: Result Comment: HDL > or equal to 60 mg/dL: Low cardiovascular risk HDL < 40 mg/dL : High cardiovascular risk Performed By: #### 2 094883, 73427740, 8377718, 8887064, 34716378, 0103997, 90124652 ####[facility] [address] [place] [address] Cholesterol in LDL [Mass/Vol] 135 mg/dL High <=129 [facility] Comment on above: Performed By: #### 2 487457, 77105182, 0398491, 4303168, 58211851, 6660291, 60343104 ####[facility] [address] [place] [address] Cholesterol in VLDL [Mass/Vol] 22 mg/dL Normal 7-40 [facility] Comment on above: Performed By: #### 2 954857, 38443556, 7494861, 8943847, 91516742, 9409465, 96579823 ####[facility] [address] [place] [address] Triglyceride [Mass/Vol] 108 mg/dL Normal <=149 [facility] Comment on above: Performed By: #### 2 087459, 12859993, 7572924, 8185661, 70508587, 3596993, 93182598 ####[facility] [address] [place] [address] Nurse Consultation Noteon Nurse Consultation Note Reason [...] influenza virus vaccine, inactivated 01/05/2019 Recorded Normal [facility] PSA Screen, Totalon 11-07-19 23 Prostate specific Ag [Mass/Vol] 0.6 ng/mL Normal 0.1-3.5 [facility] Comment on above: Result Comment: The concentration of PSA determined by different manufacturers can vary due to differences in assay methods and reagent specificity. Values obtained from different assay methods cannot be used interchangeably. The methodology used for this result was chemiluminescence using [employer]'s [employer] Hybritech PSA reagent. Performed By: #### 2 511183, 59967641, 1985453, 1523454, 20253689, 8617537, 39837060 ####[facility] [address] [place] [address] TSH With T4fr Reflexon 11-06 TSH Qn 0.66 m[IU]/L Normal 0.34-5.60 [facility] Comment on above: Performed By: #### 2 314634, 56412800, 0469360, 2876019, 01923927, 1828325, 08646073 ####[facility] [address] [place] [address] eGFRon 11-06-2022 GFR/1.73 sq M.predicted among non-blacks MDRD (S/P/Bld) [Vol rate/Area] 85 mL/min/1.73 m2 Normal >=59 [facility] Comment on above: Order Comment: Order added by Discern Expert. Result Comment: Feller Operator raul kidney disease could be indicated at eGFR's of less than 60 mL/min/1.73m2. Kidney failure is indicated at less than 15 mL/min/1.73m2. Performed By: #### 2 350689, 63736438, 3139653, 0868143, 60807410, 6843712, 09426264 ####[facility] [address] [place] [address] XR Knee Complete 4+ Views Naima boyer 11-02-2022 XR Knee Complete 4+ Views Right [...] or other posttraumatic complication identified. Ordering Provider: Renee Shine FINAL REPORT Dictated: 11/02/2022 2:55 pm Robin Avila MD Signed (Electronic Signature): 11/02/2022 2:55 pm Signed by: Robin Avila MD Transcribed by: DAYANNA Technologist: ROMIE Technical Comments Radiation Dose: Ka,r in mGy = na DAP = na [facility] Consent for Treatmenton Consent for Treatment [id number]#1 .00CD:127 [facility] Insurance Correspondenceon 0 10-30-2022 Insurance Correspondence [id number]# 1.00CD:127 [facility] PT - Progress Noteson 2022 PT - Progress Notes [id number]#1 .00CD:127 [facility] Retail - Clinical Noteon Retail - Clinical Note [id number]#1 .00CD:127 [facility] PT - Progress Noteson 2022 PT - Progress Notes [id number]#1 .00CD:127 [facility] US THYROIDon 07-31-2022 US THYROID EXAMINATION: US [...] ISAIAH CARO Date: 2022-07-31 09:29 Normal [facility] US THYROID FN ASP BXon 04-12 US THYROID FN ASP BX Begin Addendum #1 COLLECTED DATE/TIME: 04/05/2022, 12:57 EST Final Diagnosis Report for [facility] [place], [place] (A/B) RIGHT THYROID NODULE, ULTRASOUND-GUIDED FINE [...] (FNA). 2. Pathology results are pending. Normal [facility] US THYROIDon 02-20-2022 US THYROID EXAMINATION: US [...] interval change, consider fine-needle aspiration TI-RADS: The [employer] TI-RADS committee's white paper recommendations for thyroid lesions classified as TR5 (highly suspicious) are listed below: > 0.5 cm. Annual ultrasound follow-up for up to 5 years. > 1.0 cm. FNA. J. Am Shelli Radiol 2017;14:587-595. Electronically authenticated by: CHRIS HOLLEY Date: 2022-02-20 13:51 Normal [facility] 12-29-2021 L - -------- Specimen: [id number] Received: 12/29/21 Status: JORDI Boyd Num: [id number] Spec Type: Surgical Subm Dr: Jairo Nick MD Tissues: A Colon Biopsy (SIGMOID) Procedures: HE Stain/2, Gross/Micro L4 -------- Age/ Patient Sex Location Account Attending Physician -------- Solo Jimenez /[facility] [id number] Jairo Nick MD -------- SPEC NUM: [id number] RECD: 12/29/21 STATUS: JORDI BOYD NUM: [id number] SHELLI: 12/29/21 DR: Jairo Nick MD ENTERED: 12/29/[address] [facility] [address]: MAURILIO TYPE: Surgical DEPT: S ORDERED: HE Stain/2, [...] pathologic diagnosis. This case is interpreted at [facility], [place] [address]. -------- Specimen: [id number] Received: 12/29/21 Status: JORDI Boyd Num: [id number] Spec Type: Surgical Subm Dr: Jairo Nick MD Tissues: A Colon Biopsy (SIGMOID) Procedures: HE Stain/2, Gross/Micro L4 -------- Patient: Solo Jimenez [id number] (Continued) -------- Specimen: [id number] Received: 12/29/21 (Continued) Signed (signature on file) Fredrick Lee MD 01/02/22 0857 -------- Specimen: [id number] Received: 12/29/21 Status: JORDI Boyd Num: [id number] Spec Type: Surgical Subm Dr: Jairo Nick MD Tissues: A Colon Biopsy (SIGMOID) Procedures: HE Stain/2, Gross/Micro L4 -------- Patient: Solo Jimenez [id number] (Continued) -------- Specimen: [id number] Received: 12/29/21 (Continued) CPT Codes 29439 -------- -------- Specimen: [id number] Received: 12/29/21 Status: JORDI Boyd Num: [id number] Spec Type: Surgical Subm Dr: Jairo Nick MD Tissues: A Colon Biopsy (SIGMOID) Procedures: HE Stain/2, Gross/Micro L4 -------- Patient: Solo Jimenez [id number] (Continued) -------- Signed (signature on file) Fredrick Lee MD 01/02/22 0857 [facility] COVID-19 Antigenon 2 COVID-19 Antigen Healthcare Worker?: [...] signs and symptoms consistent with COVID-19. The [employer] SARS Antigen TAHIR does not differentiate between SARS-CoV and SARS-CoV-2. This test was developed and its performance characteristic determined by [employer] and validated at [facility]. This test has not been FDA [...] for SARS Antigen by [employer]AHIR PERFORMED BY: [place] [address] PATHOLOGIST PATHOLOGY MANAGER LOS FRANCIS M.D. Normal [facility] Comment on above: Performed By: #### S OFIANEG, COVID-19 KOKO #### [address] COVID-19 SOFIAOrdered By: Ronit Nick on 12-27-2021 SARS-CoV+SARS-CoV-2 (COVID-19) Ag IA.rapid Ql (Resp) Negative Negative [facility] Comment on above: This is a duplicate [employer] SARS Antigen (TAHIR) result to be used for statistical tracking purpose only. No Panel InformationOrdered By: Jairo Nick on 12-27-2021 SARS Antigen (LFIA) [facility] Koko Ag Negativeon 12-28-19 22 Koko Ag Negative Negative Normal Negative [facility] Comment on above: Result Comment: This is a duplicate [employer] SARS Antigen (TAHIR) result to be used for statistical tracking purpose only. PERFORMED BY: [place] [address] PATHOLOGIST PATHOLOGY MANAGER LOS FRANCIS M.D. Performed By: #### S OFIANEG, COVID-19 KOKO #### [facility] [address] CBC AUTO DIFFon 10-25-2021 BASO # 0.1 103/ul Normal 0.0-0.1 [facility] Comment on above: Performed By: #### C BC #### [facility] [address] [address] [address] Kareem Roldan Basophils/100 WBC (Bld) 1.2 % Normal 0.2-2.0 [facility] Comment on above: Performed By: #### C BC #### [facility] [address] [address] [address] Kareem Roldan EO # 0.3 103/ul Normal 0.0-0.7 [facility] Comment on above: Performed By: #### C BC #### [facility] [address] [place] [address] Dr. Kareem Roldan Eosinophils/100 WBC (Bld) 5.0 % Normal 0.9-7.0 [facility] Comment on above: Performed By: #### C BC #### [facility] [address] [address] [address] Kareem Roldan Erythrocyte distribution width (RBC) [Ratio] 12.2 % Normal 11.0-15.0 [facility] Comment on above: Performed By: #### C BC #### [facility] [address] [place] [address] Dr. Kareem Roldan Hematocrit (Bld) [Volume fraction] 43.3 % Normal 42.0-54.0 [facility] Comment on above: Performed By: #### C BC #### [facility] [address] [address] [address] Kareem Roldan Hemoglobin (Bld) [Mass/Vol] 14.7 g/dL Normal 14.0-18.0 [facility] Comment on above: Performed By: #### C BC #### [facility] [address] [address] [address] Kareem Roldan IG # 0.04 10e3/ul Critically high 0.00-0.03 [facility] Comment on above: Performed By: #### C BC #### [facility] [address] [place] [address] Dr. Kareem Roldan IG % 0.6 % Critically high 0.0-0.[address] [facility] Comment on above: Performed By: #### C BC #### [facility] [address] [place] [address] Dr. Kareem Roldan LYMPH # 1.7 103/ul Normal 1.2-3.8 [facility] Comment on above: Performed By: #### C BC #### [facility] [address] [place] [address] Dr. Kareem Roldan Lymphocytes/100 WBC (Bld) 25.3 % Normal 20.5-60.0 [facility] Comment on above: Performed By: #### C BC #### [facility] [address] [place] [address] Dr. Kareem Roldan MANUAL DIFF REQ NO Normal [facility] Comment on above: Performed By: #### C BC #### [facility] [address] [place] [address] Dr. Kareem Roldan MCH (RBC) [Entitic mass] 29.3 pg Normal 25.9-34.0 [facility] Comment on above: Performed By: #### C BC #### [facility] [address] [place] [address] Dr. Kareem Roldan MCHC (RBC) [Mass/Vol] 33.9 g/dL Normal 29.9-35.2 [facility] Comment on above: Performed By: #### C BC #### [facility] [address] [place] [address] Dr. Kareem Roldan MCV (RBC) [Entitic vol] 86.4 fL Normal 80.0-94.0 [facility] Comment on above: Performed By: #### C BC #### [facility] [address] [place] [address] Dr. Kareem Roldan MONO # 0.6 103/ul Normal 0.3-0.8 [facility] Comment on above: Performed By: #### C BC #### [facility] [address] [place] [address] Dr. Kareem Roldan Monocytes/100 WBC (Bld) 8.4 % Normal 1.7-12.0 [facility] Comment on above: Performed By: #### C BC #### [facility] [address] [place] [address] Dr. Kareem Roldan NEUT # 4.0 103/ul Normal 1.4-6.5 [facility] Comment on above: Performed By: #### C BC #### [facility] [address] [place] [address] Dr. Kareem Roldan Neutrophils/100 WBC (Bld) 59.5 % Normal 43.0-75.0 [facility] Comment on above: Performed By: #### C BC #### [facility] [address] [place] [address] Dr. Kareem Roldan Platelet mean volume (Bld) [Entitic vol] 9.8 fL Normal 9.5-13.5 [facility] Comment on above: Performed By: #### C BC #### [facility] [address] [place] [address] Dr. Kareem Roldan PLT 226 103/ul Normal 150-450 [facility] Comment on above: Performed By: #### C BC #### [facility] [address] [place] [address] Dr. Kareem Roldan RBC 5.01 106/ul Normal 4.70-6.10 [facility] Comment on above: Performed By: #### C BC #### [facility] [address] [place] [address] Dr. Kareem Roldan WBC 6.7 103/ul Normal 4.0-11.0 [facility] Comment on above: Performed By: #### C BC #### [facility] [address] [place] [address] Dr. Kareem Roldan FREE T3on 10-25-2021 FREE T3 3.31 pg/mlL Normal 2.18-3.98 [facility] Comment on above: Performed By: #### L IPID, FT3, CMP, TSH #### [facility] [address] [address] [address] Kareem Roldan FREE T4on 10-25-2021 Free T4 [Mass/Vol] 1.27 ng/dL Normal 0.76-1.46 [facility] Comment on above: Performed By: #### F T4, PSAD #### [facility] [address] [address] [address] Kareem Roldan LIPID PROFILEon 10-25-2021 CHOL-HDL RATIO NORM SEE BELOW Normal [facility] Comment on above: Result Comment: 3.3 - 4.4 LOW RISK 4.4 - 7.1 AVERAGE RISK 7.1 - 11.0 MODERATE RISK >11.0 HIGH RISK Performed By: #### L IPID, FT3, CMP, TSH #### [facility] [address] [place] [address] Dr. Kareem Roldan Cholesterol [Mass/Vol] 200 mg/dL Normal <=200 [facility] Comment on above: Performed By: #### L IPID, FT3, CMP, TSH #### [facility] [address] [place] [address] Dr. Kareem Roldan Cholesterol in HDL [Mass/Vol] 44 mg/dL Normal 40-60 [facility] Comment on above: Performed By: #### L IPID, FT3, CMP, TSH #### [facility] [address] [address] [address] Kareem Roldan Cholesterol in LDL [Mass/Vol] 119.6 mg/dL Normal [facility] Comment on above: Performed By: #### L IPID, FT3, CMP, TSH #### [facility] [address] [place] [address] Dr. Kareem Roldan Cholesterol.total/Chol esterol in HDL [Mass ratio] 4.5 {ratio} Normal [facility] Comment on above: Performed By: #### L IPID, FT3, CMP, TSH #### [facility] [address] [address] [address] Kareem Roldan HDL NORMAL > or = 60 mg/dl - LO W CARDIOVASCULAR RISK <40 mg/dl - HIGH CARDIOVASCULAR RISK Normal [facility] Comment on above: Performed By: #### L IPID, FT3, CMP, TSH #### [facility] [address] [address] [address] Kareem Roldan LDL CALC NORMAL SEE BELOW Normal [facility] Comment on above: Result Comment: <100 mg/dl OPTIMAL 100 - 129 mg/dl NEAR OR ABOVE OPTIMAL 130 - 159 mg/dl BORDERLINE HIGH 160 - 189 mg/dl HIGH >190 mg/dl VERY HIGH Performed By: #### L IPID, FT3, CMP, TSH #### [facility] [address] [address] [address] Kareem Roldan Triglyceride [Mass/Vol] 182 mg/dL Critically high <=150 [facility] Comment on above: Performed By: #### L IPID, FT3, CMP, TSH #### [facility] [address] [address] [address] Kareem Roldan VLDL CALC 36.4 mg/dL Normal [facility] Comment on above: Performed By: #### L IPID, FT3, CMP, TSH #### [facility] [address] [address] [address] Kareem Roldan PROF 14(COMP METB)on 022 Albumin [Mass/Vol] 3.6 g/dL Normal 3.4-5.0 [facility] Comment on above: Performed By: #### L IPID, FT3, CMP, TSH #### [facility] [address] [address] [address] Kareem Roldan Albumin/Globulin [Mass ratio] 1.2 {ratio} Normal [facility] Comment on above: Performed By: #### L IPID, FT3, CMP, TSH #### [facility] [address] [address] [address] Kareem Roldan ALP [Catalytic activity/Vol] 70 U/L Normal 46-116 [facility] Comment on above: Performed By: #### L IPID, FT3, CMP, TSH #### [facility] [address] [address] [address] Kareem Roldan ALT [Catalytic activity/Vol] 35 U/L Normal 16-63 [facility] Comment on above: Performed By: #### L IPID, FT3, CMP, TSH #### [facility] [address] [address] [address] Kareem Roldan Anion gap [Moles/Vol] 10.4 mmol/L Normal Th e [facility] Comment on above: Performed By: #### L IPID, FT3, CMP, TSH #### [facility] [address] [place] [address] Dr. Kareem Roldan AST [Catalytic activity/Vol] 15 U/L Normal 15-37 [facility] Comment on above: Performed By: #### L IPID, FT3, CMP, TSH #### [facility] [address] [place] [address] Dr. Kareem Roldan Bilirubin [Mass/Vol] 0.9 mg/dL Normal 0.2-1.0 [facility] Comment on above: Performed By: #### L IPID, FT3, CMP, TSH #### [facility] [address] [address] [address] Kareem Roldan Calcium [Mass/Vol] 8.8 mg/dL Normal 8.5-10.1 [facility] Comment on above: Performed By: #### L IPID, FT3, CMP, TSH #### [facility] [address] [place] [address] Dr. Kareem Roldan Chloride [Moles/Vol] 104 mmol/L Normal 98-107 [facility] Comment on above: Performed By: #### L IPID, FT3, CMP, TSH #### [facility] [address] [place] [address] Dr. Kareem Roldan CO2 [Moles/Vol] 30.7 mmol/L Normal 21.0-32.0 [facility] Comment on above: Performed By: #### L IPID, FT3, CMP, TSH #### [facility] [address] [place] [address] Dr. Kareem Roldan Creatinine [Mass/Vol] 0.95 mg/dL Normal 0.70-1.30 [facility] Comment on above: Performed By: #### L IPID, FT3, CMP, TSH #### [facility] [address] [address] [address] Kareem Roldan EGFR-AF [place] >60 Normal >=60 [facility] Comment on above: Performed By: #### L IPID, FT3, CMP, TSH #### [facility] [address] [address] [address] Kareem Roldan EGFR-NON AF [place] >60 Normal >=60 [facility] Comment on above: Performed By: #### L IPID, FT3, CMP, TSH #### [facility] [address] [address] [address] Kareem Roldan Globulin (S) [Mass/Vol] 3.1 g/dL Normal [facility] Comment on above: Performed By: #### L IPID, FT3, CMP, TSH #### [facility] [address] [place] [address] Dr. Kareem Roldan Glucose [Mass/Vol] 117 mg/dL Critically high 74-106 [facility] Comment on above: Performed By: #### L IPID, FT3, CMP, TSH #### [facility] [address] [address] [address] Kareem Roldan Potassium [Moles/Vol] 4.1 mmol/L Normal 3.5-5.1 [facility] Comment on above: Performed By: #### L IPID, FT3, CMP, TSH #### [facility] [address] [address] [address] Kareem Roldan Protein [Mass/Vol] 6.7 g/dL Normal 6.4-8.2 [facility] Comment on above: Performed By: #### L IPID, FT3, CMP, TSH #### [facility] [address] [place] [address] Dr. Kareem Roldan Sodium [Moles/Vol] 141 mmol/L Normal 136-145 [facility] Comment on above: Performed By: #### L IPID, FT3, CMP, TSH #### [facility] [address] [place] [address] Dr. Kareem Roldan Urea nitrogen [Mass/Vol] 14.0 mg/dL Normal 7.0-18.0 [facility] Comment on above: Performed By: #### L IPID, FT3, CMP, TSH #### [facility] [address] [address] [address] Kareem Roldan Urea nitrogen/Creatinine [Mass ratio] 14.7 mg/mg Normal [facility] Comment on above: Performed By: #### L IPID, FT3, CMP, TSH #### [facility] [address] [address] [address] Kareem Roldan TSHon 10-25-2021 TSH 0.989 uIU/mL Normal 0.358-3.740 [facility] Comment on above: Performed By: #### L IPID, FT3, CMP, TSH #### [facility] [address] [address] [address] Kareem Roldan Vital Signs Date Time Vital Sign Value Performing Clinician Faci lity 12-29-2021 11:00-0400 Diastolic blood pressure 80 mm[Hg] MD Annel Eaton Work Phone: [facility] 12-29-2021 11:00-0400 Heart rate 85 /min MD Annel Eaton Work Phone: [facility] 12-29-2021 11:00-0400 Respiratory rate 16 /min MD Annel Eaton Work Phone: [facility] 12-29-2021 11:00-0400 SaO2% (BldA) [Mass fraction] 99 % MD Annel Eaton Work Phone: [facility] 12-29-2021 11:00-0400 Systolic blood pressure 133 mm[Hg] MD Annel Eaton Work Phone: [facility] 12-29-2021 08:37-0400 Body height 177.8 cm MD Annel Eaton Work Phone: [facility] 12-29-2021 08:37-0400 Body temperature 99.3 [degF] MD Annel Eaton Work Phone: [facility] 12-29-2021 08:37-0400 Body weight 108.86 kg MD Annel Eaton Work Phone: [facility] Encounters Encounter Date Encounter Type Care Provider Facility Start: 09-08-2024 ambulatory MD Renee Shine Facil ity:[facility] Start: 10-02-2023 ambulatory Sidney POWELL Facility :[facility] Start: 09-20-2023 End: 09-20-2023 ambulatory LOULOU CRUZ Not Available Start: 08-30-2023 ambulatory Renee Shine Facility:[facility] Start: 08-29-2023 End: 08-29-2023 Lab Drop off Renee Shine [facility] Start: 08-29-2023 End: 08-29-2023 ambulatory Renee Shine Facility:[facility] Start: 08-26-2023 End: 09-27-2023 ambulatory MD Renee Shine Facility:CD:[id number] Start: 01-02-2023 End: 01-02-2023 ambulatory ROBERT GOODMAN Facility:[facility] [facility] Start: 12-10-2022 End: 12-10-2022 ambulatory MD Renee Shine Facility:[facility] Start: 11-06-2022 End: 11-06-2022 Lab Drop off Renee Shine [facility] Start: 11-06-2022 End: 11-06-2022 ambulatory MD Renee Shine Facility:[facility] [place] Start: 10-31-2022 End: 10-31-2022 ambulatory MD Renee Shine Facility:[facility] Start: 10-31-2022 End: 10-31-2022 Patient encounter procedure Renee Shine [facility] Start: 07-31-2022 End: 08-01-[address] LOULOU CRUZ Facility: Start: 04-05-2022 End: 04-05-[address] LOULOU CRUZ Facility:[facility] Start: 02-20-2022 End: 02-21-[address] LOULOU CRUZ Facility:[facility] Start: 12-29-2021 End: 12-29-2021 ambulatory Annel Eaton Facility:[facility] Start: 12-29-2021 End: 12-29-2021 Admission to same day surgery center MD Annel Eaton Work Phone: [facility] Start: 12-29-2021 End: 12-29-2021 ambulatory MD Annel Eaton Work Phone: [facility] Work Phone: Start: 12-27-2021 End: 12-27-2021 ambulatory Jairo Nick Facility:[facility] Start: 12-27-2021 End: 12-27-2021 ambulatory MD Annel Eaton Work Phone: [facility] Work Phone: Start: 12-27-2021 End: 12-27-2021 Patient encounter procedure MD Annel Eaton Work Phone: [facility] Start: 10-25-2021 End: 10-26-[address] ANNEL EATON . Facility:[facility] Start: 10-19-2021 End: 10-19-[address] ANNEL EATON . Facility:[facility] Procedures Date Procedure Procedure Detail Performing Clinician Start: 12-29-2021 Colonoscopy MD Annel ludwig Work Phone: Start: 10-25-[address] ANNEL HAWKINS . Comment on above: Performed By: #### F T4, PSAD #### [facility] [address] [place] [address] Dr. Kareem Roldan Arthroscopy of knee Renee cali Comment on above: left, removed torn t issue, left rethaular release patella Hordeolum externum (disorder) Renee Shine Comment on above: couple surgeries lef t eye 2 years apart Other (qualifier value) Bhavin Shine Comment on above: cadavor cruciate lig ament left knee 2019 SARS Antigen (LFIA) MD Annel Syed night Work Phone: Plan of Treatment Date Care Activity Detail Author Start: 12-29-2021 [facility] Patient Education Hemorrhoids Co nasra Polyps Diverticulitis [facility] Work Phone: Immunizations Immunization Date Immunization Notes Care Provider Fa cility 09-26-2021 SARS-CoV-2 mRNA (lomuvymobhc-dtsd-jnviv se) vaccine Renee Shine [facility] 01-26-2021 influenza virus vaccine, unspecified formulation Renee Shine [facility] 01-26-2021 SARS-CoV-2 (COVID-19 ) mRNA BNT-162b2 vax Renee Shine [facility] Comment on above: Result Comment: 2022: [id number] 09-16-2020 tetanus toxoid, redu naveed diphtheria toxoid, and acellular pertussis vaccine, adsorbed Renee Shine [facility] 06-28-2020 SARS-CoV-2 (COVID-19 ) mRNA BNT-162b2 vax Renee Shine [facility] 06-06-2020 SARS-CoV-2 (COVID-19 ) mRNA BNT-162b2 rebekahx Renee Shine [facility] 01-28-2020 influenza virus vaccine, unspecified formulation Renee Shine [facility] 01-05-2019 influenza virus vaccine, unspecified formulation Renee Shine [facility] Payers Date Payer Category Payer Self-pay [id number] 1960 Unknown [id number] 2.16.84 [id number] 1960 Unknown [id number] 2.16.84 0.1.334519.3.579.2.593 1959 Unknown [id number] 2.16.84 0.1.523225.3.579.2.593 1959 Unknown [id number] 2.16.84 0.1.145913.3.579.2.593 1959 Unknown [id number] 2.16.84 0.1.071250.3.579.2.593 1959 Unknown [id number] 2.16.8 40.1.555320.3.579.2.727 1959 Unknown [id number] 2.16.84 0.1.021868.3.579.2.1259 1959 Unknown [id number] 2.16.8 40.1.139439.3.579.2.727 1959 Unknown [id number] 2.16.8 40.1.876306.3.579.2.727 1959 Unknown [id number] 2.16.8 40.1.351702.3.579.2.727 1959 Unknown [id number] 2.16.8 40.1.292888.3.579.2.727 1959 Unknown [id number] 2.16.8 40.1.042077.3.579.2.727 1959 Unknown [id number] 2.16.8 40.1.177386.3.579.2.727 1959 Unknown [id number] 2.16.8 40.1.694286.3.579.2.727 1959 Unknown [id number] 2.16.8 40.1.363150.3.579.2.727 1959 Unknown [id number] Unknown [id number] 2.16.8 40.1.600043.3.579.2.531 Unknown [id number] 2.16.8 40.1.396566.3.579.2.531 Social History Date Type Detail Facility Tobacco smoking stat us NHIS Unknown if ever smoked [facility] Work Phone: Start: 1960 Sex Assigned At Male [facility] Start: 12-29-2021 End: 08-29-2023 Tobacco smoking status NHIS Never smoked tobacco (finding) [facility] Tobacco smoking status Never [facility] Sex Assigned At Male [facility] Goals Date Patient Goal Desired Activity /State Clinical Notes 12-29-2021 to 08-26-2023 LaboratoryRadiologyLaboratoryRadiologyLaboratoryRadiology Note Date & Type Note Facility 08-26-2023 Note [id number] [facility] 08-22-2023 Note [id number]#1.00[facility] 12-29-2021 Procedure note [facility] Evaluation + Plan note Future Appointments Appointment Date:11/06/2022 08:20:00 AM Scheduled Provider: Location:[facility] Appointment Type: Lab Draw Appointment Date:12/10/2022 07:00:00 AM Scheduled Provider:Renee Shine MD Location:[facility] Appointment Type: Open Future Scheduled TestsPSA Screen, Total 09/10/22PSA Screen, Total 10/30/22TSH With T4fr Reflex 09/10/22TSH With T4fr Reflex 10/30/22CBC w/ Auto Diff 09/10/22CBC w/ Auto Diff 10/30/22Comprehensive Metabolic Panel 09/10/22Comprehensive Metabolic Panel 10/30/22Lipid Panel 09/10/22Lipid Panel 10/30/22MRI Knee w/o Contrast Right 10/24/22 [facility] Evaluation + Plan note Future Appointments Appointment Date:12/10/2022 07:00:00 AM Scheduled Provider:Renee Shine MD Location:[facility] Appointment Type: Open Future Scheduled TestsPSA Screen, Total 09/10/22TSH With T4fr Reflex 09/10/22CBC w/ Auto Diff 09/10/22Comprehensive Metabolic Panel 09/10/22Lipid Panel 09/10/22MRI Knee w/o Contrast Right 10/24/22 [facility] Evaluation + Plan note Future Appointments Appointment Date:09/08/2024 08:15:00 AM Scheduled Provider:Renee Shine MD Location:[facility] Appointment Type: Open Future Scheduled TestsPSA Screen, Total 09/10/22TSH With T4fr Reflex 09/10/22CBC w/ Auto Diff 09/10/22Comprehensive Metabolic Panel 09/10/22Lipid Panel 09/10/22MRI Knee w/o Contrast Right 11/07/22MRI Knee w/o Contrast Right 10/24/22 [facility] Evaluation note No assessment inform ation available [facility] Work Phone: Evaluation note Diagnosis Onset Date History of colon polyps acut e [facility] Work Phone: Hospital course Narrative No data available for this section [facility] Additional Instructions DISCHARGE INSTRUCTIONS FOR [...] if you have any problems. -Office number [phone] Work Phone: Hospital Discharge instructions No data available for this section [facility] No data available for this section [facility] Chief Complaint and Reason for Visit Chief [...] Eaton MD Primary Care Provider Active Jairo Nick MD Attending Provider Active Team Status: Active [...] section and content) DATE CREATED AUTHOR 01/02/2022 [facility] DATE CREATED AUTHOR AUTHOR'S ORGANIZ ATION 08/05/2022 [facility] DATE CREATED AUTHOR AUTHOR'S ORGANIZ ATION 08/31/2023 [facility] DATE CREATED AUTHOR AUTHOR'S ORGANIZ ATION 09/05/2023 [facility] DATE CREATED AUTHOR AUTHOR'S ORGANIZ ATION 09/22/2023 [facility] DATE CREATED AUTHOR AUTHOR'S ORGANIZ ATION 09/27/2023 [facility] FOR RECORDS PERTAINING TO PATIENTS WHO [...] BE BASED ON THE PRIMARY CLINICAL RECORDS. CC video [facility]. provides no warranty or guarantee of the accuracy or completeness of information in this document.
[2023-10-11] MEDS: LIDOCAINE HCL 10 ML, SODIUM BICARBONATE 1 MEQ INJ (11:10)
--- NOTE | 2023-10-11 12:01 | SUR.PREOP ---
09/30/23 Pt instructed on procedure, date, time, and prep. Instructed pt to hold ASA x 5 days prior to procedure.
== END 2023-10-11 11:35 | disposition home or self-care (01) ==
LOC: US 10:14
PROVIDERS: Radiology Diagnostic Radiology; PCP Family Medicine; Visit Provider Otolaryngology
DX: E04.2 Nontoxic multinodular goiter (principal); E03.9 Hypothyroidism, unspecified
CPT/HCPCS: 10005; 10006; 88173